=== PATIENT | female | born 1970 | race Caucasian/White ===

== ENCOUNTER 2023-12-22 20:12 | Inpatient (IN) | payer OTHER, SELFPAY ==
[2023-12-22 15:01] VITALS: BP 190/100
--- NOTE | 2023-12-22 16:39 | ED.GENMED ---
History of Present Illness
<Italia Lynn FLOOR SPACE ALLOCATOR - Last Filed: 12/24/23 16:34>
General
Chief Complaint: Skin Problem
Source: patient
Exam Limitations: none
Time Seen by Provider: 12/22/23 16:19
Nursing documentation reviewed up to this point in time: agreed with
Travel History
Have you had any contact with someone who has COVID-19?: No
Do you have any symptoms of coronavirus? Fever > 100 degrees, chills, cough, shortness of breath, sore throat, loss of taste or smell, muscle aches, or headache?: No
History of Present Illness
History of Present Illness:
53 yo female with hx of 'thrombotic genetic disorder' LLE DVT, on Xarelto for 'years' but has no taken it for 'several months.'
States 10/03/23 right foot felt numb but improved if she got up and moved around.
Has developed swelling and pain two weeks ago and has been wearing a compression stocking since, states she didn't realize how discolored it was until 5 days ago.
Has developed significant left lower leg swelling of calf over past 2 weeks.
Denies fever/chills. Denies CP or SOB. Denies n/v.
Past History
<Italia Lynn FLOOR SPACE ALLOCATOR - Last Filed: 12/24/23 16:34>
Past History
ED Past Medical History: Other ('Thrombotic genetic deficiency') and Other (DVT L LE)
ED Past Surgical History: Gynecological
Social History
Tobacco: Smoker
Personal: Single
Living: with family
Employment: Employed (Works from home)
Review of Systems
<Italia Lynn, FLOOR SPACE ALLOCATOR - Last Filed: 12/24/23 16:34>
Review of Systems
Allergies reviewed?: Yes
All Other Systems: ROS reviewed and negative except as documented in HPI and ROS
Constitutional: Denies fever
Cardiac: Denies chest pain
ABD/GI: Denies abdominal pain, nausea or vomiting
: Denies dysuria
Musculoskeletal: Reports edema
Skin: Reports other (Pain, discoloration, swelling right foot, black middle right toe, swelling left calf)
Phy Exam
<Italia Lynn, FLOOR SPACE ALLOCATOR - Last Filed: 12/24/23 16:34>
Physical Exam
Physical Exam:
GENERAL: No acute distress. A&Ox3.
CONSTITUTIONAL: Afebrile.
EYES: PERRL, conjunctivae normal
Neck: Supple
ENMT: moist mucus membranes, Pharynx nl
RESPIRATORY: Regular respirations, nonlabored, lungs clear.
CARDIOVASCULAR: Regular rate and rhythm, no murmurs, no rubs.
GI: Soft, nontender, normal BS
MUSCULOSKELETAL: Right lower extremity with ischemic distal foot; necrotic right middle toe, redness, purplish hue and cold foot. No audible Doppler PT or dorsal pulses, faint popliteal pulse audible
Left lower extremity with significant Swelling, no redness or warmth, faint dorsal and PT pulses audible with Doppler.
SKIN: Warm, dry, pink
PSYCH: Normal mood and affect. Well kept, interactive and appropriate
NEUROLOGIC: Awake, alert and oriented. No focal neurological deficits
Course
<Italia Lynn, FLOOR SPACE ALLOCATOR - Last Filed: 12/24/23 16:34>
Orders/Labs/Results
Orders:
Orders
12/22/23 Breakfast
Regular
At Your Request: Full Participation
Does patient need a safe tray?: No
12/22/23 16:33
CT Abd Aorta Angio W/ Run Off Urgent
Comment:
Reason For Exam: ischemic R foot
12/22/23 16:44
HYDROmorphone [Dilaudid] 0.5 mg .ROUTE .STK-MED ONE
12/22/23 16:51
Complete Blood Count/With Diff Urgent
Comprehensive Metabolic Panel Urgent
Protime/PTT Urgent
12/22/23 16:56
Heparin 6,200 units IV NOW STA
12/22/23 16:[address] Non Medication Order As Directed
Physician Order: PTT 6 hours after initial start of Heparin infusion
Above order entered?: Yes
12/22/23 17:00
Heparin 37308 Units/250 ml 25,000 units in 250 ml IV PER PROTOCOL
Weight to be used for heparin protocol in kilograms (kg):: 77.7
Protocol:: Vascular Surgery
PTT Goal Range to be used:: PTT 73 to 111 seconds
Order type:: Initial
INITIAL Infusion Dose (UNITS/KG/hr) & then follow protocol:: 18 units/kg/hr
Infusion Dose in UNITS/hr & then follow protocol (UNITS/hr):: 1,400
INFUSION RATE in mL/hr & then follow protocol (mL/hr):: 14
PTT less than or equal to 64 seconds:: Notify Ordering Provider. obtain orders for rate increase &
possible bolus
PTT 64.1 to 72.9 seconds:: Increase rate by 100 units/hr (+ 1 mL/hr)
PTT 73 to 111 seconds:: Target Range. No change in rate.
PTT 111.1 to 130.9 seconds:: Decrease rate by 100 units/hr (- 1 mL/hr)
PTT 131 to 199.9 seconds:: HOLD for 1 hour. Then decrease rate by 200 units/hr (- 2 mL/hr)
PTT greater than or equal to 200 seconds:: STOP INFUSION. Notify Ordering provider to obtain further orders.
Lab follow-up:: Each change, PTT q6h until 2 consecutive are therapeutic. Then PTT
daily.
12/22/23 17:01
HYDROmorphone [Dilaudid] 0.5 mg IV NOW STA
12/22/23 18:24
Electrocardiogram (*1) Urgent
Reason for Study: Tachycardia
12/22/23 19:36
Admit/Transfer Patient As Directed
Co-Sign Provider:
Level of Care: Inpatient admission
Assign to:: IVU
Physician / Group: Tony Guzman
Diagnosis: Right Ischemic Foot
Reason for Hospitalization: heparin drip
Expected length of stay greater than two midnights?: Yes
ELOS- Estimated Length of Stay in days: 3
I certify the patient meets the requirements for IP care: Yes
12/22/23 19:37
Code Status As Directed
Resuscitation Status: Full Code
12/22/23 20:34
Acetaminophen [Tylenol] 650 mg PO Q4HPRN PRN
12/22/23 20:34
Vascular Surgery Consult Routine
Consulting Provider: Homer Cee III
Was physician already notified: Yes
Heparin Protocol- PTT Orders As Directed
PTT per Heparin protocol: -Obtain CBC and baseline PTT - if not already collected.
-Obtain PTT 6 hours from start of infusion. Then, every 6 hours until 2 consecutive
PTT's are therapeutic. Then, PTT Daily.
-With each rate change, obtain PTT every 6 hours until 2 consecutive PTT's are
therapeutic. Then, PTT Daily.
Activity As Directed
Activity Level: Out of Bed- Chair
I&O [Intake/ Output] As Directed
Frequency: q12h
Notify MD As Directed
Notify physician if: PTT is greater than or equal to 200.
Vital Signs As Directed
Frequency: Per unit guidelines
Weight As Directed
Frequency: Daily
12/22/23 23:36
PTT Urgent
12/23/23 Breakfast
NPO
Allow oral meds: Yes
Allow clear liquids: 4hrs prior to procedure
Comment: may have unrestricted clear liquid up to 4 hrs prior to scheduled procedure
12/23/23 08:33
Basic Metabolic Panel IN AM
Complete Blood Count/No Diff IN AM
Magnesium IN AM
12/24/23 03:09
Complete Blood Count/No Diff Q2D
Comment: notify provider: Platelet count < 130,000 or decrease by 50% from baseline
Abnormal Lab Results
12/22/23
16:51
Hgb 16.3 H g/dL
(12.0-16.0)
MCH 33.2 H pg
(27.0-31.0)
Absolute Neuts (auto) 7.4 H 10^3/uL
(1.4-6.5)
Absolute Monos (auto) 0.8 H 10^3/uL
(0.1-0.6)
Lymphocytes % 16.5 L %
(20.5-51.1)
Carbon Dioxide 19 L mmol/L
(22-30)
Glucose 103 H mg/dl
(70-99)
12/22/23 16:51
12/22/23 16:51
Vital Signs
Initial and Last Documented VS:
Initial Vital Signs
Temp Pulse Resp BP Pulse Ox
98.2 F 110 18 190/100 98
12/22/23 15:01 12/22/23 15:01 12/22/23 15:01 12/22/23 15:01 12/22/23 15:01
Last Documented Vital Signs
Temp Pulse Resp BP Pulse Ox
98 F 63 16 106/53 96
12/24/23 15:37 12/24/23 15:37 12/24/23 15:37 12/24/23 15:39 12/24/23 15:37
Jay Jaylt;Tito Linares DO - Last Filed: 12/22/23 20:17>
Orders/Labs/Results
Orders:
Orders
12/22/23 Breakfast
Regular
At Your Request: Full Participation
Does patient need a safe tray?: No
12/22/23 16:33
CT Abd Aorta Angio W/ Run Off Urgent
Comment:
Reason For Exam: ischemic R foot
12/22/23 16:44
HYDROmorphone [Dilaudid] 0.5 mg .ROUTE .STK-MED ONE
12/22/23 16:51
Complete Blood Count/With Diff Urgent
Comprehensive Metabolic Panel Urgent
Protime/PTT Urgent
12/22/23 16:56
Heparin 6,200 units IV NOW STA
12/22/23 16:[address] Non Medication Order As Directed
Physician Order: PTT 6 hours after initial start of Heparin infusion
Above order entered?: Yes
12/22/23 17:00
Heparin 07268 Units/250 ml 25,000 units in 250 ml IV PER PROTOCOL
Weight to be used for heparin protocol in kilograms (kg):: 77.7
Protocol:: Vascular Surgery
PTT Goal Range to be used:: PTT 73 to 111 seconds
Order type:: Initial
INITIAL Infusion Dose (UNITS/KG/hr) & then follow protocol:: 18 units/kg/hr
Infusion Dose in UNITS/hr & then follow protocol (UNITS/hr):: 1,400
INFUSION RATE in mL/hr & then follow protocol (mL/hr):: 14
PTT less than or equal to 64 seconds:: Notify Ordering Provider. obtain orders for rate increase &
possible bolus
PTT 64.1 to 72.9 seconds:: Increase rate by 100 units/hr (+ 1 mL/hr)
PTT 73 to 111 seconds:: Target Range. No change in rate.
PTT 111.1 to 130.9 seconds:: Decrease rate by 100 units/hr (- 1 mL/hr)
PTT 131 to 199.9 seconds:: HOLD for 1 hour. Then decrease rate by 200 units/hr (- 2 mL/hr)
PTT greater than or equal to 200 seconds:: STOP INFUSION. Notify Ordering provider to obtain further orders.
Lab follow-up:: Each change, PTT q6h until 2 consecutive are therapeutic. Then PTT
daily.
12/22/23 17:01
HYDROmorphone [Dilaudid] 0.5 mg IV NOW STA
12/22/23 18:24
Electrocardiogram (*1) Urgent
Reason for Study: Tachycardia
12/22/23 19:36
Admit/Transfer Patient As Directed
Co-Sign Provider:
Level of Care: Inpatient admission
Assign to:: IVU
Physician / Group: Tony Guzman
Diagnosis: Right Ischemic Foot
Reason for Hospitalization: heparin drip
Expected length of stay greater than two midnights?: Yes
ELOS- Estimated Length of Stay in days: 3
I certify the patient meets the requirements for IP care: Yes
12/22/23 19:37
Code Status As Directed
Resuscitation Status: Full Code
12/22/23 20:34
Acetaminophen [Tylenol] 650 mg PO Q4HPRN PRN
12/22/23 20:34
Vascular Surgery Consult Routine
Consulting Provider: Homer Cee III
Was physician already notified: Yes
Heparin Protocol- PTT Orders As Directed
PTT per Heparin protocol: -Obtain CBC and baseline PTT - if not already collected.
-Obtain PTT 6 hours from start of infusion. Then, every 6 hours until 2 consecutive
PTT's are therapeutic. Then, PTT Daily.
-With each rate change, obtain PTT every 6 hours until 2 consecutive PTT's are
therapeutic. Then, PTT Daily.
Activity As Directed
Activity Level: Out of Bed- Chair
I&O [Intake/ Output] As Directed
Frequency: q12h
Notify MD As Directed
Notify physician if: PTT is greater than or equal to 200.
Vital Signs As Directed
Frequency: Per unit guidelines
Weight As Directed
Frequency: Daily
12/22/23 23:36
PTT Urgent
12/23/23 Breakfast
NPO
Allow oral meds: Yes
Allow clear liquids: 4hrs prior to procedure
Comment: may have unrestricted clear liquid up to 4 hrs prior to scheduled procedure
12/23/23 08:33
Basic Metabolic Panel IN AM
Complete Blood Count/No Diff IN AM
Magnesium IN AM
12/24/23 03:09
Complete Blood Count/No Diff Q2D
Comment: notify provider: Platelet count < 130,000 or decrease by 50% from baseline
Abnormal Lab Results
12/22/23
16:51
Hgb 16.3 H g/dL
(12.0-16.0)
MCH 33.2 H pg
(27.0-31.0)
Absolute Neuts (auto) 7.4 H 10^3/uL
(1.4-6.5)
Absolute Monos (auto) 0.8 H 10^3/uL
(0.1-0.6)
Lymphocytes % 16.5 L %
(20.5-51.1)
Carbon Dioxide 19 L mmol/L
(22-30)
Glucose 103 H mg/dl
(70-99)
12/22/23 16:51
12/22/23 16:51
Vital Signs
Initial and Last Documented VS:
Initial Vital Signs
Temp Pulse Resp BP Pulse Ox
98.2 F 110 18 190/100 98
12/22/23 15:01 12/22/23 15:01 12/22/23 15:01 12/22/23 15:01 12/22/23 15:01
Last Documented Vital Signs
Temp Pulse Resp BP Pulse Ox
98 F 63 16 106/53 96
12/24/23 15:37 12/24/23 15:37 12/24/23 15:37 12/24/23 15:39 12/24/23 15:37
Jay Jaylt;Italia Lynn, FLOOR SPACE ALLOCATOR - Last Filed: 12/24/23 16:34>
MDM/Problems Addressed
Differential Diagnosis Includes:
LLE DVT
RLE limb ischemia, gangrene toe
MDM/Problems Addressed:
53 yo female with hx of 'thrombotic genetic disorder' LLE DVT, on Xarelto for 'years' but has no taken it for 'several months.'
States 10/03/23 right foot felt numb but improved if she got up and moved around.
Has developed swelling and pain two weeks ago and has been wearing a compression stocking since, states she didn't realize how discolored it was until 5 days ago.
Has developed significant left lower leg swelling of calf over past 2 weeks.
Denies fever/chills. Denies CP or SOB. Denies n/v.
Right lower extremity with ischemic distal foot; necrotic right middle toe, redness, purplish hue and cold foot. No audible Doppler PT or dorsal pulses, faint popliteal pulse audible
Left lower extremity with significant Swelling, no redness or warmth, faint dorsal and PT pulses audible with Doppler
Dr. Linares in to evaluate. CTA with runoff ordered. Heparin drip started
Consulted Vascular surgeon Dr. Cee who will evaluate patient
12/22/[address] Linares updated, he will assume care from this point.
Patient is awaiting CTA with runoff.
<Italia Lynn FLOOR SPACE ALLOCATOR - Last Filed: 12/24/23 16:34>
*Critical Care Note
Total Time (30-74mins, 75-104mins- exclusive of procedures): Not Applicable
ED Attending Note
<Italia Lynn FLOOR SPACE ALLOCATOR - Last Filed: 12/24/23 16:34>
-
Portions of this chart may have been created with voice recognition software.� Occasional wrong word or��sound alike� substitutions may have occurred due to the inherent limitations of voice recognition software.
<Tito Linares DO - Last Filed: 12/22/23 20:17>
ED Attending Note
Patient seen and examined by attending physician: Yes
I performed the substantive portion of visit, reviewed & personally made and approve the management plan that is documented in note by myself or RAHUL.: Yes
ED Attending Note:
I agree with Terra's note
Patient with pain and discoloration of right foot. Patient began having some foot discomfort approximately 3 months ago. She was also having claudication with exertion. Over the past 2 weeks symptoms have increased in severity. She began
noticing some discoloration of the foot. Patient states she was wearing some sort of compression sock to help improve blood flow of her legs and was not able to visualize her foot for several days. Recently when she removed the compression socks
she noted discoloration of her toes.
Vital signs are unremarkable
General: Awake, Alert, Oriented X3. No acute distress.
Vitals: unremarkable
Head: Atraumatic
Eyes: Pupils equal, EOMI
Throat: Airway intact, no exudates
Neck: Trachea midline
Lungs: Clear and equal b/l
Heart: Regular rate, no murmurs
Abd: Soft, Nontender, No pulsatile mass
Neuro: Nonfocal
Skin: Warm, dry, no rash
Right lower extremity: Limb is cold from the mid tibia down. There is mottling of the foot and alek gangrene of the third toe. No palpable pulses. DP and PT pulses are not detectable with Doppler device.
Heparin drip
Vascular eval
CT angiogram with runoff
Admit to the hospitalist
Discharge Plan
Departure
Patient Disposition: Admit
Date of Disposition: 12/22/23
Time of Disposition: 18:26
Presentation/result/management discussed w/ accepting MD/DO: Dr. Cee
Condition: Serious
Discharge Problem:
Critical limb ischemia of right lower extremity with ulceration of foot, Swelling of left lower extremity
Interventions
Interventions:
*Risk Screen - Suicide Last Done: 12/22/23 16:55
*General Assessment Last Done: 12/22/23 16:55
*Neglect/Abuse Screening Last Done: 12/22/23 16:55
ED- Fall Risk Assessment Last Done: 12/22/23 16:59
*ED COVID-19 Vaccine History Last Done: 12/22/23 16:55
*Nursing Disposition Last Done: 12/22/23 20:40
ED-Skin Assessment Last Done: 12/22/23 16:59
Discharge Date and Time
Discharge Date/Time: 12/22/23 20:41
[2023-12-22 16:54] VITALS: BMI 29.4
[2023-12-22 16:58] LABS: % Basophils 0.3 % (0-2); % Eosinophils 0.1 % (0-6); % Immature Granulocytes 0.2 % (0-0.5); % Lymphocytes 16.5 % (20.5-51.1); % Monocytes 7.7 % (1.7-9.3); % Neutrophils 75.2 % (42.2-75.2); Absolute Lymphocytes 1.6 10^3/uL (1.2-3.4); Absolute Monocytes 0.8 10^3/uL (0.1-0.6); Absolute Neutrophils 7.4 10^3/uL (1.4-6.5); Hematocrit 46.9 % (37.0-47.0); Hemoglobin 16.3 g/dL (12.0-16.0); Mean Corp Hgb Conc. 34.8 g/dL (33.0-37.0); Mean Corpuscular Hgb 33.2 pg (27.0-31.0); Mean Corpuscular Volume 95.5 fL (81.0-99.0); Mean Platelet Volume 9.7 fL (7.4-10.4); Nucleated Red Blood Cells % 0 %; Platelet Count 263 10^3/uL (130-400); Red Blood Cell Count 4.91 10^6/uL (4.20-5.40); Red Cell Dist. Width 12.9 % (11.5-14.5); White Blood Cell Count 9.8 10^3/uL (4.8-10.8)
[2023-12-22] MEDS: DILAUDID 0.5 MG IV (17:01)
[2023-12-22 17:10] LABS: APTT 25.9 Sec (23.4-35.0); INR 0.96; PT 12.5 Sec (11.4-14.6)
[2023-12-22 17:14] LABS: ALT (SGPT) 20 U/L (0-35); AST (SGOT) 27 U/L (14-36); Albumin 4.2 g/dl (3.5-5.0); Alkaline Phosphatase 118 U/L (38-126); Blood Urea Nitrogen 11 mg/dl (7-17); Calcium 9.5 mg/dl (8.4-10.2); Carbon Dioxide 19 mmol/L (22-30); Chloride 105 mmol/L (98-107); Estimated Creatinine Clearance 109 ml/min; Glucose 103 mg/dl (70-99); Potassium 4.4 mmol/L (3.5-5.1); Sodium 137 mmol/L (135-145); Total Protein 7.7 g/dl (6.3-8.2); eGFR > 60.00
[2023-12-22] MEDS: HEPARIN 25000 UNITS/250 ML IV (17:29)
[2023-12-22] MEDS: HEPARIN 6200 UNITS IV (17:29)
--- NOTE | 2023-12-22 18:28 | CON.VAS ---
Consultation
Consultation Request
Date/Time Consultation Requested: 12/22/23
Date/Time Consultation Performed: 12/22/23
Requesting Provider: ED
Performing Provider: Coleman
Reason for Consultation: Ischemic right foot
Medical History
-
Chief Complaint: Ischemic right foot
History of Present Illness:
53-year-old female with past medical history notable for multiple left lower extremity DVTs, hypercoagulability with prothrombin gene mutation, noncompliance with anticoagulation and active smoking (1 pack/day times ~ 40 years) who presents to the
ED with painful discoloration of her right foot.
She notes numbness starting in her right foot and toes around Thanksgiving. Progressively worse since that time. 3 to 4 weeks of worsening right foot pain and progressive discoloration. Initially tried to treat the symptoms with a compression
sock and reports that she did not look at her foot for a while. She now has diffuse ischemic skin changes of her right foot and toes with dry gangrene.
She has not taken her anticoagulation in over a month.
She also notes 3 to 4-day onset of significant left calf swelling
She denies palpitations. No known history of arrhythmia.
Past Medical History
Past Medical History: Other (Multiple LLE DVT; Prothrombin gene mutation)
Social History
Tobacco: Smoker (1 ppd x 40 years; active)
Allergies / Home Medications
Allergy/AdvReac Type Severity Reaction Status Date / Time
No Known Allergies Allergy Verified 12/22/23 15:05
Medication Instructions Recorded Confirmed Type
naproxen sodium 220 mg tablet 220 mg PO BID PRN MILD PAIN 12/22/23 12/22/23 History
(Aleve)
Review of Systems
-
All other systems: Negative unless noted
Physical Exam
Vital Signs
Temp Pulse Resp BP Pulse Ox
98.2 F 110 18 190/100 98
12/22/23 15:01 12/22/23 15:01 12/22/23 15:01 12/22/23 15:01 12/22/23 15:01
Lab Results
12/22/23 16:51
12/22/23 16:51
Physical Exam
General: Well Developed, Well Nourished and Other (Seems inappropriately calm considering the appearance of her foot)
HEENT: Normocephalic and Anicteric
Respiratory: Non Labored Respirations
Cardiac: Regular Rhythm
Musculoskeletal: Edema (asymmetric Left calf edema; right calf is soft and warm to touch.)
Skin: Warm and Other (Ischemic changes to right foot and toes. Dry gangrene present. Foot is cool vs the left. See images. )
Neuro: AO x 3
Psych: Calm
Pulses: Bilateral Femoral: +2, Right Popliteal: Doppler, Right Dorsalis Pedis: Doppler (No dopp signal present) and Right Posterior Tibial: Doppler (No dopp signal present)
Assessment / Plan
-
Significant ischemia of the right foot and toes with symptom onset at the end of September 2023 and progressing since that time. She is an active smoker and has a hypercoagulable state from prothrombin gene mutation. She has been noncompliant with
anticoagulation.
Obtain CT angiogram of the abdomen, pelvis and bilateral lower extremity runoff
Obtain left lower extremity venous duplex to rule out acute DVT given recent onset left calf swelling
Heparin drip with titration to therapeutic PTT goal
N.p.o. after midnight for possible right lower extremity arteriogram 12/23/2023
I explained to the patient that her foot may not be salvageable and she may ultimately require major amputation.
Homer Cee III, MD
[facility] Vascular Surgery
[phone] (turw)
Data Reviewed
-
Labs: Labs Reviewed by me
[2023-12-22 18:46] VITALS: BP 143/79
--- NOTE | 2023-12-22 19:22 | HPS.HSE ---
Addendum entered and electronically signed by Tony Guzman MD 12/23/23 08:42:
53-year-old female with a past medical history of hypercoagulability with prothrombin gene mutation, multiple left lower extremity DVTs, noncompliance with anticoagulation, and active cigarette nicotine dependency presents with pain, and numbness of
her right toes. Her right third toe is necrotic. She admits to stopping her Xarelto a few months ago because she is 'not good with medications'.
Will treat with IV heparin drip, n.p.o. after midnight, patient for right lower extremity arteriogram as per vascular surgery.
I have personally seen and examined the patient on 12/22/23, and agree with the plan of care as documented by Maria Luisa Laguerre PA-C.
Advance care planning discussed, patient is a full code.
All other issues as outlined by the advanced care practitioner.
Original Note:
Family Physician
-
Family Physician: NOT KNOW UNKNOWN - PT DOES
Chief Complaint
-
Right foot discoloration
History of Present Illness
Pt is a 53 yo F with past medical history of several superficial clots and two DVTs over the last 30 years who is presenting today complaining of loss of sensation to the distal right foot. She states the sensation of numbness began 5 days ago, but
she described this as 'nerve pain' and thought it was sciatica. She states that she had been able to move around and the feeling would return initially, but she noticed discoloration of the third and fourth toe and decided to come in when the third
toe became black. She had been taking Xarelto but states that she 'is not good at taking medications' and stopped taking them a few months ago. She also admits to currently smoking a pack of cigarettes daily and advises that she is aware of her need
to quit.
Medical History
Past Medical History
Past Medical History: Reports Other
Additional Past Medical History:
Multiple DVTs
Anti-Thrombin Deficiency
Past Surgical History: Reports Gynocological
Social History
Tobacco: Smoker (1 ppd)
Alcohol: Occasional
Family History
Family History: Adopted
Allergies / Home Medications
Allergies reflects when Allergies were last updated in [facility].
Home Medications with original date entered in [facility]
Allergy/Medication List:
Allergies
Allergy/AdvReac Type Severity Reaction Status Date / Time
No Known Allergies Allergy Verified 12/22/23 15:05
Home Medications
naproxen sodium 220 mg tablet (Aleve) 220 mg PO BID PRN MILD PAIN 12/22/23
Review of Systems
-
A 12 point ROS was completed and negative except as noted: Yes
Constitutional: Denies Fever or Chills
Respiratory: Denies Cough or Trouble Breathing
Cardiac: Denies Chest Pain or Palpitations
Physical Exam
Vital Signs
Vital Signs
Temp Pulse Resp BP Pulse Ox
98.2 F 95 18 143/79 94
12/22/23 15:01 12/22/23 18:46 12/22/23 18:46 12/22/23 18:46 12/22/23 18:46
Physical Exam
General: Comfortable and Conversant
HEENT: Anicteric and Moist mucous membranes
Respiratory: Clear and Non Labored Respirations
Cardiac: S1/S2 and Regular Rhythm
GI: Soft and Non Tender
Rectal: Deferred by Provider
Musculoskeletal: No Clubbing, No Cyanosis, Edema, Left Lower Extremity and Edema, Right Lower Extremity
Skin: Other (Right third toe necrotic, Skin discoloration of all other toes; Right Foot cold to touch)
Neuro: Awake, Alert and Oriented
Psych: Calm
Laboratory Results
-
12/22/23 16:51
12/22/23 16:51
Laboratory Results
PT 12.5 Sec (11.4-14.6) 12/22/23 16:51
INR 0.96 12/22/23 16:51
APTT Cancelled 12/22/23 16:58
Total Bilirubin 1.0 mg/dl (0.2-1.3) 12/22/23 16:51
AST 27 U/L (14-36) 12/22/23 16:51
ALT 20 U/L (0-35) 12/22/23 16:51
Alkaline Phosphatase 118 U/L (38-126) 12/22/23 16:51
Data Reviewed
-
Lab Data: Labs Reviewed by me
Impression/Plan
-
Right Foot Ischemia
-Consult Vascular Surgery
-Continue heparin drip
-NPO after midnight for RLE Arteriogram tomorrow
Anti-Thrombin III Deficiency
-Patient previously on Xarelto but stopped taking several months ago
Tobacco Use Disorder
-Encourage smoking cessation
Code Status: Full Code
[2023-12-22 20:45] VITALS: BMI 29.7
[2023-12-22 20:49] VITALS: BP 131/74
[2023-12-22] MEDS: TYLENOL 650 MG PO (21:20)
[2023-12-22 23:38] VITALS: BP 132/74
[2023-12-23] VITALS (17 sets, daily range): BP systolic 114–141; BP diastolic 57–84; BMI 29.4
[2023-12-23 00:37] LABS: APTT 160.9 Sec (23.4-35.0)
[2023-12-23] MEDS: TYLENOL 650 MG PO ×4 (01:46→16:45)
--- NOTE | 2023-12-23 04:44 | PTCARENOTE ---
Addendum entered by Vivian Alvarado RN 12/23/23 04:55:
IV heparin gtt infusing at 12ml/hr, next ptt due at 07:40. Will pass along to day shift RN.
Original Note:
Received patient from ED via stretcher into room 2241 at approximately 20:35. Patient ambulated self to bed, and is partial weightbearing on right foot d/t the pain. Right lower leg w/ trace edema, and unable to Doppler pedal pulses. Per Dr. Cee
report, assessment unchanged. Left lower leg red, warm to touch, and +2 pitting edema. See nursing assessment for further skin assessment. WOC consulted. Tele monitor applied pt SR-Sinus bradycardia. VSS, and sating 96% RA. Patient aware of NPO
status. Oriented patient to room, call chowdary within reach.
[2023-12-23 08:58] LABS: APTT 92.9 Sec (23.4-35.0)
[2023-12-23 09:02] LABS: Hematocrit 41.3 % (37.0-47.0); Hemoglobin 14.3 g/dL (12.0-16.0); Mean Corp Hgb Conc. 34.6 g/dL (33.0-37.0); Mean Corpuscular Hgb 32.9 pg (27.0-31.0); Mean Corpuscular Volume 94.9 fL (81.0-99.0); Mean Platelet Volume 10.3 fL (7.4-10.4); Platelet Count 226 10^3/uL (130-400); Red Blood Cell Count 4.35 10^6/uL (4.20-5.40); Red Cell Dist. Width 12.9 % (11.5-14.5); White Blood Cell Count 8.5 10^3/uL (4.8-10.8)
[2023-12-23 09:42] LABS: Blood Urea Nitrogen 14 mg/dl (7-17); Calcium 9.1 mg/dl (8.4-10.2); Carbon Dioxide 22 mmol/L (22-30); Chloride 108 mmol/L (98-107); Estimated Creatinine Clearance 94 ml/min; Glucose 98 mg/dl (70-99); Magnesium 2.2 mg/dl (1.6-2.3); Potassium 4.1 mmol/L (3.5-5.1); Sodium 138 mmol/L (135-145); eGFR > 60.00
--- NOTE | 2023-12-23 10:32 | W.PN.HOSP.TC ---
Today's Communication/Plan
-
For right lower extremity arteriogram today
Assessment / Plan
Assessment / Plan
HPI: 53-year-old female with a past medical history of hypercoagulability with prothrombin gene mutation, multiple left lower extremity DVTs, noncompliance with anticoagulation, and active cigarette nicotine dependency presents with pain, and
numbness of her right toes.� Her right third toe is necrotic.� She admits to stopping her Xarelto a few months ago because she is 'not good with medications'.
Right Foot Ischemia
-Appreciate vascular surgery input, for RLE Arteriogram today
-Continue heparin drip, pain meds
Anti-Thrombin III Deficiency
Medication noncompliance
-Patient previously on Xarelto but stopped taking several months ago
Tobacco Use Disorder
-Encourage smoking cessation, nicotine patch as needed
DVT prophylaxis�heparin drip
Full code
Physical Exam
General: No acute distress
HEENT: Normocephalic, Atraumatic, EOMI, MMM
Respiratory: Clear to Auscultation bilaterally
Cardiac: Normal S1/S2, Regular Rate and Rhythm
GI: Soft, Nontender, Nondistended, Normal Bowel Sounds
Extremities: No Clubbing, Cyanosis
Bilateral lower extremity edema noted
Erythema of right toes with necrotic right third toe noted
Anticipated Discharge: > 48 hours
Subjective/Interval History
-
Date of Service: December 23, 2023
Patient reports her right toe pain is tolerable.
Objective Data
-
Labs:
Laboratory Results
12/22/23 12/23/23
23:36 08:33
WBC 8.5
Hgb 14.3
Hct 41.3
Plt Count 226
APTT 160.9 H* 92.9 H
Sodium 138
Potassium 4.1
Chloride 108 H
Carbon Dioxide 22
BUN 14
Creatinine 0.7
Glucose 98
Calcium 9.1
Vital Signs:
Vital Signs
Temp Pulse Resp BP Pulse Ox
98.1 F 59 16 139/73 98
12/23/23 06:45 12/23/23 07:00 12/23/23 06:45 12/23/23 06:47 12/23/23 08:00
I&O
12/22/23 12/23/23 12/24/23
06:59 06:59 06:59
Intake Total 490 / 490
Balance 490 / 490
--- NOTE | 2023-12-23 14:06 | W.PN.UPDATE ---
Update Note
Progress Note Update
Updated patient on the results of her CTA. Extensive RLE occlusions involving the PFA/SFA with limited tibial reconstitution. I dont see any reconstitution of the profunda in the thigh. Symptoms have been ongoing since the end of September 2023 with
recent progression of right foot pain over 3-4 weeks. CTA and venous duplex also demonstrate left iliac vein occlusion with DVT involving CFV/pop vein.
I am recommending a RLE arteriogram. Unclear if there are any revascularization options at this point based on the CTA. Explained that she may require an amputation if revascularization cannot be performed.
Technical aspects of arteriogram and possible endovascular intervention discussed with her in detail. Benefits and rationale for this approach discussed with her. Operative risks discussed with her in detail including but not limited to bleeding,
infection, contrast nephropathy, distal embolization and limb loss. She expressed a clear understanding and agrees to proceed.
--- NOTE | 2023-12-23 14:19 | W.SUR.PREOP ---
Pre-Operative Surgical Note
-
I have examined this patient prior to the performance of the scheduled procedure.
The patient's condition is unchanged from the time of the current History and
Physical and the patient is able to undergo the scheduled procedure.
--- NOTE | 2023-12-23 14:22 | WOUNDNOTE ---
MEREDITH RN NOTE: Patient admitted with critical limb ischemia or R leg/foot. Viewed pictures taken by vascular. Patient currently off floor getting an arteriogram, nurse Ritu said she just left. No reported drainage and no dressing in use states nurse.
Will follow along peripherally and assist as needed.
--- NOTE | 2023-12-23 14:45 | CM ---
spoke to pt in room, she is prev indep, lives withher son in a 2 story home with a first floor set up. she denies any dme's. dc plans uncertain at this time. cm following.
--- NOTE | 2023-12-23 15:12 | W.SUR.POST ---
Surgical Immediate Post Op
Note
Pre Op Diagnosis: PAD, right lower extremity nonhealing wound
Post Op Diagnosis: PAD, right lower extremity nonhealing wound
Procedure Performed: Aortogram, diagnostic right lower extremity arteriogram
Primary Surgeon: Homer Cee III, MD
Secondary Surgeons: N/A
Anesthesia: MAC
Estimated Blood Loss: 3 mL
Fluids: See anesthesia flowsheet
Drains/Shunts: N/A
Specimens/Cultures: N/A
Doppler/Duplex/Angio (Y/N): Y
Complications: None
Operative Findings: Peripheral artery disease not amenable to endovascular revascularization
--- NOTE | 2023-12-23 16:05 | OR.RPT ---
Operative Report
Operative Report
Date of Operation: 12/23/2023
Pre Op Diagnosis: Critical limb threatening ischemia right lower extremity
Post Op Diagnosis: Critical limb threatening ischemia right lower extremity
Procedure:
1.) Selective catheterization of second-order lower extremity artery
2.) Diagnostic aortobiiliac arteriogram
3.) Diagnostic right lower extremity arteriogram
4.) Ultrasound-guided percutaneous access to the left common femoral artery
Surgeon: Homer Cee III, MD
Anesthesia: Sedation with local
Fluoroscopy:
10.9 min
86 mGy
23.31 Gy.cm2
Complications: None
Estimated Blood Loss: Less than 10 cc
History and Indications for Procedure: 53-year-old female with active smoking and hypercoagulable state secondary to prothrombin gene mutation. She presents with chronic and progressive right lower extremity ischemia with symptom onset at the end
of September.
Procedure in Detail: Susan Nguyen was correctly identified and placed supine on the operating table. After adequate induction of anesthesia the bilateral groins were prepped and draped in the usual sterile fashion. A timeout was performed with
the nursing and anesthesia staff confirming the patient's identity as well as the nature and laterality of the procedure.
The left common femoral artery was identified under ultrasound guidance. The artery was patent. The superior and inferior aspects of the femoral head were identified with radiographic guidance and marked at the skin level. The proposed puncture site
was infiltrated with local anesthesia. We saved a copy of the ultrasound image to the medical record. Under ultrasound guidance we accessed the left common femoral artery with a micropuncture needle and upsized to a 5 Fr sheath over a Bentson wire.
The wire and a [employer] hook flush catheter were advanced into the distal abdominal aorta and a diagnostic aorto-biiliac arteriogram was performed:
AORTO-ILIAC ARTERIOGRAM:
Aorta: Patent with no stenosis identified.
Right common iliac artery: Patent with no stenosis identified
Right external iliac artery: Patent with no stenosis identified
Left common iliac artery: Patent with no stenosis identified
Left external iliac artery: Patent with no stenosis identified
Under roadmap guidance using a Glidewire and the [employer] hook catheter we selected the right common iliac artery and then the external iliac artery. A catheter was tracked up and over the aortic bifurcation and placed in the distal external iliac
artery. A diagnostic right lower extremity arteriogram was then performed which demonstrated the following:
RIGHT LOWER EXTREMITY:
Common femoral artery: Patent with no stenosis identified
Profunda femoral artery: Occluded at its origin. Reconstitution of some distal profunda branches in the thigh is identified via superficial femoral artery branch collaterals.
Superficial femoral artery: Patent to the mid thigh. Abruptly occludes. Large dilated collateral branch at the site of occlusion continues distally in the thigh. Dilated SFA branches in the thigh.
Popliteal artery: Occluded
Anterior tibial artery: Occluded with no distal reconstitution. No reconstitution of the dorsalis pedis artery is identified.
Tibioperoneal trunk: Occluded
Peroneal artery: Reconstitutes in the mid/distal calf. Branches at the ankle reconstitute the posterior tibial artery behind the medial malleolus.
Posterior tibial artery: Occluded. Peroneal collaterals reconstitute the PT behind the ankle. Plantar branch flow is seen however there is no contrast flow beyond the midfoot.
Satisfied with this diagnostic result we then concluded the procedure. The catheter was removed from the 5 [place] sheath. The sheath was secured in place with the plan to pull it in the recovery room.
The patient tolerated the procedure well and was taken to the recovery area in stable condition.
Signed:
Homer Cee III, MD
[facility] Vascular Surgery
[phone] (oick)
--- NOTE | 2023-12-23 17:03 | PTCARENOTE ---
pt received this am with moderate pain in right foot and toes. Pt taking tylenol 650mg with partial relief. Pt denies need for morphine. Ambulating to the bathroom, gait steady. Pt received post procedure from PACU at 1637. Pt awake, alert and
oriented. Medicated with tylenol 650 mg po as requested for right foot pain. Left groin site dressing dry and intact with no hematoma. Bedrest and flat maintained as ordered.
[2023-12-23] MEDS: NSS 1000 IV (17:14)
--- NOTE | 2023-12-23 18:41 | PTCARENOTE ---
Pt oob to the chair and to the BR with the walker. Gait steady. C/o of mild dyspnea with exertion. Pt states she occasionally has brief periods of indigestion. Pt for DAVID/CV in the am.
[2023-12-23] MEDS: PERCOCET 5/325 1 TABLET PO (19:10)
[2023-12-23] MEDS: HEPARIN 25000 UNITS/250 ML IV (21:02)
--- NOTE | 2023-12-23 21:38 | PTCARENOTE ---
Assumed care of patient at change of shift. Left groin dressing C/D/I w/ positive left pedal pulse. Bedrest completed at 21:25. Patient ambulated self, and denies any dizziness. IV Heparin gtt resumed per order, and currently infusing at 12ml/hr.
Next ptt due at 03:05. Patient c/o intermittent pain in her right foot, Percocet 1 tablet administered--see MAR for details. Patient aware of POC, call chowdary in reach.
[2023-12-23] MEDS: PERCOCET 5/325 2 TABLET PO (23:11)
[2023-12-24 03:17] LABS: Hematocrit 40.1 % (37.0-47.0); Hemoglobin 13.9 g/dL (12.0-16.0); Mean Corp Hgb Conc. 34.7 g/dL (33.0-37.0); Mean Corpuscular Hgb 32.3 pg (27.0-31.0); Mean Platelet Volume 9.7 fL (7.4-10.4); Platelet Count 224 10^3/uL (130-400); Red Blood Cell Count 4.31 10^6/uL (4.20-5.40); Red Cell Dist. Width 12.8 % (11.5-14.5); White Blood Cell Count 9.5 10^3/uL (4.8-10.8)
[2023-12-24 03:19] VITALS: BP 127/73
[2023-12-24 03:41] LABS: APTT 78.8 Sec (23.4-35.0)
[2023-12-24 04:23] LABS: Blood Urea Nitrogen 12 mg/dl (7-17); Calcium 8.4 mg/dl (8.4-10.2); Carbon Dioxide 21 mmol/L (22-30); Chloride 112 mmol/L (98-107); Estimated Creatinine Clearance 94 ml/min; Glucose 141 mg/dl (70-99); Magnesium 2.1 mg/dl (1.6-2.3); Sodium 136 mmol/L (135-145); eGFR > 60.00
[2023-12-24 04:33] LABS: Potassium 4.3 mmol/L (3.5-5.1)
[2023-12-24 06:00] VITALS: BMI 29.3
--- NOTE | 2023-12-24 06:27 | W.PN.UPDATE ---
Update Note
Progress Note Update
I had a long conversation yesterday evening with Susan. I explained the results of her arteriogram. She has an occluded right profunda femoral artery, distal SFA occlusion, occluded popliteal artery and very limited tibial reconstitution of only
the peroneal artery. Furthermore I explained that the flow into her foot is very poor with likely small vessel occlusions in her foot. The duration of ischemia is significant as evidenced by the appearance of her foot and I explained to her that I
am not confident it is salvageable.
A fem-peroneal bypass with vein is a potential option for revascularization but I explained the challenges of this procedure and the risks which include but are not limited to LA, bleeding, infection, leg swelling, DVT, wound healing complications,
failure of the bypass. Early thrombosis/occlusion of the bypass given her hypercoaguable state and poor distal runoff was discussed. The higher risk of bleeding post-operatively, given the need for early re-initiation of anticoagulation, was also
highlighted. I also explained that even in the best case scenario of a functioning bypass she would likely need multiple toe amputations at a minimum, if not a transmetatarsal amputation once her foot had completely demarcated and this would require
several trips to the OR. Even with this approach there is no guarantee that these amputation wounds would heal either. I explained that even after the bypass if her foot does not heal she could still require a major amputation of her right leg.
Other options include BKA vs AKA. I explained that the advantage of a BKA is to preserve her knee joint for later ambulation with prosthesis however I was clear with her that given the severity of her arterial disease there is a high risk that a BKA
will not heal and that she would require a more proximal amputation. The advantage of AKA was explained to her in that she would have a higher likelihood of healing the wound after one surgery but still would carry some risk given that her profunda
is occluded.
I think at this point the best option is either BKA vs AKA. I stressed the importance of compliance with anticoagulation and immediate smoking cessation as well as aggressive medical therapy for her arterial disease risk factors moving forward. She
expressed an understanding of our conversation. She would like some time to think about her options. She also expressed an interest in getting a second opinion which is understandable. Will follow along.
Homer Cee MD
Vascular Surgery
[phone]
[2023-12-24 07:35] VITALS: BP 131/81
[2023-12-24] MEDS: TYLENOL 650 MG PO ×2 (07:55→16:39)
--- NOTE | 2023-12-24 09:00 | W.PN.HOSP.TC ---
Today's Communication/Plan
-
See bold
Assessment / Plan
Assessment / Plan
HPI: 53-year-old female with a past medical history of hypercoagulability with prothrombin gene mutation, multiple left lower extremity DVTs, noncompliance with anticoagulation, and active cigarette nicotine dependency presents with pain, and
numbness of her right toes.� Her right third toe is necrotic.� She admits to stopping her Xarelto a few months ago because she is 'not good with medications'.
Critical limb ischemia right lower extremity
-Appreciate vascular surgery input, s/p RLE Arteriogram 10/22 showing 'occluded right profunda femoral artery, distal SFA occlusion, occluded popliteal artery and very limited tibial reconstitution of only the peroneal artery'
-Continue heparin drip, pain meds
-Vascular surgery recommending amputation, patient is thinking about it
Anti-Thrombin III Deficiency
Medication noncompliance
-Patient previously on Xarelto but stopped taking several months ago
Tobacco Use Disorder
-Encourage smoking cessation, nicotine patch as needed
DVT prophylaxis�heparin drip
Full code
Physical Exam
General: No acute distress
HEENT: Normocephalic, Atraumatic, EOMI, MMM
Respiratory: Clear to Auscultation bilaterally
Cardiac: Normal S1/S2, Regular Rate and Rhythm
GI: Soft, Nontender, Nondistended, Normal Bowel Sounds
Extremities: No Clubbing, Cyanosis
Bilateral lower extremity edema noted
Erythema of right toes with necrotic right third toe noted
Anticipated Discharge: > 48 hours
Subjective/Interval History
-
Date of Service: December 24, 2023
Patient's right toe pain is tolerable. She is hesitant to have an amputation.
Objective Data
-
Labs:
Laboratory Results
12/24/23 12/24/23 12/24/23
03:09 06:00 09:10
WBC 9.5
Hgb 13.9
Hct 40.1
Plt Count 224
PT Pending
INR Pending
APTT 78.8 H Pending Pending
Sodium 136
Potassium 4.3
Chloride 112 H
Carbon Dioxide 21 L
BUN 12
Creatinine 0.7
Glucose 141 H
Calcium 8.4
Vital Signs:
Vital Signs
Temp Pulse Resp BP Pulse Ox
98.1 F 58 16 127/73 98
12/24/23 07:52 12/24/23 03:19 12/24/23 07:52 12/24/23 03:19 12/24/23 03:19
I&O
12/23/23 12/24/23 12/25/23
06:59 06:59 06:59
Intake Total 490 / 490 1435 / 1435
Balance 490 / 490 1435 / 1435
[2023-12-24 09:24] LABS: INR 1.03; PT 13.5 Sec (11.4-14.6)
[2023-12-24 09:26] LABS: APTT 86.3 Sec (23.4-35.0); APTT 86.4 Sec (23.4-35.0)
--- NOTE | 2023-12-24 10:42 | CM ---
CM following for DC planning needs.
Reviewed initial assessment. Pt. resides w son in a private, 2 story home w/ [address]. Functionally, patient is indep. at baseline w/ ADLs, mobility.
Anticipated DC plan is for home once stable.
Will monitor for DC planning needs.
[2023-12-24 11:26] VITALS: BP 141/68
--- NOTE | 2023-12-24 15:15 | W.PN.VS ---
Today's Communication / Plan
-
See below.
Assessment/Plan
-
Assessment: 53-year-old female with peripheral artery disease/critical limb threatening ischemia POD #1 Diagnostic aortobiiliac arteriogram and right lower extremity arteriogram
Plan:
Can remove left Tegaderm today
Recommendation right lower extremity AKA vs. BKA
Dr. Cee to have family discussion tomorrow (12/25/2023)
Subjective Data
-
Date of Service: December 24, 2023
Patient seen and examined at bedside, offers no complaints. Reports left groin without pain or swelling. Denies nausea, vomiting, fever, and chills. Patient tearful regarding recommendation for amputation, comfort measures provided and encouraged
family discussion to address all questions and concerns.
Objective Data
-
Vital Signs
Temp Pulse Resp BP Pulse Ox
98.6 F 65 16 141/68 96
12/24/23 11:25 12/24/23 11:26 12/24/23 11:25 12/24/23 11:26 12/24/23 11:25
Intake and Output
12/23/23 12/24/23 12/25/23
06:59 06:59 06:59
Intake Total 490 / 490 1435 / 1435
Balance 490 / 490 1435 / 1435
Intake:
Oral fluids 360 / 360 735 / 735
IV fluids (Total) 130 / 130 700 / 700
Heparin 130 / 130 120 / 120
NS 580 / 580
Other:
Number of approximated MODERATE 2 3
amounts of urine
Lab Results
12/24/23 03:09
12/24/23 03:09
Calcium 8.4 mg/dl (8.4-10.2) 12/24/23 03:09
Magnesium 2.1 mg/dl (1.6-2.3) 12/24/23 03:09
Total Bilirubin 1.0 mg/dl (0.2-1.3) 12/22/23 16:51
AST 27 U/L (14-36) 12/22/23 16:51
ALT 20 U/L (0-35) 12/22/23 16:51
Alkaline Phosphatase 118 U/L (38-126) 12/22/23 16:51
Total Protein 7.7 g/dl (6.3-8.2) 12/22/23 16:51
Albumin 4.2 g/dl (3.5-5.0) 12/22/23 16:51
Physical Exam
-
AAOx3
No tachycardia
No dyspnea on room air
ABD flat, nontender, nondistended
Left groin CDI, no evidence of hematoma, ulcer on compartment soft
[2023-12-24 15:39] VITALS: BP 106/53
[2023-12-24] MEDS: MIRALAX PO (16:37)
[2023-12-24 19:02] VITALS: BP 114/73
[2023-12-24] MEDS: HEPARIN 25000 UNITS/250 ML IV (19:13)
--- NOTE | 2023-12-24 19:23 | PTCARENOTE ---
Pt taking tylenol with releif today for the right foot and toe pain. Pt oob independently in the room. Heparin infusing as ordered. Pt to have family meeting with Dr. Cee tomorrow.
[2023-12-24] MEDS: PERCOCET 5/325 1 TABLET PO (19:41)
[2023-12-24 23:35] VITALS: BP 135/70
[2023-12-24] MEDS: PERCOCET 5/325 2 TABLET PO (23:41)
[2023-12-25 04:22] VITALS: BP 121/66
[2023-12-25 04:28] VITALS: BMI 29.3
[2023-12-25] MEDS: TYLENOL 650 MG PO ×3 (04:33→13:36)
[2023-12-25 05:05] LABS: Hematocrit 38.5 % (37.0-47.0); Hemoglobin 13.3 g/dL (12.0-16.0); Mean Corp Hgb Conc. 34.5 g/dL (33.0-37.0); Mean Corpuscular Hgb 32.3 pg (27.0-31.0); Mean Corpuscular Volume 93.4 fL (81.0-99.0); Mean Platelet Volume 10.2 fL (7.4-10.4); Platelet Count 221 10^3/uL (130-400); Red Blood Cell Count 4.12 10^6/uL (4.20-5.40); White Blood Cell Count 8.9 10^3/uL (4.8-10.8)
[2023-12-25 05:08] LABS: APTT 91.6 Sec (23.4-35.0)
--- NOTE | 2023-12-25 05:11 | PTCARENOTE ---
Tele remains SR-sinus duyen. BP stable. Left groin site YESENIA, no hematoma noted. Patient c/o right foot pain, and this RN administered medications according to patients pain scale. See MAR for further details. Patient w/ intermittent relief when foot
is either hanging over the side of the bed or if she applies hand pressure on her foot. IV heparin gtt infusing at 12ml/hr. Patient aware of POC. Call chowdary within reach.
[2023-12-25 05:23] LABS: Blood Urea Nitrogen 12 mg/dl (7-17); Calcium 8.7 mg/dl (8.4-10.2); Carbon Dioxide 26 mmol/L (22-30); Chloride 110 mmol/L (98-107); Estimated Creatinine Clearance 82 ml/min; Glucose 95 mg/dl (70-99); Potassium 4.1 mmol/L (3.5-5.1); Sodium 138 mmol/L (135-145); eGFR > 60.00
[2023-12-25 07:06] VITALS: BP 116/63
--- NOTE | 2023-12-25 08:53 | W.PN.HOSP.TC ---
Today's Communication/Plan
-
For right lower extremity amputation tomorrow
Assessment / Plan
Assessment / Plan
HPI: 53-year-old female with a past medical history of hypercoagulability with prothrombin gene mutation, multiple left lower extremity DVTs, noncompliance with anticoagulation, and active cigarette nicotine dependency presents with pain, and
numbness of her right toes.� Her right third toe is necrotic.� She admits to stopping her Xarelto a few months ago because she is 'not good with medications'.
Critical limb ischemia right lower extremity
-Appreciate vascular surgery input, s/p RLE Arteriogram 10/22 showing 'occluded right profunda femoral artery, distal SFA occlusion, occluded popliteal artery and very limited tibial reconstitution of only the peroneal artery'
-Continue heparin drip, pain meds
-Vascular surgery recommending amputation, patient is now agreeable
-Plan for tomorrow
Anti-Thrombin III Deficiency
Medication noncompliance
-Patient previously on Xarelto but stopped taking several months ago
Tobacco Use Disorder
-Encourage smoking cessation, nicotine patch as needed
DVT prophylaxis�heparin drip
Full code
Physical Exam
General: No acute distress
HEENT: Normocephalic, Atraumatic, EOMI, MMM
Respiratory: Clear to Auscultation bilaterally
Cardiac: Normal S1/S2, Regular Rate and Rhythm
GI: Soft, Nontender, Nondistended, Normal Bowel Sounds
Extremities: No Clubbing, Cyanosis
Bilateral lower extremity edema noted
Erythema of right toes with necrotic right third toe noted
Anticipated Discharge: > 48 hours
Subjective/Interval History
-
Date of Service: December 25, 2023
No fever, no chest pain. Patient's right foot pain is tolerable.
Objective Data
-
Labs:
Laboratory Results
12/25/23
04:28
WBC 8.9
Hgb 13.3
Hct 38.5
Plt Count 221
APTT 91.6 H
Sodium 138
Potassium 4.1
Chloride 110 H
Carbon Dioxide 26
BUN 12
Creatinine 0.8
Glucose 95
Calcium 8.7
Vital Signs:
Vital Signs
Temp Pulse Resp BP Pulse Ox
98.1 F 62 20 121/66 95
12/25/23 07:02 12/25/23 04:22 12/25/23 07:02 12/25/23 04:22 12/25/23 07:02
I&O
12/24/23 12/25/23 12/26/23
06:59 06:59 06:59
Intake Total 1435 / 1435 624 / 624
Balance 1435 / 1435 624 / 624
[2023-12-25] MEDS: MIRALAX PO (09:12)
[2023-12-25 12:22] VITALS: BP 135/82
[2023-12-25] MEDS: HEPARIN 25000 UNITS/250 ML IV (14:28)
--- NOTE | 2023-12-25 15:20 | W.PN.UPDATE ---
Update Note
Progress Note Update
Pt seen at bedside this afternoon. Pt states she is attempting to avoid narcotic pain medications but her foot is very painful today. I encouraged her to take pain medicine at needed leading up to surgery. Pt states she feels more ready for
amputation at this time but would like a family meeting later today to officially make her decision with her families involvement. Pt is agreeable to amputation tomorrow. I will add her to our schedule and make her NPO after midnight tonight.
Discussed with Dr Cee
[2023-12-25 16:10] VITALS: BP 133/69
[2023-12-25] MEDS: PERCOCET 5/325 1 TABLET PO (17:58)
--- NOTE | 2023-12-25 18:26 | PTCARENOTE ---
Pt coping with her right leg pain with tylenol and percocet. Pt with a very positive attitude to planned surgery for 12/25. Telemetry shows sinus rhythm.
[2023-12-25 20:04] VITALS: BP 117/80
[2023-12-25 22:10] VITALS: BP 122/75
[2023-12-25] MEDS: PERCOCET 5/325 2 TABLET PO (22:12)
[2023-12-26] VITALS (13 sets, daily range): BP systolic 5–149; BP diastolic 69–99; BMI 29.1
[2023-12-26] MEDS: PERCOCET 5/325 1 TABLET PO ×2 (04:18→08:30)
[2023-12-26 04:24] LABS: Hematocrit 39.2 % (37.0-47.0); Hemoglobin 13.7 g/dL (12.0-16.0); Mean Corp Hgb Conc. 34.9 g/dL (33.0-37.0); Mean Corpuscular Volume 94.5 fL (81.0-99.0); Mean Platelet Volume 10.3 fL (7.4-10.4); Platelet Count 208 10^3/uL (130-400); Red Blood Cell Count 4.15 10^6/uL (4.20-5.40); Red Cell Dist. Width 12.9 % (11.5-14.5); White Blood Cell Count 6.8 10^3/uL (4.8-10.8)
[2023-12-26 04:48] LABS: INR 1.02; PT 13.4 Sec (11.4-14.6)
[2023-12-26 04:50] LABS: APTT 97.3 Sec (23.4-35.0)
[2023-12-26 04:55] LABS: Blood Urea Nitrogen 12 mg/dl (7-17); Calcium 8.8 mg/dl (8.4-10.2); Carbon Dioxide 23 mmol/L (22-30); Chloride 108 mmol/L (98-107); Estimated Creatinine Clearance 94 ml/min; Glucose 98 mg/dl (70-99); Potassium 4.6 mmol/L (3.5-5.1); Sodium 139 mmol/L (135-145); eGFR > 60.00
--- NOTE | 2023-12-26 05:22 | PTCARENOTE ---
Percocet effective in managing right foot pain overnight. Pt. woken early, complete bed bath given. Right leg hair clipped; extremity wiped with CHG wipes; gown and sheets changed; pt. NPO. Plan of care discussed with pt., understanding
verbalized.
--- NOTE | 2023-12-26 06:18 | PTCARENOTE ---
Heparin gtt shut off at 0600 (clarified with Magali Montes De Oca via TT last night that drip is still to be shut off at 0600; case is on the OR schedule for the afternoon).
--- NOTE | 2023-12-26 07:59 | W.PN.HOSP.TC ---
Today's Communication/Plan
-
For right BKA today
Assessment / Plan
Assessment / Plan
HPI: 53-year-old female with a past medical history of hypercoagulability with prothrombin gene mutation, multiple left lower extremity DVTs, noncompliance with anticoagulation, and active cigarette nicotine dependency presents with pain, and
numbness of her right toes.� Her right third toe is necrotic.� She admits to stopping her Xarelto a few months ago because she is 'not good with medications'.
Critical limb ischemia right lower extremity
-Appreciate vascular surgery input, s/p RLE Arteriogram 10/22 showing 'occluded right profunda femoral artery, distal SFA occlusion, occluded popliteal artery and very limited tibial reconstitution of only the peroneal artery'
-Hold heparin drip for surg, continue pain meds
-For right BKA by vascular surgery today
Anti-Thrombin III Deficiency
Medication noncompliance
-Patient previously on Xarelto but stopped taking several months ago
Tobacco Use Disorder
-Encourage smoking cessation, nicotine patch as needed
DVT prophylaxis�SCDs
Full code
Physical Exam
General: No acute distress
HEENT: Normocephalic, Atraumatic, EOMI, MMM
Respiratory: Clear to Auscultation bilaterally
Cardiac: Normal S1/S2, Regular Rate and Rhythm
GI: Soft, Nontender, Nondistended, Normal Bowel Sounds
Extremities: No Clubbing, Cyanosis
Bilateral lower extremity edema noted
Erythema of right toes with necrotic right third toe noted
Anticipated Discharge: > 48 hours
Subjective/Interval History
-
Date of Service: December 26, 2023
No fever, patient is awaiting her amputation.
Objective Data
-
Labs:
Laboratory Results
12/26/23
04:10
WBC 6.8
Hgb 13.7
Hct 39.2
Plt Count 208
PT 13.4
INR 1.02
APTT 97.3 H
Sodium 139
Potassium 4.6
Chloride 108 H
Carbon Dioxide 23
BUN 12
Creatinine 0.7
Glucose 98
Calcium 8.8
Vital Signs:
Vital Signs
Temp Pulse Resp BP Pulse Ox
98.4 F 50 16 130/70 95
12/26/23 04:00 12/26/23 02:00 12/26/23 04:00 12/26/23 04:00 12/26/23 04:00
I&O
12/25/23 12/26/23 12/27/23
06:59 06:59 06:59
Intake Total 624 / 624 800 / 800
Balance 624 / 624 800 / 800
[2023-12-26] MEDS: BACTROBAN 2% OINTMENT 1 APPLIC NASAL (08:33)
[2023-12-26] MEDS: MIRALAX PO (08:33)
--- NOTE | 2023-12-26 11:08 | CM ---
CM following for DC planning needs.
Reviewed that patient will undergo Vascular Sx today.
Initial assessment reviewed. Pt. resides w/ son in a private, 2 story home w/ 1st floor set up.
DC plan uncertain and will depend on status post Vascular Sx.
Will follow closely.
[2023-12-26] MEDS: PERIDEX 0.12% ORAL RINSE 15 ML PO (14:30)
--- NOTE | 2023-12-26 15:03 | W.PN.UPDATE ---
Update Note
Progress Note Update
I had a long telephone conversation with Susan along with her brother and [id number]. I explained the current situation to them. Options were discussed with them which included a high risk right lower extremity bypass to attempt to
revascularize the foot however I told them I was apprehensive about this approach due to the poor tibial outflow, degree and chronicity of ischemia in her foot and risks of bypass thrombosis as well as bleeding due to her underlying hypercoagulable
state. Other options presented to her included right lower extremity amputation, both above and below the knee. I discussed the advantages and disadvantages of both approaches. The technical aspects of each of these procedures were discussed with
her and her family in detail. Operative risks were discussed including but not limited to heart attack, stroke, bleeding, infection, swelling and poor wound healing. I also explained that if her amputation did not heal she may need additional
surgery, debridement and possibly a more proximal amputation.
She is very interested in preserving her knee joint. She does have good rehab potential. We decided that we will attempt a below the knee amputation and she is fully aware that given her arterial occlusive disease this may not heal.
Homer Cee III, MD
[facility]
[phone] (wpih)
--- NOTE | 2023-12-26 15:06 | PTCARENOTE ---
Pt visiting with family today. Percocet given for pain control . Pre op CHG wipes completed. Report given to vascular team. Pt taken to OR in her bed at 15:00.
[2023-12-26] MEDS: ANCEF 10 IV (15:11)
--- NOTE | 2023-12-26 16:10 | OR.RPT ---
Operative Report
Operative Report
Date of Operation: 12/26/2023
Pre Op Diagnosis: Chronic critical limb threatening ischemia with no meaningful options for revascularization
Post Op Diagnosis: Chronic critical limb threatening ischemia with no meaningful options for revascularization
Procedure: Right lower extremity amputation, below the knee for
Surgeon: Homer Cee III, MD
Second Shift Supervisor: GRAHAM Davis (assisted with all portions of the procedure including incision, dissection, amputation and closure)
Anesthesia: General
Complications: None
Estimated Blood Loss: Less than 20 cc
History and Indications for Procedure: 53-year-old female with chronic critical limb threatening ischemia of her right lower extremity with no meaningful options for revascularization. She decided to proceed with below the knee amputation.
Procedure in Detail: Susan Nguyen was correctly identified and placed supine on the operating table. After adequate induction of anesthesia the right leg was prepped and draped in the usual sterile fashion. A timeout procedure was performed
with the nursing and anesthesia staff confirming the patient�s identity as well as the nature and laterality of the procedure. A transverse incision was made approximately 1 hands-breadth below the tibial tuberosity and carried medially and
laterally to the chcf points on the calf. The incision was then turned along the long axis of the calf and carried down towards the ankle to create the posterior flap. Electrocautery was used on the subcutaneous tissue and muscle of the anterior
and lateral tissue. The anterior tibial artery and vein were identified and then ligated and divided between ties. The tibia and fibula were each circumferentially exposed. A periosteal elevator was used on each to elevate the periosteum more
proximally. The tibia was then divided with a saw. The anterior surface was beveled and smoothed with the saw and a rasp. The fibula was then divided more proximally than the tibia and all edges were smoothed with the assistance of a rasp. The
amputation was then completed using sharp dissection and electrocautery along the posterior flap. The leg was then passed off to the back table to be sent to pathology. Hemostasis was achieved along the posterior flap using a combination of
electrocautery and interrupted silk suture ligatures. Once hemostasis was achieved the wound was irrigated with warm saline solution. A Jason drain was brought out through a separate stab incision at the skin and secured in place with a Nylon
suture. This was left deep within the wound adjacent to the bone margins. The wound was then closed in multiple layers. Sterile dressings were applied.
The patient tolerated the procedure well and was taken to the PACU in stable condition.
Attestation: I was present and responsible for the entire procedure
Signed:
Homer Cee III, MD
[facility]
[phone] (cell)
[2023-12-26] MEDS: DILAUDID 0.5 MG IV ×4 (16:25→16:49)
[2023-12-26] MEDS: DILAUDID PCA 30 IV (16:41)
--- NOTE | 2023-12-26 17:56 | TRANSFER ---
Patient transferred to room 2000, patient transferred to bed with 3 assist. SOCIAL MEDIA STRATEGIST settings and wound checked at bedside with VENKATESH Rubi. Irene Ventura RN BSN.
[2023-12-26 17:57] LABS: Hematocrit 42.7 % (37.0-47.0); Hemoglobin 14.5 g/dL (12.0-16.0); Mean Corpuscular Hgb 32.2 pg (27.0-31.0); Mean Corpuscular Volume 94.7 fL (81.0-99.0); Mean Platelet Volume 9.9 fL (7.4-10.4); Platelet Count 229 10^3/uL (130-400); Red Blood Cell Count 4.51 10^6/uL (4.20-5.40); Red Cell Dist. Width 12.9 % (11.5-14.5); White Blood Cell Count 8.9 10^3/uL (4.8-10.8)
[2023-12-27 03:00] VITALS: BP 124/64
[2023-12-27 07:00] VITALS: BP 137/63
[2023-12-27 07:09] LABS: Hematocrit 40.3 % (37.0-47.0); Hemoglobin 13.5 g/dL (12.0-16.0); INR 0.98; Mean Corp Hgb Conc. 33.5 g/dL (33.0-37.0); Mean Corpuscular Hgb 32.6 pg (27.0-31.0); Mean Corpuscular Volume 97.3 fL (81.0-99.0); Mean Platelet Volume 10.6 fL (7.4-10.4); PT 12.8 Sec (11.4-14.6); Platelet Count 230 10^3/uL (130-400); Red Blood Cell Count 4.14 10^6/uL (4.20-5.40); Red Cell Dist. Width 12.9 % (11.5-14.5); White Blood Cell Count 9.5 10^3/uL (4.8-10.8)
[2023-12-27 07:22] LABS: Blood Urea Nitrogen 8 mg/dl (7-17); Calcium 8.4 mg/dl (8.4-10.2); Carbon Dioxide 24 mmol/L (22-30); Chloride 109 mmol/L (98-107); Estimated Creatinine Clearance 93 ml/min; Glucose 127 mg/dl (70-99); Sodium 138 mmol/L (135-145); eGFR > 60.00
--- NOTE | 2023-12-27 08:08 | W.PN.VS ---
Today's Communication / Plan
-
Plan:
Dressing down tomorrow
Keep drain
OK for anticoagulation
PT/OT
avoid propping stump on pillow - keep knee straight
Assessment/Plan
-
Assessment: 53-year-old female with peripheral artery disease/critical limb threatening ischemia POD #1 R BKA
Plan:
Dressing down tomorrow
Keep drain
OK for anticoagulation
PT/OT
avoid propping stump on pillow - keep knee straight
Subjective Data
-
Date of Service: December 27, 2023
POD 1 R BKA
Having stump pain
Drain 5cc sang
Objective Data
-
Vital Signs
Temp Pulse Resp BP Pulse Ox
98.4 F 65 18 124/64 97
12/27/23 03:00 12/27/23 03:00 12/27/23 07:01 12/27/23 03:00 12/27/23 07:01
Intake and Output
12/26/23 12/27/23 12/28/23
06:59 06:59 06:59
Intake Total 800 / 800 1580 / 1580
Output Total 1510 / 1510
Balance 800 / 800 70 / 70
Intake:
Oral fluids 800 / 800 990 / 990
IV fluids (Total) 590 / 590
D5/0.45%NaCl 1,000 ml @ 40 mls/ 10 / 10
hr IV .Q24H PRN Rx#:[id number]
NS 100 / 100
Output:
Drain Output (Total) 5 / 5
Right Leg Ruben-Reynolds 5 / 5
Urine, Cee 1505 / 1505
Other:
Number of approximated MODERATE 4 1
amounts of urine
Lab Results
12/27/23 05:06
12/27/23 05:06
Calcium 8.4 mg/dl (8.4-10.2) 12/27/23 05:06
Magnesium 2.1 mg/dl (1.6-2.3) 12/24/23 03:09
Total Bilirubin 1.0 mg/dl (0.2-1.3) 12/22/23 16:51
AST 27 U/L (14-36) 12/22/23 16:51
ALT 20 U/L (0-35) 12/22/23 16:51
Alkaline Phosphatase 118 U/L (38-126) 12/22/23 16:51
Total Protein 7.7 g/dl (6.3-8.2) 12/22/23 16:51
Albumin 4.2 g/dl (3.5-5.0) 12/22/23 16:51
Physical Exam
-
Dressing dry
Drain serosang
good ROM R knee
--- NOTE | 2023-12-27 08:17 | W.PN.HOSP.TC ---
Today's Communication/Plan
-
see bold
Assessment / Plan
Assessment / Plan
HPI: 53-year-old female with a past medical history of hypercoagulability with prothrombin gene mutation, multiple left lower extremity DVTs, noncompliance with anticoagulation, and active cigarette nicotine dependency presents with pain, and
numbness of her right toes.� Her right third toe is necrotic.� She admits to stopping her Xarelto a few months ago because she is 'not good with medications'.
Critical limb ischemia right lower extremity
-Appreciate vascular surgery input, s/p RLE Arteriogram 10/22 showing 'occluded right profunda femoral artery, distal SFA occlusion, occluded popliteal artery and very limited tibial reconstitution of only the peroneal artery'
-S/p right BKA by vascular surgery 12/26
-Pain control, PT/OT, heparin drip, bowel regimen
Anti-Thrombin III Deficiency
Medication noncompliance
-Patient previously on Xarelto but stopped taking several months ago
Tobacco Use Disorder
-Encourage smoking cessation, nicotine patch as needed
DVT prophylaxis�SCDs
Full code
Physical Exam
General: No acute distress
HEENT: Normocephalic, Atraumatic, EOMI, MMM
Respiratory: Clear to Auscultation bilaterally
Cardiac: Normal S1/S2, Regular Rate and Rhythm
GI: Soft, Nontender, Nondistended, Normal Bowel Sounds
Extremities: No Clubbing, Cyanosis
Bilateral lower extremity edema noted
Right BKA site dressed
Anticipated Discharge: 24 - 48 hours
Subjective/Interval History
-
Date of Service: December 27, 2023
Pain controlled. No BM. No fever. No CP/SOB/palp.
Objective Data
-
Labs:
Laboratory Results
12/27/23
05:06
WBC 9.5
Hgb 13.5
Hct 40.3
Plt Count 230
PT 12.8
INR 0.98
APTT 26.0
Sodium 138
Potassium 4.0
Chloride 109 H
Carbon Dioxide 24
BUN 8
Creatinine 0.7
Glucose 127 H
Calcium 8.4
Vital Signs:
Vital Signs
Temp Pulse Resp BP Pulse Ox
98.4 F 65 18 124/64 97
12/27/23 03:00 12/27/23 03:00 12/27/23 07:01 12/27/23 03:00 12/27/23 07:01
I&O
12/26/23 12/27/23 12/28/23
06:59 06:59 06:59
Intake Total 800 / 800 1580 / 1580
Output Total 1510 / 1510
Balance 800 / 800 70 / 70
[2023-12-27] MEDS: TYLENOL 650 MG PO ×3 (08:37→18:08)
[2023-12-27] MEDS: MIRALAX 17 GRAMS PO (08:38)
[2023-12-27 11:00] VITALS: BP 126/58
[2023-12-27] MEDS: SENOKOT-S 2 TABLET PO (14:28)
[2023-12-27 15:00] VITALS: BP 116/69
[2023-12-27 15:47] VITALS: BP 116/69; PULSE 70; O2SAT 96
[2023-12-27] MEDS: D5/0.45%NACL 1000 IV (19:41)
[2023-12-27] MEDS: SENOKOT-S PO (19:41)
[2023-12-27] MEDS: MIRALAX PO (19:41)
[2023-12-27 23:00] VITALS: BP 130/67
[2023-12-28 03:05] VITALS: BP 139/76
[2023-12-28 06:00] LABS: Hematocrit 39.5 % (37.0-47.0); Hemoglobin 13.3 g/dL (12.0-16.0); Mean Corp Hgb Conc. 33.7 g/dL (33.0-37.0); Mean Corpuscular Hgb 32.8 pg (27.0-31.0); Mean Corpuscular Volume 97.5 fL (81.0-99.0); Mean Platelet Volume 10.3 fL (7.4-10.4); Platelet Count 183 10^3/uL (130-400); Red Blood Cell Count 4.05 10^6/uL (4.20-5.40); White Blood Cell Count 9.9 10^3/uL (4.8-10.8)
[2023-12-28 06:24] LABS: Blood Urea Nitrogen 8 mg/dl (7-17); Calcium 8.5 mg/dl (8.4-10.2); Carbon Dioxide 23 mmol/L (22-30); Chloride 110 mmol/L (98-107); Estimated Creatinine Clearance 109 ml/min; Glucose 106 mg/dl (70-99); Magnesium 2.1 mg/dl (1.6-2.3); Potassium 4.2 mmol/L (3.5-5.1); Sodium 137 mmol/L (135-145); eGFR > 60.00
[2023-12-28 07:00] VITALS: BP 130/70
[2023-12-28] MEDS: MIRALAX 17 GRAMS PO (07:54)
[2023-12-28] MEDS: TYLENOL 650 MG PO ×3 (07:54→17:48)
--- NOTE | 2023-12-28 08:05 | W.PN.VS ---
Today's Communication / Plan
-
drain out tomorrow
PT/OT
avoid propping stump on pillow - keep knee straight
Assessment/Plan
-
Assessment: 53-year-old female with peripheral artery disease/critical limb threatening ischemia POD #2 R BKA
Plan:
drain out tomorrow
PT/OT
avoid propping stump on pillow - keep knee straight
Subjective Data
-
Date of Service: December 28, 2023
POD 2 R BKA
pain poorly controlled
keeping knee straight
minimal from drain
Objective Data
-
Vital Signs
Temp Pulse Resp BP Pulse Ox
98.3 F 71 18 130/70 96
12/28/23 07:00 12/28/23 07:00 12/28/23 07:00 12/28/23 07:00 12/28/23 07:00
Intake and Output
12/27/23 12/28/23 12/29/23
06:59 06:59 06:59
Intake Total 1580 / 1580 3080 / 3080
Output Total 1510 / 1510 3865 / 3865
Balance 70 / 70 -785 / -785
Intake:
Oral fluids 990 / 990 2520 / 2520
IV fluids (Total) 590 / 590 560 / 560
D5/0.45%NaCl 1,000 ml @ 40 mls/ 10 / 10
hr IV .Q24H PRN Rx#:[id number]
NS 100 / 100
Output:
Drain Output (Total)
Right Leg Ruben-Reynolds
Urine, Cee 1505 / 1505 3730 / 3730
Urine, Voided 120 / 120
Other:
Number of approximated MODERATE 1
amounts of urine
Lab Results
12/28/23 04:52
12/28/23 04:52
Calcium 8.5 mg/dl (8.4-10.2) 12/28/23 04:52
Magnesium 2.1 mg/dl (1.6-2.3) 12/28/23 04:52
Total Bilirubin 1.0 mg/dl (0.2-1.3) 12/22/23 16:51
AST 27 U/L (14-36) 12/22/23 16:51
ALT 20 U/L (0-35) 12/22/23 16:51
Alkaline Phosphatase 118 U/L (38-126) 12/22/23 16:51
Total Protein 7.7 g/dl (6.3-8.2) 12/22/23 16:51
Albumin 4.2 g/dl (3.5-5.0) 12/22/23 16:51
Physical Exam
-
dressing taken down
incision clean, dry, intact
--- NOTE | 2023-12-28 08:44 | W.PN.HOSP.TC ---
Today's Communication/Plan
-
see bold
Assessment / Plan
Assessment / Plan
HPI: 53-year-old female with a past medical history of hypercoagulability with prothrombin gene mutation, multiple left lower extremity DVTs, noncompliance with anticoagulation, and active cigarette nicotine dependency presents with pain, and
numbness of her right toes.� Her right third toe is necrotic.� She admits to stopping her Xarelto a few months ago because she is 'not good with medications'.
Critical limb ischemia right lower extremity
-Appreciate vascular surgery input, s/p RLE Arteriogram 10/22 showing 'occluded right profunda femoral artery, distal SFA occlusion, occluded popliteal artery and very limited tibial reconstitution of only the peroneal artery'
-S/p right BKA by vascular surgery 12/26
-Pain control, PT/OT, heparin drip
Constipation
-No bowel movement since admission, 6 days ago
-Continue MiraLAX twice a day, senna S twice a day
-Magnesium citrate 300 mL x 1
Anti-Thrombin III Deficiency
Medication noncompliance
-Patient previously on Xarelto but stopped taking several months ago
Tobacco Use Disorder
-Encourage smoking cessation, nicotine patch as needed
DVT prophylaxis�SCDs
Full code
Physical Exam
General: No acute distress
HEENT: Normocephalic, Atraumatic, EOMI, MMM
Respiratory: Clear to Auscultation bilaterally
Cardiac: Normal S1/S2, Regular Rate and Rhythm
GI: Soft, Nontender, Nondistended, Normal Bowel Sounds
Extremities: No Clubbing, Cyanosis
Bilateral lower extremity edema noted
Right BKA site dressed
Anticipated Discharge: 24 - 48 hours
Subjective/Interval History
-
Date of Service: December 28, 2023
Patient reports her pain is tolerable. Denies fever, chest pain, shortness of breath. Still has not had a bowel movement since admission.
Objective Data
-
Labs:
Laboratory Results
12/28/23
04:52
WBC 9.9
Hgb 13.3
Hct 39.5
Plt Count 183 D
Sodium 137
Potassium 4.2
Chloride 110 H
Carbon Dioxide 23
BUN 8
Creatinine 0.6
Glucose 106 H
Calcium 8.5
Vital Signs:
Vital Signs
Temp Pulse Resp BP Pulse Ox
98.3 F 71 16 130/70 96
12/28/23 07:00 12/28/23 07:00 12/28/23 08:00 12/28/23 07:00 12/28/23 08:00
I&O
12/27/23 12/28/23 12/29/23
06:59 06:59 06:59
Intake Total 1580 / 1580 3080 / 3080
Output Total 1510 / 1510 3865 / 3865
Balance 70 / 70 -785 / -785
[2023-12-28] MEDS: SENOKOT-S 2 TABLET PO ×2 (10:18→19:48)
[2023-12-28 11:44] VITALS: BP 147/77; PULSE 74
[2023-12-28 11:48] VITALS: BP 147/77
[2023-12-28] MEDS: CITROMA 300 ML PO (13:17)
[2023-12-28 15:00] VITALS: BP 120/77
[2023-12-28] MEDS: DILAUDID PCA 30 IV (16:37)
[2023-12-28] MEDS: D5/0.45%NACL 1000 IV (17:48)
[2023-12-28] MEDS: MIRALAX PO (19:51)
[2023-12-28] MEDS: MELATONIN 5 MG PO (20:47)
[2023-12-28 23:36] VITALS: BMI 28.3
[2023-12-28 23:54] LABS: Hematocrit 38.4 % (37.0-47.0); Hemoglobin 13.4 g/dL (12.0-16.0); Mean Corp Hgb Conc. 34.9 g/dL (33.0-37.0); Mean Corpuscular Hgb 32.6 pg (27.0-31.0); Mean Corpuscular Volume 93.4 fL (81.0-99.0); Platelet Count 181 10^3/uL (130-400); Red Blood Cell Count 4.11 10^6/uL (4.20-5.40); Red Cell Dist. Width 12.8 % (11.5-14.5); White Blood Cell Count 8.8 10^3/uL (4.8-10.8)
[2023-12-28] MEDS: HEPARIN 25000 UNITS/250 ML IV (23:55)
[2023-12-28 23:57] VITALS: BP 123/69
[2023-12-29 00:07] LABS: APTT 29.1 Sec (23.4-35.0)
[2023-12-29] MEDS: HEPARIN 6100 UNITS IV ×2 (00:10→16:17)
--- NOTE | 2023-12-29 00:29 | PTCARENOTE ---
During chart checks pt. found not to be on anticoagulants s/p R BKA on 12/26/23. Pt. previously on heparin gtt prior. Vascular reception specialist contacted and confirmed pt. needed to be on heparin gtt per DVT tx protocol. Heparin reordered per house ROLLER OPERATOR and
restarted at 1400 units/hr, rate confirmed with house ROLLER OPERATOR. Pt. rebolused with 6100 units heparin IV per initial PTT, 29.1, and rebolus orders on JAN. Next PTT ordered for 0600. Will continue to monitor.
[2023-12-29 05:59] VITALS: BMI 28.2
[2023-12-29 06:23] LABS: Hematocrit 39.8 % (37.0-47.0); Hemoglobin 13.9 g/dL (12.0-16.0); Mean Corp Hgb Conc. 34.9 g/dL (33.0-37.0); Mean Corpuscular Hgb 33.8 pg (27.0-31.0); Mean Corpuscular Volume 96.8 fL (81.0-99.0); Mean Platelet Volume 10.6 fL (7.4-10.4); Platelet Count 188 10^3/uL (130-400); Red Blood Cell Count 4.11 10^6/uL (4.20-5.40); Red Cell Dist. Width 12.8 % (11.5-14.5); White Blood Cell Count 9.1 10^3/uL (4.8-10.8)
[2023-12-29 06:49] LABS: APTT > 200 Sec (23.4-35.0)
[2023-12-29 07:58] VITALS: BP 126/72
[2023-12-29 08:01] LABS: Blood Urea Nitrogen 8 mg/dl (7-17); Calcium 8.7 mg/dl (8.4-10.2); Carbon Dioxide 24 mmol/L (22-30); Chloride 109 mmol/L (98-107); Estimated Creatinine Clearance 107 ml/min; Glucose 123 mg/dl (70-99); Potassium 4.1 mmol/L (3.5-5.1); Sodium 137 mmol/L (135-145); eGFR > 60.00
[2023-12-29] MEDS: TYLENOL 650 MG PO ×2 (08:36→15:30)
[2023-12-29] MEDS: MIRALAX PO ×2 (08:37→20:42)
[2023-12-29] MEDS: SENOKOT-S PO ×2 (08:37→20:42)
[2023-12-29 10:30] VITALS: BP 119/55; PULSE 66; O2SAT 97
--- NOTE | 2023-12-29 10:39 | W.PN.HOSP.TC ---
Addendum entered and electronically signed by Negro Young MD 12/29/23 17:10:
Patient seen and examined
Discussed with resident
Impression/plan:
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
Status post right lower extremity angiogram 10/22 with occluded right profundofemoral artery distal SFA occlusion occluded popliteal artery and very limited tibial reconstitution.
Status post right BKA 12/26.
Continue IV heparin with later transition to oral anticoagulation with Xarelto
Wean off OPERATING ROOM SCHEDULER to oral regimen.
Physical therapy assessment with discharge planning
Original Note:
Today's Communication/Plan
-
PT/OT
Continue oral Pain control
dC Drain tomorrow
Assessment / Plan
Assessment / Plan
Assessment/Plan
Critical limb ischemia right lower extremity
-Appreciate vascular surgery input, s/p RLE Arteriogram 10/22 showing 'occluded right profunda femoral artery, distal SFA occlusion, occluded popliteal artery and very limited tibial reconstitution of only the peroneal artery'
-S/p right BKA by vascular surgery 12/26
-Pain control, PT/OT, heparin drip
Constipation
-No bowel movement since admission, 6 days ago
-Continue MiraLAX twice a day, senna S twice a day
-Magnesium citrate 300 mL x 1
Anti-Thrombin III Deficiency
Medication noncompliance
-Patient previously on Xarelto but stopped taking several months ago
Tobacco Use Disorder
-Encourage smoking cessation, nicotine patch as needed
DVT prophylaxis�SCDs
Full code
Anticipated Discharge: 24 - 48 hours
Subjective/Interval History
-
Date of Service: December 29, 2023
Objective Data
-
Labs:
Laboratory Results
12/28/23 12/29/23 12/29/23
23:48 05:46 13:15
WBC 8.8 9.1
Hgb 13.4 13.9
Hct 38.4 39.8
Plt Count 181 188
APTT 29.1 > 200 H* Pending
Sodium 137
Potassium 4.1
Chloride 109 H
Carbon Dioxide 24
BUN 8
Creatinine 0.6
Glucose 123 H
Calcium 8.7
Vital Signs:
Vital Signs
Temp Pulse Resp BP Pulse Ox
98 F 62 18 126/72 99
12/29/23 07:58 12/29/23 07:58 12/29/23 07:58 12/29/23 07:58 12/29/23 07:58
I&O
12/28/23 12/29/23 12/30/23
06:59 06:59 06:59
Intake Total 3080 / 3080 3198 / 3198
Output Total 3865 / 3865 355 / 355
Balance -785 / -785 2843 / 2843
Physical Exam
-
General: Well Developed, Well Nourished and No Apparent Distress
HEENT: Normocephalic and Atraumatic
Respiratory: Clear to Auscultation; Negative Wheezes or Rales
Cardiac: Regular Rhythm and S1/S2
GI: Soft, Nontender and Nondistended
Musculoskeletal: No Clubbing and No Cyanosis
--- NOTE | 2023-12-29 13:08 | CON.MD ---
Documented by User: Ary Macias PA-C 12/29/23 17:12
Consultation - Medical
-
Referring Provider:
Chief Complaint: Ambulatory dysfunction s/p right below-knee amputation
History of Present Illness: 53-year-old female with a past medical history of hypercoagulability with prothrombin gene mutation (Anti-Thrombin III Deficiency, multiple left lower extremity DVTs, noncompliance with anticoagulation, and active
cigarette nicotine dependency presents with pain, and numbness of her right toes.� Her right third toe is necrotic.� She admits to stopping her Xarelto a few months ago because she is 'not good with medications'. Critical limb ischemia right lower
extremity s/p RLE Arteriogram 10/22 showing�'occluded right profunda femoral artery, distal SFA occlusion, occluded popliteal artery and very limited tibial reconstitution of only the peroneal artery.
Past Medical History: Anti-Thrombin III Deficiency,multiple left lower extremity DVTs
Procedure History: S/p right BKA by vascular surgery 12/26
Family History:
Social History:
Functional Level Premorbidly: Independent with all activities
Functional Level Currently: Patient hopped with rolling walker 25 feet with min assist, stand to sit transfer min assist, stand/pivot/sit�min assist, supine to sit mobility�mod I, eating, grooming�set up, toileting�mod assist, lower extremity
self-care supervision
Tobacco: smoker- on admission
Alcohol: Denies
Drug use: Denies
Lives with: son
24-hour assistance available:
Number of floors: 2
# steps to enter: 1
# steps to second floor:
Potential First floor set up: Bedroom on the first floor
Driving: yes
Occupation: Works from home
�
Allergies:
Allergy/AdvReac Type Severity Reaction Status Date / Time
No Known Allergies Allergy Verified 12/22/23 15:05
Review of Systems:
Constitutional: (x) Normal _
Eye: (x) Normal _
Ear/Nose/Throat: (x) Normal _
Respiratory: (x) smoker
Cardiovascular: (x) Normal _
Gastrointestinal: (x) constipation
Genitourinary: (x) Normal _
Musculoskeletal: (x) right BKA
Integumentary: (x) Normal _
Neurologic: (x) Normal _
Psychiatric: (x) Normal _
Endocrine: (x) Normal _
Hematologic/Lymphatic:Anti-Thrombin III Deficiency , DVTs
Allergic/Immunologic: (x) Normal _
Medications:
Active Current Visit Medication List
Category Date Time Status
0.9% Sodium Chloride [Nss (Preservative Free)] Med 12/26/23 16:11 Active
0.9 ml IV Q2MPRN PRN
Acetaminophen [Tylenol] Med 12/22/23 20:34 Active
650 mg PO Q4HPRN PRN
Bisacodyl [Dulcolax] Med 12/23/23 15:09 Active
10 mg RECTAL DAILYPRN PRN
Docusate W/Senna [Senokot-S] Med 12/27/23 13:20 Active
2 tablet PO BID
Flush (0.9% Sodium Chloride) [Flush (Nss)] Med 12/22/23 21:00 Active
See Dose Instructions IV PER PROTOCOL
HYDROmorphone EDUCATION COURSES SALES REPRESENTATIVE 1 MG/ML [Dilaudid EDUCATION COURSES SALES REPRESENTATIVE] Med 12/26/23 16:15 Active
30 mg in 30 ml IV PER PROTOCOL
Heparin Med 12/28/23 23:34 Active
3,100 units IV PRN PRN
Heparin Med 12/28/23 23:33 Active
6,100 units IV PRN PRN
Heparin 88447 Units/250 ml Med 12/28/23 23:30 Active
25,000 units in 250 ml IV PER PROTOCOL
Melatonin Med 12/28/23 22:00 Active
5 mg PO HS
Naloxone [Narcan] Med 12/26/23 16:11 Active
0.04 mg IV Q2MPRN PRN
Ondansetron Injectable [Zofran] Med 12/23/23 14:52 Active
4 mg IV Q6HPRN PRN
Polyethylene Glycol Powder [Miralax] Med 12/27/23 20:00 Active
17 grams PO BID
Vitals:
Temp Pulse Resp BP Pulse Ox
98 F 62 18 126/72 98
12/29/23 07:58 12/29/23 07:58 12/29/23 12:00 12/29/23 07:58 12/29/23 12:00
Height 5 ft 4 in
Actual Weight 74.571 kg
Body Mass Index (BMI) 28.2
Physical Exam:
General Appearance/Observation: Well-developed, well-nourished individual in no apparent distress.
Pain/Comfort Assessment: right stump- controlled with pain med
Mood/Affect: Appropriate, pleasant
Integumentary/Operative Site:
�� Pressure Ulcer Evaluation: bilateral heel pads noted.
��
�� Other Type of Wound: right stump dressed. LEXI drain noted
��
Eyes: Conjunctiva/Lids: normal ��� Pupils: pupils equal round and reactive to light and Accommodation
Ears/Nose/Throat: oral mucosa moist,� throat clear.������������ Lips/Teeth/Gums: normal
Neck: No muscle spasm or tenderness
Cardiovascular: Heart: regular, no murmur
Pulses: dorsalis pedis 2+ left,
Respiratory: Respiratory Effort/Chest Expansion: normal ������ Auscultation: Clear to auscultation bilaterally
Gastrointestinal: abdomen not tender, no distension, Hyperactive abdominal bowel sounds
Genitourinary: Cee
Extremities: Edema: none Cyanosis: None Trophic changes: None
Neurology Exam:
Orientation: Alert, Oriented to self, Time, Place
Memory: Intact for immediate medical concerns
Higher cortical function
Repetition: Intact
Comprehension: Intact
Two step command: Intact
Naming: Intact
Cranial Nerves:
�� CNII: Pupillary light reflex: Intact��� Visual Field: Intact
�� CN III, IV, : Extraocular muscles: Intact
�� CN V: Facial Sensation at Forehead: Intact, Maxilla: Intact, Mandible: Intact
�� CN VII: Facial movement: Symmetric
�� CN VIII: Hearing: Normal
�� CN IX/X: Speech & swallow: Normal, Position of Uvula: Midline
�� CN XI: Shoulder shrug: Symmetric
�� CN XII: Tongue protrusion: Midline
Sensory:
�� Light touch: Intact in bilateral upper and lower extremities
��
Reflexes:
�� Biceps: 2+ bilaterally
�� Brachioradialis: 2+ bilaterally
�� Triceps: 2+ bilaterally
�� Patellar: 2+ left, deferred right side
�� Achilles: 2+ left,
� Irish: Negative bilaterally
Cerebellar: Dysmetria/Ataxia: None
Musculoskeletal:
Motor: (Manual muscle scale 0-5)
Muscle SA EF WE EE FF FA HF KE DF EHL PF
Right� 5 5 5 5 5 5 2 2 - - -
Left 5 5 5 5 5 5 5 5 5 5 5
Tone: Normal in all extremities
Range of Motion: Passively within normal limits in all extremities
Lab Results
Labs
WBC 9.1 10^3/uL (4.8-10.8) 12/29/23 05:46
RBC 4.11 10^6/uL (4.20-5.40) L 12/29/23 05:46
Hgb 13.9 g/dL (12.0-16.0) 12/29/23 05:46
Hct 39.8 % (37.0-47.0) 12/29/23 05:46
MCV 96.8 fL (81.0-99.0) 12/29/23 05:46
MCH 33.8 pg (27.0-31.0) H 12/29/23 05:46
MCHC 34.9 g/dL (33.0-37.0) 12/29/23 05:46
RDW 12.8 % (11.5-14.5) 12/29/23 05:46
Plt Count 188 10^3/uL (130-400) 12/29/23 05:46
MPV 10.6 fL (7.4-10.4) H 12/29/23 05:46
Abs Immat Gran (auto) 0.0 10^3/uL (0-0.05) 12/22/23 16:51
Absolute Neuts (auto) 7.4 10^3/uL (1.4-6.5) H 12/22/23 16:51
Absolute Lymphs (auto) 1.6 10^3/uL (1.2-3.4) 12/22/23 16:51
Absolute Monos (auto) 0.8 10^3/uL (0.1-0.6) H 12/22/23 16:51
Absolute Eos (auto) 0.0 10^3/uL (0-0.7) 12/22/23 16:51
Absolute Basos (auto) 0.0 10^3/uL (0-0.2) 12/22/23 16:51
Immature Gran % 0.2 % (0-0.5) 12/22/23 16:51
Neutrophils % 75.2 % (42.2-75.2) 12/22/23 16:51
Lymphocytes % 16.5 % (20.5-51.1) L 12/22/23 16:51
Monocytes % 7.7 % (1.7-9.3) 12/22/23 16:51
Eosinophils % 0.1 % (0-6) 12/22/23 16:51
Basophils % 0.3 % (0-2) 12/22/23 16:51
Nucleated RBC % 0 % 12/22/23 16:51
PT 12.8 Sec (11.4-14.6) 12/27/23 05:06
INR 0.98 12/27/23 05:06
APTT Cancelled 12/29/23 13:15
Sodium 137 mmol/L (135-145) 12/29/23 05:46
Potassium 4.1 mmol/L (3.5-5.1) 12/29/23 05:46
Chloride 109 mmol/L (98-107) H 12/29/23 05:46
Carbon Dioxide 24 mmol/L (22-30) 12/29/23 05:46
BUN 8 mg/dl (7-17) 12/29/23 05:46
Creatinine 0.6 mg/dL (0.6-1.0) 12/29/23 05:46
Estimated Creat Clear 107 ml/min 12/29/23 05:46
eGFR > 60.00 12/29/23 05:46
Glucose 123 mg/dl (70-99) H 12/29/23 05:46
Calcium 8.7 mg/dl (8.4-10.2) 12/29/23 05:46
Magnesium 2.1 mg/dl (1.6-2.3) 12/28/23 04:52
Total Bilirubin 1.0 mg/dl (0.2-1.3) 12/22/23 16:51
AST 27 U/L (14-36) 12/22/23 16:51
ALT 20 U/L (0-35) 12/22/23 16:51
Alkaline Phosphatase 118 U/L (38-126) 12/22/23 16:51
Total Protein 7.7 g/dl (6.3-8.2) 12/22/23 16:51
Albumin 4.2 g/dl (3.5-5.0) 12/22/23 16:51
Blood Type AB POS 12/26/23 11:19
Blood Type Confirm AB POS 12/23/23 13:52
Antibody Screen Negative (Negative) 12/26/23 11:19
�
Diagnostic Results: as per HPI
Assessment 53-year-old female with PMH of ( hypercoagulability with prothrombin gene mutation (Anti-Thrombin III Deficiency, multiple left lower extremity DVTs, noncompliance with anticoagulation, and active cigarette nicotine dependency) presents
with pain, and numbness of her right toes.� s/p RLE Arteriogram 10/22 showing�'occluded right profunda femoral artery, distal SFA occlusion, occluded popliteal artery and very limited tibial reconstitution of only the peroneal artery. S/P right TKA
on 12/26/2023
Plan
PT/OT to increase independence with ADLs, improve balance, coordination, endurance, strength, mobility, community reintegration, decreased burden of care on others and family education.
Anti-Thrombin III Deficiency- was on xarelto - currently on Heparin. Plan to convert to po anticoagulation?
Right Transtibial Amputation: Monitor incision, edema control with ELBA wrap, pain control, desensitization, Phantom limb pain education, maintain full ROM at hip and knee.
Psych: Psychology consult.� Monitor mood, adjust medications as needed.
Skin: monitor for pressure sores/rashes/lesions.
Pain: acetaminophen . Dilaudid IV prn. Consider switching to po pain med as tolerated
Bowel: Colace and Senna, PRN bisacodyl. On miralax
Bladder: Time void, PVRs, PRN straight cath.
Tobacco Abuse: Smoking cessation counseling. Need to find out why smoking whether it is nicotine withdrawal, habit, or oral fixation- stopped smoking on day of admission
GI Prophylaxis: Pantoprazole
DVT Prophylaxis: Mechanical and heparin SC
Pulmonary: Incentive spirometry
Safety: Continue to reinforce assistance with all transfers.
Code Status:� Full code
Dispo (date/plan/equipment needs): Home with family care.� Social history reviewed.
Functional and Medical Goals: Modified Independent with ADL�s, ambulation, transfers
Discharge Destination: Acute inpatient rehabilitation
Summary of recommendations:
- Discharge Destination: Acute inpatient rehabilitation for PT/OT to increase independence with ADLs, improve balance, coordination, endurance, strength, mobility, community reintegration, decreased burden of care on others and family education.
Ambulatory dysfunction status post right BKA: PT/OT
Anti-Thrombin III Deficiency- was on xarelto - currently on Heparin. Plan to convert to po anticoagulation?
Right Transtibial Amputation: Monitor incision, edema control with ELBA wrap, pain control, desensitization, Phantom limb pain education, maintain full ROM at hip and knee.
Pain: acetaminophen or oxycodone prn. Gabapentin if phantom pain. Dilaudid IV prn. Consider switching to po pain med as tolerated. Pain must be under controlled on PO meds
Bowel: Colace and Senna, PRN bisacodyl. On Miralax. last Bowel movement- today
Bladder: Time void, PVRs, PRN straight cath.
DVT Prophylaxis: Mechanical and heparin SC
Pulmonary: Incentive spirometry
Thank you for allowing me to care for your patient. Please contact me with any questions or concerns.
This note was dictated using a voice recognition system. Please excuse any typographical errors from care aid. If you believe there are any discrepancies, please notify our office.

Documented by User: Zeb Weinstein MD 12/29/23 17:50
Consultation - Medical
-
Referring Provider:
Chief Complaint: Ambulatory dysfunction s/p right below-knee amputation
History of Present Illness: 53-year-old female with a past medical history of hypercoagulability with prothrombin gene mutation (Anti-Thrombin III Deficiency, multiple left lower extremity DVTs, noncompliance with anticoagulation, and active
cigarette nicotine dependency presents with pain, and numbness of her right toes.� Her right third toe is necrotic.� She admits to stopping her Xarelto a few months ago because she is 'not good with medications'. Critical limb ischemia right lower
extremity s/p RLE Arteriogram 10/22 showing�'occluded right profunda femoral artery, distal SFA occlusion, occluded popliteal artery and very limited tibial reconstitution of only the peroneal artery.
Past Medical History: Anti-Thrombin III Deficiency,multiple left lower extremity DVTs. States history of arthritis left knee and right hip
Procedure History: S/p right BKA by vascular surgery 12/26
Family History:
Social History:
Functional Level Premorbidly: Independent with all activities
Functional Level Currently: Patient hopped with rolling walker 25 feet with min assist, stand to sit transfer min assist, stand/pivot/sit�min assist, supine to sit mobility�mod I, eating, grooming�set up, toileting�mod assist, lower extremity
self-care supervision
Tobacco: smoker- on admission
Alcohol: Denies
Drug use: Denies
Lives with: adult son
24-hour assistance available:
Number of floors: 2
# steps to enter: 1+1 from back patio
# steps to second floor:
Potential First floor set up: Bedroom on the first floor
Driving: yes
Occupation: Works from home
�
Allergies:
Allergy/AdvReac Type Severity Reaction Status Date / Time
No Known Allergies Allergy Verified 12/22/23 15:05
Review of Systems:
Constitutional: (x) Normal _
Eye: (x) Normal _
Ear/Nose/Throat: (x) Normal _
Respiratory: (x) smoker
Cardiovascular: (x) Normal _
Gastrointestinal: (x) constipation
Genitourinary: (x) Normal _
Musculoskeletal: (x) right BKA
Integumentary: (x) Normal _
Neurologic: (x) Normal _
Psychiatric: (x) Normal _
Endocrine: (x) Normal _
Hematologic/Lymphatic:Anti-Thrombin III Deficiency , DVTs
Allergic/Immunologic: (x) Normal _
Medications:
Active Current Visit Medication List
Category Date Time Status
0.9% Sodium Chloride [Nss (Preservative Free)] Med 12/26/23 16:11 Active
0.9 ml IV Q2MPRN PRN
Acetaminophen [Tylenol] Med 12/22/23 20:34 Active
650 mg PO Q4HPRN PRN
Bisacodyl [Dulcolax] Med 12/23/23 15:09 Active
10 mg RECTAL DAILYPRN PRN
Docusate W/Senna [Senokot-S] Med 12/27/23 13:20 Active
2 tablet PO BID
Flush (0.9% Sodium Chloride) [Flush (Nss)] Med 12/22/23 21:00 Active
See Dose Instructions IV PER PROTOCOL
HYDROmorphone EDUCATION COURSES SALES REPRESENTATIVE 1 MG/ML [Dilaudid EDUCATION COURSES SALES REPRESENTATIVE] Med 12/26/23 16:15 Active
30 mg in 30 ml IV PER PROTOCOL
Heparin Med 12/28/23 23:34 Active
3,100 units IV PRN PRN
Heparin Med 12/28/23 23:33 Active
6,100 units IV PRN PRN
Heparin [id number] Units/250 ml Med 12/28/23 23:30 Active
25,000 units in 250 ml IV PER PROTOCOL
Melatonin Med 12/28/23 22:00 Active
5 mg PO HS
Naloxone [Narcan] Med 12/26/23 16:11 Active
0.04 mg IV Q2MPRN PRN
Ondansetron Injectable [Zofran] Med 12/23/23 14:52 Active
4 mg IV Q6HPRN PRN
Polyethylene Glycol Powder [Miralax] Med 12/27/23 20:00 Active
17 grams PO BID
Vitals:
Temp Pulse Resp BP Pulse Ox
98 F 62 18 126/72 98
12/29/23 07:58 12/29/23 07:58 12/29/23 12:00 12/29/23 07:58 12/29/23 12:00
Height 5 ft 4 in
Actual Weight 74.571 kg
Body Mass Index (BMI) 28.2
Physical Exam:
General Appearance/Observation: Well-developed, well-nourished individual in no apparent distress.
Pain/Comfort Assessment: right stump- controlled with pain med
Mood/Affect: Appropriate, pleasant
Integumentary/Operative Site:
�� Pressure Ulcer Evaluation: bilateral heel pads noted.
��
�� Other Type of Wound: right stump dressed. LEXI drain noted
��
Eyes: Conjunctiva/Lids: normal ��� Pupils: pupils equal round and reactive to light and Accommodation
Ears/Nose/Throat: oral mucosa moist,� throat clear.������������ Lips/Teeth/Gums: normal
Neck: No muscle spasm or tenderness
Cardiovascular: Heart: regular, no murmur
Pulses: dorsalis pedis 2+ left,
Respiratory: Respiratory Effort/Chest Expansion: normal ������ Auscultation: Clear to auscultation bilaterally
Gastrointestinal: abdomen not tender, no distension, Hyperactive abdominal bowel sounds
Genitourinary: Cee
Extremities: Edema: none Cyanosis: None Trophic changes: None
Neurology Exam:
Orientation: Alert, Oriented to self, Time, Place
Memory: Intact for immediate medical concerns
Higher cortical function
Repetition: Intact
Comprehension: Intact
Two step command: Intact
Naming: Intact
Cranial Nerves:
�� CNII: Pupillary light reflex: Intact��� Visual Field: Intact
�� CN III, IV, : Extraocular muscles: Intact
�� CN V: Facial Sensation at Forehead: Intact, Maxilla: Intact, Mandible: Intact
�� CN VII: Facial movement: Symmetric
�� CN VIII: Hearing: Normal
�� CN IX/X: Speech & swallow: Normal, Position of Uvula: Midline
�� CN XI: Shoulder shrug: Symmetric
�� CN XII: Tongue protrusion: Midline
Sensory:
�� Light touch: Intact in bilateral upper and lower extremities
��
Reflexes:
�� Biceps: 2+ bilaterally
�� Brachioradialis: 2+ bilaterally
�� Triceps: 2+ bilaterally
�� Patellar: 2+ left, deferred right side
�� Achilles: 2+ left,
� Irish: Negative bilaterally
Cerebellar: Dysmetria/Ataxia: None
Musculoskeletal:
Motor: (Manual muscle scale 0-5)
Muscle SA EF WE EE FF FA HF KE DF EHL PF
Right� 5 5 5 5 5 5 2 2 - - -
Left 5 5 5 5 5 5 5 5 5 5 5
Tone: Normal in all extremities
Range of Motion: Passively within normal limits in all extremities
Lab Results
Labs
WBC 9.1 10^3/uL (4.8-10.8) 12/29/23 05:46
RBC 4.11 10^6/uL (4.20-5.40) L 12/29/23 05:46
Hgb 13.9 g/dL (12.0-16.0) 12/29/23 05:46
Hct 39.8 % (37.0-47.0) 12/29/23 05:46
MCV 96.8 fL (81.0-99.0) 12/29/23 05:46
MCH 33.8 pg (27.0-31.0) H 12/29/23 05:46
MCHC 34.9 g/dL (33.0-37.0) 12/29/23 05:46
RDW 12.8 % (11.5-14.5) 12/29/23 05:46
Plt Count 188 10^3/uL (130-400) 12/29/23 05:46
MPV 10.6 fL (7.4-10.4) H 12/29/23 05:46
Abs Immat Gran (auto) 0.0 10^3/uL (0-0.05) 12/22/23 16:51
Absolute Neuts (auto) 7.4 10^3/uL (1.4-6.5) H 12/22/23 16:51
Absolute Lymphs (auto) 1.6 10^3/uL (1.2-3.4) 12/22/23 16:51
Absolute Monos (auto) 0.8 10^3/uL (0.1-0.6) H 12/22/23 16:51
Absolute Eos (auto) 0.0 10^3/uL (0-0.7) 12/22/23 16:51
Absolute Basos (auto) 0.0 10^3/uL (0-0.2) 12/22/23 16:51
Immature Gran % 0.2 % (0-0.5) 12/22/23 16:51
Neutrophils % 75.2 % (42.2-75.2) 12/22/23 16:51
Lymphocytes % 16.5 % (20.5-51.1) L 12/22/23 16:51
Monocytes % 7.7 % (1.7-9.3) 12/22/23 16:51
Eosinophils % 0.1 % (0-6) 12/22/23 16:51
Basophils % 0.3 % (0-2) 12/22/23 16:51
Nucleated RBC % 0 % 12/22/23 16:51
PT 12.8 Sec (11.4-14.6) 12/27/23 05:06
INR 0.98 12/27/23 05:06
APTT Cancelled 12/29/23 13:15
Sodium 137 mmol/L (135-145) 12/29/23 05:46
Potassium 4.1 mmol/L (3.5-5.1) 12/29/23 05:46
Chloride 109 mmol/L (98-107) H 12/29/23 05:46
Carbon Dioxide 24 mmol/L (22-30) 12/29/23 05:46
BUN 8 mg/dl (7-17) 12/29/23 05:46
Creatinine 0.6 mg/dL (0.6-1.0) 12/29/23 05:46
Estimated Creat Clear 107 ml/min 12/29/23 05:46
eGFR > 60.00 12/29/23 05:46
Glucose 123 mg/dl (70-99) H 12/29/23 05:46
Calcium 8.7 mg/dl (8.4-10.2) 12/29/23 05:46
Magnesium 2.1 mg/dl (1.6-2.3) 12/28/23 04:52
Total Bilirubin 1.0 mg/dl (0.2-1.3) 12/22/23 16:51
AST 27 U/L (14-36) 12/22/23 16:51
ALT 20 U/L (0-35) 12/22/23 16:51
Alkaline Phosphatase 118 U/L (38-126) 12/22/23 16:51
Total Protein 7.7 g/dl (6.3-8.2) 12/22/23 16:51
Albumin 4.2 g/dl (3.5-5.0) 12/22/23 16:51
Blood Type AB POS 12/26/23 11:19
Blood Type Confirm AB POS 12/23/23 13:52
Antibody Screen Negative (Negative) 12/26/23 11:19
�
Diagnostic Results: as per HPI
Assessment 53-year-old female with PMH of ( hypercoagulability with prothrombin gene mutation (Anti-Thrombin III Deficiency, multiple left lower extremity DVTs, noncompliance with anticoagulation, and active cigarette nicotine dependency) presents
with pain, and numbness of her right toes.� s/p RLE Arteriogram 10/22 showing�'occluded right profunda femoral artery, distal SFA occlusion, occluded popliteal artery and very limited tibial reconstitution of only the peroneal artery. S/P right TKA
on 12/26/2023
Plan
PT/OT to increase independence with ADLs, improve balance, coordination, endurance, strength, mobility, community reintegration, decreased burden of care on others and family education.
Anti-Thrombin III Deficiency- was on xarelto - currently on Heparin. Plan to convert to po anticoagulation?
Right Transtibial Amputation: Monitor incision, edema control with ELBA wrap, pain control, desensitization, Phantom limb pain education, maintain full ROM at hip and knee.
Psych: Psychology consult.� Monitor mood, adjust medications as needed.
Skin: monitor for pressure sores/rashes/lesions.
Pain: acetaminophen . Dilaudid IV prn. Consider switching to po pain med as tolerated
Bowel: Colace and Senna, PRN bisacodyl. On miralax
Bladder: Time void, PVRs, PRN straight cath.
Tobacco Abuse: Smoking cessation counseling. Need to find out why smoking whether it is nicotine withdrawal, habit, or oral fixation- stopped smoking on day of admission
GI Prophylaxis: Pantoprazole
DVT Prophylaxis: Mechanical and heparin SC
Pulmonary: Incentive spirometry
Safety: Continue to reinforce assistance with all transfers.
Code Status:� Full code
Dispo (date/plan/equipment needs): Home with family care.� Social history reviewed.
Functional and Medical Goals: Modified Independent with ADL�s, ambulation, transfers
Discharge Destination: Acute inpatient rehabilitation
Summary of recommendations:
- Discharge Destination: Acute inpatient rehabilitation for PT/OT to increase independence with ADLs, improve balance, coordination, endurance, strength, mobility, community reintegration, decreased burden of care on others and family education.
Ambulatory dysfunction status post right BKA: PT/OT
Anti-Thrombin III Deficiency- was on xarelto - currently on Heparin. Plan to convert to po anticoagulation?
Right Transtibial Amputation: Monitor incision, edema control with ELBA wrap, pain control, desensitization, Phantom limb pain education, maintain full ROM at hip and knee.
Pain: acetaminophen or oxycodone prn. Gabapentin if phantom pain. Dilaudid IV prn. Consider switching to po pain med as tolerated. Pain must be under controlled on PO meds
Bowel: Colace and Senna, PRN bisacodyl. On Miralax. last Bowel movement- today
Bladder: Time void, PVRs, PRN straight cath.
DVT Prophylaxis: Mechanical and heparin SC
Pulmonary: Incentive spirometry
Thank you for allowing me to care for your patient. Please contact me with any questions or concerns.
Patient seen and examined by me today. Case discussed with Ary Macias PA-C. I agree with above note, exam and plan as outlined above. Patient had been on xarelto for AT-III deficiency. Will need to restart once on PO meds, and will need to
watch for additional bleeding from surgical site, hematoma, etc. Pain control to switch to PO meds, although she says has been tolerating tylenol when at rest - but with therapies and dressing changes will likely need the stronger pain control.
Good acute rehabilitation candidate for pre-prosthetic training and mobility ,and wound management.
This note was dictated using a voice recognition system. Please excuse any typographical errors from care aid. If you believe there are any discrepancies, please notify our office.
--- NOTE | 2023-12-29 13:34 | CM ---
CM following re: discharge planning.
Reviewed pt's chart, met with pt. Pt's brother and sister in law at bedside.
PT and PT evaluations noted - acute rehab recommended. Both pt and her family are aware, expressed their agreement and pt stated her preference is only acute rehab at [facility] in . CM explained admitting criteria for acute level of rehab and both pt
and her family expressed their understanding.
Pt will need PM&R consult.
A referral to [facility] acute rehab made.
D/C plan: [facility] acute rehab.
CM will follow to assist pt with discharge to [facility] acute rehab.
--- NOTE | 2023-12-29 13:44 | W.PN.VS ---
Today's Communication / Plan
-
Discussed with Dr. Cee
Assessment/Plan
-
Assessment: 53-year-old female with peripheral artery disease/critical limb threatening ischemia POD #3 R BKA
Plan:
DC drain tomorrow
PT/OT
Convert pain medications to oral
Rehab consult
Cont heparin gtt
Subjective Data
-
Date of Service: December 29, 2023
Patient seen at bedside this afternoon, resting comfortably with no complaints. Heparin drip infusing.
Objective Data
-
Vital Signs
Temp Pulse Resp BP Pulse Ox
98 F 62 18 126/72 98
12/29/23 07:58 12/29/23 07:58 12/29/23 12:00 12/29/23 07:58 12/29/23 12:00
Intake and Output
12/28/23 12/29/23 12/30/23
06:59 06:59 06:59
Intake Total 3080 / 3080 3198 / 3198
Output Total 3865 / 3865 355 / 355
Balance -785 / -785 2843 / 2843
Intake:
Oral fluids 2520 / 2520 1940 / 1940
IV fluids (Total) 560 / 560 1160 / 1160
IV piggybacks 98 /
Output:
Drain Output (Total) 5
Right Leg Ruben-Reynolds
UrineColeman 3730 / 3730
Urine, Voided 120 / 120 350 / 350
Other:
Number of approximated MODERATE 2
amounts of urine
Number of approximated LARGE 2
amounts of urine
Number of unmeasured liquid
stools
Rectum 1
Lab Results
12/29/23 05:46
12/29/23 05:46
Calcium 8.7 mg/dl (8.4-10.2) 12/29/23 05:46
Magnesium 2.1 mg/dl (1.6-2.3) 12/28/23 04:52
Total Bilirubin 1.0 mg/dl (0.2-1.3) 12/22/23 16:51
AST 27 U/L (14-36) 12/22/23 16:51
ALT 20 U/L (0-35) 12/22/23 16:51
Alkaline Phosphatase 118 U/L (38-126) 12/22/23 16:51
Total Protein 7.7 g/dl (6.3-8.2) 12/22/23 16:51
Albumin 4.2 g/dl (3.5-5.0) 12/22/23 16:51
Physical Exam
-
AAOx3
No tachypnea
No tachycardia
Abdomen soft
Stump site clean dry and intact, suture line well-approximated
Stump soft, no drainage
[2023-12-29 15:32] LABS: APTT 57.4 Sec (23.4-35.0)
[2023-12-29 15:42] VITALS: BP 115/62
--- NOTE | 2023-12-29 16:28 | PTCARENOTE ---
Patient's PTT result drawn at 1509 resulted at 1550 was 57.4. Per protocol patient is to be bolused 6100 units and increase heparin gtt rate by 300 units/hour. Patients PTT had increased significantly this AM to > 200 after bolus received last
night. Reached out to Dr. Young regarding following the protocol and including the bolus because of the significant PTT result this Am. Dr. Young instructed RN to follow the protocol. Per protocol, patient received a 6100 unit bolus and rate
increased by 300 units/ hr to 1400 units / hour at 1615. PTT to be drawn around 2215.
[2023-12-29] MEDS: HEPARIN 25000 UNITS/250 ML IV (20:22)
[2023-12-29] MEDS: MELATONIN 5 MG PO (20:23)
[2023-12-29] MEDS: ROXICODONE 5 MG PO (20:25)
[2023-12-29 23:05] VITALS: BP 113/63
[2023-12-30] MEDS: ROXICODONE 5 MG PO ×3 (00:04→19:48)
[2023-12-30] MEDS: TYLENOL 650 MG PO ×4 (02:41→22:23)
[2023-12-30 05:08] LABS: APTT 101.6 Sec (23.4-35.0)
[2023-12-30 05:11] LABS: % Basophils 0.3 % (0-2); % Eosinophils 2.8 % (0-6); % Immature Granulocytes 0.6 % (0-0.5); % Lymphocytes 31.3 % (20.5-51.1); % Monocytes 11.9 % (1.7-9.3); % Neutrophils 53.1 % (42.2-75.2); Absolute Eosinophils 0.3 10^3/uL (0-0.7); Absolute Immature Granulocytes 0.1 10^3/uL (0-0.05); Absolute Lymphocytes 2.8 10^3/uL (1.2-3.4); Absolute Monocytes 1.1 10^3/uL (0.1-0.6); Absolute Neutrophils 4.8 10^3/uL (1.4-6.5); Hematocrit 37.6 % (37.0-47.0); Hemoglobin 12.9 g/dL (12.0-16.0); Mean Corp Hgb Conc. 34.3 g/dL (33.0-37.0); Mean Corpuscular Hgb 32.3 pg (27.0-31.0); Mean Corpuscular Volume 94.2 fL (81.0-99.0); Mean Platelet Volume 10.7 fL (7.4-10.4); Nucleated Red Blood Cells % 0 %; Platelet Count 190 10^3/uL (130-400); Red Blood Cell Count 3.99 10^6/uL (4.20-5.40)
[2023-12-30 05:21] LABS: Blood Urea Nitrogen 12 mg/dl (7-17); Calcium 8.8 mg/dl (8.4-10.2); Carbon Dioxide 25 mmol/L (22-30); Chloride 106 mmol/L (98-107); Estimated Creatinine Clearance 107 ml/min; Glucose 117 mg/dl (70-99); Potassium 4.2 mmol/L (3.5-5.1); Sodium 136 mmol/L (135-145); eGFR > 60.00
[2023-12-30 06:00] VITALS: BMI 28.1
[2023-12-30] MEDS: SENOKOT-S PO ×2 (07:25→19:59)
[2023-12-30] MEDS: MIRALAX PO ×2 (07:25→19:59)
--- NOTE | 2023-12-30 07:33 | W.PN.VS ---
Addendum entered and electronically signed by Homer Cee III, MD 12/30/23 10:27:
Patient was seen and examined with GRAHAM Davis. I agree with the history/physical exam/assessment/plan.
R BKA stump clean/dry
Jason drain removed
OK to transition to oral anticoag
Oral pain meds
Bowel regimen
Continue PT
Rehab placement
Stump protector at all times when out of bed
F/U with me in the office in 3-4 weeks
PJF3
Original Note:
Today's Communication / Plan
-
Seen and assessed with Dr. Cee
Assessment/Plan
-
Assessment: 53-year-old female with peripheral artery disease/critical limb threatening ischemia POD #4 R BKA
Plan:
PT/OT
Pain management on PO's
Can covert heparin gtt or oral
OK for rehab from vascular standpoint
Subjective Data
-
Date of Service: December 30, 2023
Patient seen at bedside this a.m. with Dr. Cee. No events overnight. Patient tolerating p.o. pain medications.
Objective Data
-
Vital Signs
Temp Pulse Resp BP Pulse Ox
98.3 F 74 16 113/63 97
12/29/23 23:05 12/29/23 23:05 12/29/23 23:05 12/29/23 23:05 12/29/23 23:05
Intake and Output
12/29/23 12/30/23 12/31/23
06:59 06:59 06:59
Intake Total 3198 / 3198 2159 / 0
Output Total 355 / 355
Balance 2843 / 2843 2140 / 2140
Intake:
Oral fluids 1939 / 0 2159 / 2159
IV fluids (Total) 1160 / 1160
IV piggybacks 98 / 98
Output:
Drain Output (Total)
Right Leg Ruben-Reynolds
Urine, Voided 350 / 350
Other:
Number of approximated MODERATE 2 2
amounts of urine
Number of approximated LARGE 2 2
amounts of urine
Number of unmeasured liquid
stools
Rectum 1
Lab Results
12/30/23 04:26
12/30/23 04:26
Calcium 8.8 mg/dl (8.4-10.2) 12/30/23 04:26
Magnesium 2.1 mg/dl (1.6-2.3) 12/28/23 04:52
Total Bilirubin 1.0 mg/dl (0.2-1.3) 12/22/23 16:51
AST 27 U/L (14-36) 12/22/23 16:51
ALT 20 U/L (0-35) 12/22/23 16:51
Alkaline Phosphatase 118 U/L (38-126) 12/22/23 16:51
Total Protein 7.7 g/dl (6.3-8.2) 12/22/23 16:51
Albumin 4.2 g/dl (3.5-5.0) 12/22/23 16:51
Physical Exam
-
AAOx3
No tachypnea
No tachycardia
Abdomen soft
Stump site clean dry and intact, suture line well-approximated
Stump soft, no drainage
LEXI removed at bedside
[2023-12-30 07:38] VITALS: BP 123/68
[2023-12-30 10:52] LABS: APTT 109.4 Sec (23.4-35.0)
--- NOTE | 2023-12-30 12:00 | CM ---
Spoke with previous CM on case who stated that patient plan is for [facility] when stable. Spoke with attending who stated that he will be ordering a PMNR consult for hopeful transfer to [facility]. Placed a call to Marlena in admissions at [facility] who stated
that as soon as she sees the results of the PMNR eval she will render determination about acceptance. Acceptance is also pending auth from insurance company. Marlena confirmed that she will have a bed for tomorrow.
Plan: Case management will continue to follow and assist with discharge planning. Hopeful transfer to [facility] pending acceptance and auth from insurance.
--- NOTE | 2023-12-30 14:00 | W.PN.HOSP.TC ---
Addendum entered and electronically signed by Negro Young MD 12/30/23 16:11:
Patient seen and examined
Discussed with resident
Impression/plan
Critical limb ischemia status post right BKA.
Off IV heparin and transition to Xarelto.
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
Physiatry consultation.
Rehab planing
Original Note:
Today's Communication/Plan
-
Rehab placement
transition to oral anticoagulant Xarelto
Assessment / Plan
Assessment / Plan
Assessment/Plan
Critical limb ischemia right lower extremity
-Appreciate vascular surgery input, s/p RLE Arteriogram 10/22 showing 'occluded right profunda femoral artery, distal SFA occlusion, occluded popliteal artery and very limited tibial reconstitution of only the peroneal artery'
-S/p right BKA by vascular surgery 12/26
-Pain control, PT/OT, heparin drip
Constipation
-No bowel movement since admission, 6 days ago
-Continue MiraLAX twice a day, senna S twice a day
-Magnesium citrate 300 mL x 1
Anti-Thrombin III Deficiency
Medication noncompliance
-Patient previously on Xarelto but stopped taking several months ago
Tobacco Use Disorder
-Encourage smoking cessation, nicotine patch as needed
DVT prophylaxis�SCDs
Full code
Anticipated Discharge: 24 - 48 hours
Subjective/Interval History
-
Date of Service: December 30, 2023
Objective Data
-
Labs:
Laboratory Results
12/30/23 12/30/23
04:26 10:21
WBC 9.0
Hgb 12.9
Hct 37.6
Plt Count 190
APTT 101.6 H 109.4 H
Sodium 136
Potassium 4.2
Chloride 106
Carbon Dioxide 25
BUN 12
Creatinine 0.6
Glucose 117 H
Calcium 8.8
Vital Signs:
Vital Signs
Temp Pulse Resp BP Pulse Ox
97.5 F 72 16 123/68 97
12/30/23 07:38 12/30/23 07:38 12/30/23 07:38 12/30/23 07:38 12/30/23 07:38
I&O
12/29/23 12/30/23 12/31/23
06:59 06:59 06:59
Intake Total 3198 / 3198 2160 / 2160
Output Total 355 / 355
Balance 2843 / 2843 2140 / 2140
Physical Exam
-
General: Well Developed and Well Nourished
HEENT: Normocephalic and Atraumatic
Respiratory: Clear to Auscultation; Negative Wheezes or Rales
Cardiac: Regular Rhythm and S1/S2
GI: Soft, Nontender and Nondistended
Musculoskeletal: No Clubbing and No Cyanosis
[2023-12-30 15:01] VITALS: BP 111/54
[2023-12-30] MEDS: XARELTO 20 MG PO (17:59)
[2023-12-30 18:55] VITALS: BP 127/70
[2023-12-30] MEDS: MELATONIN 5 MG PO (19:54)
[2023-12-30 23:05] VITALS: BP 126/70
[2023-12-31] MEDS: ROXICODONE 5 MG PO ×2 (02:00→20:51)
--- NOTE | 2023-12-31 05:04 | DOWNTIME ---
There was a [employer] Client Industrial Manufacturing Technician Downtime on 12/31/2023 from 0111 to 12/31/2023 at 0405. Downtime documentation of patient's care, including medication administrations, has been reconciled in the electronic record per guidelines. Refer to the
patient's paper chart under the miscellaneous tab to see printed paper medication records and downtime forms.
[2023-12-31 06:00] VITALS: BMI 27.9
[2023-12-31] MEDS: SENOKOT-S PO ×2 (07:31→20:38)
[2023-12-31] MEDS: MIRALAX PO ×2 (07:31→20:38)
[2023-12-31 07:41] VITALS: BP 122/78
[2023-12-31] MEDS: TYLENOL 650 MG PO ×2 (08:39→14:35)
--- NOTE | 2023-12-31 12:18 | W.PN.HOSP.TC ---
Addendum entered and electronically signed by Negro Young MD 12/31/23 16:41:
Patient seen and examined
Discussed with resident.
Status post right BKA for critical limb ischemia.
Hypercoagulable disorder resumed on Xarelto.
Adequate analgesic regimen currently.
Patient is medically cleared for rehab placement.
Original Note:
Today's Communication/Plan
-
Critical limb ischemia status post right BKA.
Acute Rehab planing
Assessment / Plan
Assessment / Plan
Assessment/Plan
Critical limb ischemia right lower extremity
-Appreciate vascular surgery input, s/p RLE Arteriogram 10/22 showing 'occluded right profunda femoral artery, distal SFA occlusion, occluded popliteal artery and very limited tibial reconstitution of only the peroneal artery'
-S/p right BKA by vascular surgery 12/26
-Pain control, PT/OT, heparin drip
Constipation
-No bowel movement since admission, 6 days ago
-Continue MiraLAX twice a day, senna S twice a day
-Magnesium citrate 300 mL x 1
Anti-Thrombin III Deficiency
Medication noncompliance
-Patient previously on Xarelto but stopped taking several months ago
Tobacco Use Disorder
-Encourage smoking cessation, nicotine patch as needed
DVT prophylaxis�SCDs
Full code
Anticipated Discharge: Within 24 hours
Subjective/Interval History
-
Date of Service: December 31, 2023
Objective Data
-
Vital Signs:
Vital Signs
Temp Pulse Resp BP Pulse Ox
97.8 F 65 18 122/78 96
12/31/23 07:41 12/31/23 07:41 12/31/23 07:41 12/31/23 07:41 12/31/23 07:41
I&O
12/30/23 12/31/23 01/01/24
06:59 06:59 06:59
Intake Total 2160 / 2160 1380 / 1380
Output Total
Balance 2139 / 2139 1380 / 1380
Physical Exam
-
General: Well Developed and Well Nourished
HEENT: Normocephalic and Atraumatic
Respiratory: Clear to Auscultation; Negative Wheezes or Rales
Cardiac: Regular Rhythm and S1/S2
GI: Soft, Nontender and Nondistended
Musculoskeletal: No Clubbing and No Cyanosis
--- NOTE | 2023-12-31 15:06 | CM ---
Plan pt for acute inpatient rehab
--Pt medically ready
Called [facility] [phone] to obtain auth
Spoke with Joaquin Aguirre
Auth pending - [id number]
Plan - acute inpatient rehab - [facility] when auth obtained
[2023-12-31 15:29] VITALS: BP 123/71
[2023-12-31] MEDS: XARELTO 20 MG PO (17:04)
[2023-12-31] MEDS: MELATONIN 5 MG PO (21:02)
[2023-12-31 23:00] VITALS: BP 118/65
[2024-01-01] MEDS: TYLENOL 650 MG PO ×3 (01:17→14:45)
[2024-01-01 05:12] LABS: Hematocrit 38.3 % (37.0-47.0); Hemoglobin 12.8 g/dL (12.0-16.0); Mean Corp Hgb Conc. 33.4 g/dL (33.0-37.0); Mean Corpuscular Hgb 32.3 pg (27.0-31.0); Mean Corpuscular Volume 96.7 fL (81.0-99.0); Mean Platelet Volume 10.5 fL (7.4-10.4); Platelet Count 229 10^3/uL (130-400); Red Blood Cell Count 3.96 10^6/uL (4.20-5.40); Red Cell Dist. Width 12.6 % (11.5-14.5); White Blood Cell Count 8.6 10^3/uL (4.8-10.8)
[2024-01-01 06:00] VITALS: BMI 28.1
[2024-01-01] MEDS: ROXICODONE 5 MG PO ×2 (06:17→21:28)
[2024-01-01 07:00] VITALS: BP 108/71
[2024-01-01] MEDS: MIRALAX PO ×2 (09:15→20:37)
[2024-01-01] MEDS: SENOKOT-S PO ×2 (09:15→20:37)
--- NOTE | 2024-01-01 12:16 | CM ---
Addendum entered by Citlalli Linares 01/01/24 14:25:
Clinicals faxed to to intake at [facility]
Awaiting auth
[facility] when auth obtained
Original Note:
RUTH ANN spoke with Percy at [facility] [phone] regarding pend auth
Percy reporting case has been assigned to Nurse Arminda Huggins
Case remains pending
Made aware pt has a bed at [facility] but auth is needed corinne
Reports he will expedite case
CM cont to follow
--- NOTE | 2024-01-01 13:50 | W.PN.HOSP.TC ---
Today's Communication/Plan
-
Pending placement to acute rehab.
Assessment / Plan
Assessment / Plan
Assessment/Plan
Critical limb ischemia right lower extremity
-Appreciate vascular surgery input, s/p RLE Arteriogram 10/22 showing 'occluded right profunda femoral artery, distal SFA occlusion, occluded popliteal artery and very limited tibial reconstitution of only the peroneal artery'
-S/p right BKA by vascular surgery 12/26
-Pain control, PT/OT, heparin drip
Constipation
-No bowel movement since admission, 6 days ago
-Continue MiraLAX twice a day, senna S twice a day
-Magnesium citrate 300 mL x 1
Anti-Thrombin III Deficiency
Medication noncompliance
-Patient previously on Xarelto but stopped taking several months ago
Tobacco Use Disorder
-Encourage smoking cessation, nicotine patch as needed
DVT prophylaxis�SCDs
Full code
Anticipated Discharge: Today
Subjective/Interval History
-
Date of Service: January 01, 2024
Objective Data
-
Labs:
Laboratory Results
01/01/24
04:33
WBC 8.6
Hgb 12.8
Hct 38.3
Plt Count 229 D
Vital Signs:
Vital Signs
Temp Pulse Resp BP Pulse Ox
97.9 F 64 16 108/71 99
01/01/24 07:00 01/01/24 07:00 01/01/24 07:00 01/01/24 07:00 01/01/24 09:13
I&O
12/31/23 01/01/24 01/02/24
06:59 06:59 06:59
Intake Total 1380 / 1380 2340 / 2340
Balance 1380 / 1380 2340 / 2340
Physical Exam
-
General: Well Developed and No Apparent Distress
HEENT: Normocephalic, Atraumatic and Moist Mucous Membranes
Respiratory: Clear to Auscultation
Cardiac: Regular Rhythm and S1/S2; Negative Murmur, Rub or Gallop
GI: Soft, Nontender, Nondistended and Normal Bowel Sounds; Negative Organomegaly
Rectal: Deferred by Provider
Musculoskeletal: No Clubbing, No Cyanosis and No Edema
Skin: Negative Rash
Neuro: Nonfocal/Grossly Intact
[2024-01-01 15:00] VITALS: BP 114/67
[2024-01-01] MEDS: XARELTO 20 MG PO (17:24)
[2024-01-01] MEDS: MELATONIN 5 MG PO (21:28)
[2024-01-01 23:00] VITALS: BP 120/73
[2024-01-02] MEDS: TYLENOL 650 MG PO ×4 (02:24→23:09)
[2024-01-02] MEDS: ROXICODONE 5 MG PO ×2 (02:24→22:25)
[2024-01-02 06:00] VITALS: BMI 28.1
[2024-01-02 07:40] VITALS: BP 113/67
[2024-01-02] MEDS: MIRALAX PO ×2 (09:22→20:30)
[2024-01-02] MEDS: SENOKOT-S PO ×2 (09:22→20:30)
--- NOTE | 2024-01-02 11:07 | CM ---
Addendum entered by Citlalli Linares 01/02/24 15:28:
Called [facility] [phone] to check on status of pending auth [id number]
Spoke with rep Dolores Aragon
Per Dolores - auth is still pending
CM following
Plan - transfer to [facility] when auth obtained
Report - [phone]
Fax - [phone]
Original Note:
Called [facility] [phone] to elena cj status of pending auth - [id number]
Spoke with tax representative Elissa
Per Elissa - clinicals have been received and are under review
auth remains pending
CM following
Plan - transfer to [facility] when auth obtained
--- NOTE | 2024-01-02 14:17 | W.PN.HOSP.TC ---
Addendum entered and electronically signed by Negro Young MD 01/02/24 15:01:
Patient seen and examined
Discussed with resident
Medically stable for placement to acute rehab pending insurance authorization.
Continue physical therapy
Current analgesic regimen is adequate.
With hypercoagulable state remains on systemic anticoagulation with Xarelto.
Original Note:
Today's Communication/Plan
-
Pending placement to acute rehab.
Assessment / Plan
Assessment / Plan
Assessment/Plan
Critical limb ischemia right lower extremity
-Appreciate vascular surgery input, s/p RLE Arteriogram 10/22 showing 'occluded right profunda femoral artery, distal SFA occlusion, occluded popliteal artery and very limited tibial reconstitution of only the peroneal artery'
-S/p right BKA by vascular surgery 12/26
-Pain control, PT/OT, heparin drip
Constipation
-No bowel movement since admission, 6 days ago
-Continue MiraLAX twice a day, senna S twice a day
-Magnesium citrate 300 mL x 1
Anti-Thrombin III Deficiency
Medication noncompliance
-Patient previously on Xarelto but stopped taking several months ago
Tobacco Use Disorder
-Encourage smoking cessation, nicotine patch as needed
DVT prophylaxis�SCDs
Full code
Anticipated Discharge: Within 24 hours
Subjective/Interval History
-
Date of Service: January 02, 2024
Objective Data
-
Vital Signs:
Vital Signs
Temp Pulse Resp BP Pulse Ox
98.3 F 63 14 113/67 97
01/02/24 07:40 01/02/24 07:40 01/02/24 07:40 01/02/24 07:40 01/02/24 07:40
I&O
01/01/24 01/02/24 01/03/24
06:59 06:59 06:59
Intake Total 2340 / 2340 2160 / 2160
Balance 2339
Physical Exam
-
General: Well Developed, Well Nourished and No Apparent Distress
HEENT: Normocephalic and Atraumatic
Respiratory: Clear to Auscultation
Cardiac: Regular Rhythm and S1/S2; Negative Murmur or Rub
GI: Soft, Nontender and Nondistended
Neuro: Nonfocal/Grossly Intact
[2024-01-02 15:52] VITALS: BP 123/71
[2024-01-02] MEDS: XARELTO 20 MG PO (17:29)
[2024-01-02] MEDS: MELATONIN 5 MG PO (22:25)
[2024-01-02 23:11] VITALS: BP 121/76
[2024-01-03] MEDS: TYLENOL 650 MG PO ×4 (03:51→23:24)
[2024-01-03 06:00] VITALS: BMI 28.0
[2024-01-03 06:47] LABS: Hematocrit 37.6 % (37.0-47.0); Hemoglobin 12.7 g/dL (12.0-16.0); Mean Corp Hgb Conc. 33.8 g/dL (33.0-37.0); Mean Corpuscular Hgb 32.5 pg (27.0-31.0); Mean Corpuscular Volume 96.2 fL (81.0-99.0); Platelet Count 258 10^3/uL (130-400); Red Blood Cell Count 3.91 10^6/uL (4.20-5.40); Red Cell Dist. Width 12.8 % (11.5-14.5); White Blood Cell Count 7.4 10^3/uL (4.8-10.8)
[2024-01-03 07:17] VITALS: BP 110/65
[2024-01-03] MEDS: SENOKOT-S PO ×2 (07:29→19:37)
[2024-01-03] MEDS: MIRALAX PO ×2 (07:29→19:37)
[2024-01-03 10:10] VITALS: BP 121/72; PULSE 72
--- NOTE | 2024-01-03 11:15 | W.PN.HOSP.TC ---
Today's Communication/Plan
-
Discharge planning
Assessment / Plan
Assessment / Plan
Gen-AAOx3, NAD
HEENT-NC, AT, anicteric, clear oral mm
Neck-supple
CV-reg, no M, +S1/S2
Lungs-clear B/L
Abd-soft, NT, ND
Ext-no edema
Musculoskeletal-no cyanosis, clubbing
Skin-warm and dry
Neuro-grossly non-focal
Psych-calm, cooperative
Critical limb ischemia right lower extremity
-Appreciate vascular surgery input, s/p RLE Arteriogram 10/22 showing 'occluded right profunda femoral artery, distal SFA occlusion, occluded popliteal artery and very limited tibial reconstitution of only the peroneal artery'
-S/p right BKA by vascular surgery 12/26
-Pain control, PT/OT
-Continue Xarelto
Constipation -Continue MiraLAX twice a day, senna S twice a day. Moving bowels daily.
-Magnesium citrate 300 mL x 1
Anti-Thrombin III Deficiency -continue Xarelto.
Medication noncompliance
-Patient previously on Xarelto but stopped taking several months ago
Tobacco dependence
-Encourage smoking cessation, nicotine patch as needed
DVT prophylaxis�SCDs
Full code
Dispo -medically stable for discharge to [facility] pending insurance authorization.
Anticipated Discharge: Within 24 hours
Subjective/Interval History
-
Date of Service: January 03, 2024
Patient seen and examined. No complaints. Eager to go to [facility].
Objective Data
-
Labs:
Laboratory Results
01/03/24
05:02
WBC 7.4
Hgb 12.7
Hct 37.6
Plt Count 258
Vital Signs:
Vital Signs
Temp Pulse Resp BP Pulse Ox
97.9 F 65 18 110/65 96
01/03/24 07:17 01/03/24 07:17 01/03/24 07:17 01/03/24 07:17 01/03/24 07:17
I&O
01/02/24 01/03/24 01/04/24
06:59 06:59 06:59
Intake Total 2160 / 2160 480 / 480
Balance 2160 / 2160 480 / 480
Review of Systems
-
History Source: Patient
All other systems: Reviewed and negative
[2024-01-03 15:38] VITALS: BP 120/68
[2024-01-03] MEDS: XARELTO 20 MG PO (17:25)
[2024-01-03] MEDS: ROXICODONE 5 MG PO (22:36)
[2024-01-03] MEDS: MELATONIN 5 MG PO (22:36)
[2024-01-03 23:00] VITALS: BP 97/56
--- NOTE | 2024-01-04 01:10 | PTCARENOTE ---
redressed right BKA, wound with kasey healthy no drainage or open areas. dry dressing with gurvinder and michael wrap applied.
[2024-01-04] MEDS: ROXICODONE 5 MG PO ×3 (03:36→21:13)
[2024-01-04 06:00] VITALS: BMI 28.4
[2024-01-04] MEDS: TYLENOL 650 MG PO ×2 (06:32→23:59)
[2024-01-04 07:00] VITALS: BP 108/70
[2024-01-04] MEDS: SENOKOT-S PO ×2 (09:04→20:40)
[2024-01-04] MEDS: MIRALAX PO ×2 (09:04→20:40)
[2024-01-04 11:10] VITALS: BP 121/72; PULSE 72; O2SAT 95
--- NOTE | 2024-01-04 12:21 | W.PN.HOSP.TC ---
Today's Communication/Plan
-
Discharge planning
Assessment / Plan
Assessment / Plan
Gen-AAOx3, NAD
HEENT-NC, AT, anicteric, clear oral mm
Neck-supple
CV-reg, no M, +S1/S2
Lungs-clear B/L
Abd-soft, NT, ND
Ext-no edema
Musculoskeletal-no cyanosis, clubbing, right below-knee amputation
Skin-warm and dry
Neuro-grossly non-focal
Psych-calm, cooperative
Critical limb ischemia right lower extremity
-Appreciate vascular surgery input, s/p RLE Arteriogram 10/22 showing 'occluded right profunda femoral artery, distal SFA occlusion, occluded popliteal artery and very limited tibial reconstitution of only the peroneal artery'
-S/p right BKA by vascular surgery 12/26
-Pain control, PT/OT
-Continue Xarelto
Constipation -Continue MiraLAX twice a day, senna S twice a day. Moving bowels daily.
-Magnesium citrate 300 mL x 1
Anti-Thrombin III Deficiency -continue Xarelto.
Medication noncompliance
-Patient previously on Xarelto but stopped taking several months ago
Tobacco dependence
-Encourage smoking cessation, nicotine patch as needed
DVT prophylaxis�SCDs
Full code
Dispo -medically stable for discharge to [facility] pending insurance authorization.
Anticipated Discharge: Within 24 hours
Subjective/Interval History
-
Date of Service: January 04, 2024
Patient seen and examined. No complaints. Sitting in the chair.
Objective Data
-
Vital Signs:
Vital Signs
Temp Pulse Resp BP Pulse Ox
98.3 F 62 18 108/70 96
01/04/24 07:00 01/04/24 07:00 01/04/24 07:00 01/04/24 07:00 01/04/24 07:00
I&O
01/03/24 01/04/24 01/05/24
06:59 06:59 06:59
Intake Total 480 / 480 2520 / 2520
Balance 480 / 480 2520 / 2520
Review of Systems
-
History Source: Patient
All other systems: Reviewed and negative
[2024-01-04 15:00] VITALS: BP 112/71
[2024-01-04] MEDS: XARELTO 20 MG PO (17:22)
[2024-01-04] MEDS: MELATONIN 5 MG PO (20:38)
[2024-01-04 23:08] VITALS: BP 119/72
[2024-01-05 04:44] VITALS: BMI 28.5
[2024-01-05] MEDS: TYLENOL 650 MG PO ×2 (04:44→18:11)
[2024-01-05 06:03] LABS: Hematocrit 38.7 % (37.0-47.0); Hemoglobin 12.7 g/dL (12.0-16.0); Mean Corp Hgb Conc. 32.8 g/dL (33.0-37.0); Mean Corpuscular Hgb 31.7 pg (27.0-31.0); Mean Corpuscular Volume 96.5 fL (81.0-99.0); Mean Platelet Volume 10.3 fL (7.4-10.4); Platelet Count 288 10^3/uL (130-400); Red Blood Cell Count 4.01 10^6/uL (4.20-5.40); Red Cell Dist. Width 12.6 % (11.5-14.5); White Blood Cell Count 8.1 10^3/uL (4.8-10.8)
[2024-01-05 07:00] VITALS: BP 109/67
[2024-01-05] MEDS: SENOKOT-S PO ×2 (07:07→20:15)
[2024-01-05] MEDS: MIRALAX PO ×2 (07:07→20:15)
--- NOTE | 2024-01-05 14:42 | W.PN.HOSP.TC ---
Addendum entered and electronically signed by Negro Young MD 01/05/24 14:58:
Patient seen and examined
Discussed with resident
Discussed with director of social media marketing.
Impression/plan
Critical limb ischemia status post right BKA.
Continue physical therapy
Pending discharge at this point likely home with outpatient PT/OT.
Continue anticoagulation.
Original Note:
Today's Communication/Plan
-
Medically stable for placement to acute rehab pending insurance authorization
Assessment / Plan
Assessment / Plan
Critical limb ischemia right lower extremity
-Appreciate vascular surgery input, s/p RLE Arteriogram 10/22 showing 'occluded right profunda femoral artery, distal SFA occlusion, occluded popliteal artery and very limited tibial reconstitution of only the peroneal artery'
-S/p right BKA by vascular surgery 12/26
-Pain control, PT/OT, heparin drip
Constipation
-No bowel movement since admission, 6 days ago
-Continue MiraLAX twice a day, senna S twice a day
-Magnesium citrate 300 mL x 1
Anti-Thrombin III Deficiency
Medication noncompliance
-Patient previously on Xarelto but stopped taking several months ago
Tobacco Use Disorder
-Encourage smoking cessation, nicotine patch as needed
Anticipated Discharge: Within 24 hours
Subjective/Interval History
-
Date of Service: January 05, 2024
Objective Data
-
Labs:
Laboratory Results
01/05/24
05:03
WBC 8.1
Hgb 12.7
Hct 38.7
Plt Count 288
Vital Signs:
Vital Signs
Temp Pulse Resp BP Pulse Ox
98.0 F 66 16 109/67 97
01/05/24 07:00 01/05/24 07:00 01/05/24 07:00 01/05/24 07:00 01/05/24 07:00
I&O
01/04/24 01/05/24 01/06/24
06:59 06:59 06:59
Intake Total 2520 / 2520 3200 / 3200
Balance 2520 / 2520 3200 / 3200
Physical Exam
-
General: Well Developed, Well Nourished and No Apparent Distress
HEENT: Normocephalic and Atraumatic
Respiratory: Clear to Auscultation
Cardiac: Regular Rhythm and S1/S2; Negative Murmur or Rub
GI: Soft, Nontender and Nondistended
Neuro: Nonfocal/Grossly Intact
[2024-01-05 15:00] VITALS: BP 118/71
--- NOTE | 2024-01-05 16:31 | CM ---
Addendum entered by Zaire Leigh 01/05/24 17:05:
Plan is for home discharge with VN, PT/OT. [facility] referral sent. Requested orders for W/ch with elevated leg rest, RW and bedside commode from . Requested orders be placed in chart. Patient has 1 step then landing and another step into home. A
friend is currently building a ramp. Patient lives with her adult son and has multiple relatives that live within 1/2 mile radius if she needs assistance. She has a full bath on the 1st floor but is small. There is a tub and shower on 1st floor.
PT/OT aware of above.
Original Note:
Insurance has denied authorization for Acute Rehab. Determination is based on the services not being medically necessary. Peer to Peer was offered ( ) by 01/08/24 @ 5:00PM with expedited fax @ [phone]. . [facility] admissions
called very shortly thereafter and said they can no longer accept patient because she has improved and does not meet criteria. I informed them that insurance denied auth. made aware. Discussed with patient, PT and OT. PT/OT re-evaluated for
safe discharge home and what equipment she may need. Discharge plan of care: Home with [facility] and wheelchair, RW and bedside commode.
[2024-01-05] MEDS: XARELTO 20 MG PO (18:10)
[2024-01-05] MEDS: MELATONIN 5 MG PO (21:47)
[2024-01-05] MEDS: ROXICODONE 5 MG PO (21:47)
[2024-01-05 23:00] VITALS: BP 117/63
[2024-01-06] MEDS: TYLENOL 650 MG PO ×3 (01:10→13:25)
[2024-01-06] MEDS: ROXICODONE 5 MG PO ×2 (03:27→17:54)
[2024-01-06 06:00] VITALS: BMI 28.3
[2024-01-06] MEDS: MIRALAX PO (07:21)
[2024-01-06] MEDS: SENOKOT-S PO (07:21)
[2024-01-06 07:47] VITALS: BP 110/64
--- NOTE | 2024-01-06 11:26 | W.PN.HOSP.TC ---
Today's Communication/Plan
-
discharge planning
Assessment / Plan
Assessment / Plan
Critical limb ischemia right lower extremity
-Appreciate vascular surgery input, s/p RLE Arteriogram 10/22 showing 'occluded right profunda femoral artery, distal SFA occlusion, occluded popliteal artery and very limited tibial reconstitution of only the peroneal artery'
-S/p right BKA by vascular surgery 12/26
-Pain control, PT/OT, heparin drip
Patient requires a lightweight wheelchair due to ambulatory dysfunction. Patient is unable to self-propel in a standard
wheelchair. A walker has been considered, but is clinically ineffective due to patient's condition.
Patient needs a commode due to confinement to one level of the home environment and there is no toilet on the same level.
Constipation
-No bowel movement since admission, 6 days ago
-Continue MiraLAX twice a day, senna S twice a day
-Magnesium citrate 300 mL x 1
Anti-Thrombin III Deficiency
Medication noncompliance
-Patient previously on Xarelto but stopped taking several months ago
Tobacco Use Disorder
-Encourage smoking cessation, nicotine patch as needed
Anticipated Discharge: Today
Subjective/Interval History
-
Date of Service: January 06, 2024
Objective Data
-
Vital Signs:
Vital Signs
Temp Pulse Resp BP Pulse Ox
98.1 F 62 18 110/64 99
01/06/24 07:47 01/06/24 07:47 01/06/24 07:47 01/06/24 07:47 01/06/24 07:47
I&O
01/05/24 01/06/24 01/07/24
06:59 06:59 06:59
Intake Total 3200 / 3200 1920 / 1920 720 / 720
Balance 3200 / 3200 1920 / 1920 720 / 720
Physical Exam
-
General: Well Developed and No Apparent Distress
HEENT: Normocephalic, Atraumatic and Moist Mucous Membranes
Respiratory: Clear to Auscultation
Cardiac: Regular Rhythm and S1/S2; Negative Murmur, Rub or Gallop
GI: Soft, Nontender, Nondistended and Normal Bowel Sounds; Negative Organomegaly
Rectal: Deferred by Provider
Musculoskeletal: No Clubbing, No Cyanosis and No Edema
Skin: Negative Rash
Neuro: Nonfocal/Grossly Intact
--- NOTE | 2024-01-06 11:33 | CM ---
Addendum entered by Eduardo Stone 01/06/24 15:03:
According to [facility] liaison, DME (wheelchair, commode and a walker)ordered with [facility] DME and will be delivered to pt's home today. Delivery time to be confirmed.
Pt is aware, requested to go home today and she stated her son is at home and she will wait for DME delivery to home and home.
to arrange ambulance, BLS. PMNC completed and left with .
Please fax discharge instructions to [facility] at [phone].
D/C plan: home today with [facility], DME via [facility] and family support.
No other discharge needs identified.
Original Note:
CM following re: discharge planning.
Reviewed pt's chart, met with t.
Pt expressed her negative feelings regarding discharge planning outcomes. CM explained to the pt that her insurance did not approve her for acute level of rehab and now per [place] acute rehab nurse pt does not qualify for acute rehab and PT/OT
recommend home PT/OT. Pt expressed her understanding and anyway expressed her negative feelings.
Pt is aware she will need a wheelchair and BSC at home and when pt is home then PT will order a walker for PT sessions.
A referral to [facility] noted. CM TTed [facility] liaison Loyda and she is working on ordering a wheelchair and BSC. Pt's PCP is Marylin Patricia.
Pt started she has one step to get to the house, and she will not be able to do a step without a walker and pt expressed her concerns regarding getting home safely. Pt is aware that BLS will be arranged to transport pt home safely. Ambulance will be
arranged after [facility] liaison confirmed that a wheelchair and a BSC will be delivered to pt's home. Pt stated she is OK to go home before DME delivered and her son will help as needed.
D/C plan: home with [facility], necessary DME and family support. Ambulance BLS transport will be arranged.
CM will follow to assist pt with discharge home most likely today.
--- NOTE | 2024-01-06 14:06 | VNURNOTE ---
Home Health Liaison met with patient at 1030 to discuss [facility] nurse/therapy, visits, schedule and homebound status. Patient is agreeable and understands that visits at home will be 2-3 x per week to assess and teach medical management.
[facility] brochure provided with contact information. Patient is aware that [facility] will contact her for start of care in 1-2 days after discharge from .
[facility] referral previously completed in [facility].
Patient has not been to PCP since 2018 and they will not agree to sign home health orders, text sent to request Dr Cee to follow patient for initial homecare orders and he is agreeable.
DME ordered = wheelchair, commode and walker from [facility] ([facility] unable to service area).
All information faxed at [phone], notes faxed at [phone]. Confirmation of receipt of all information with Birgit at 1330.
Orderform updated and refaxed at 1400.
Call to patient now to update her with [employer] information.
--- NOTE | 2024-01-06 15:01 | W.DS.TRANS ---
DC Summary - [employer]
-
Discharge Instructions:
Discharge Diagnosis/Procedures Right lower extremity critical limb ischemia,
constipation, Antithrombin III deficiency,
cigarette nicotine dependency
Diet Regular
Activity As tolerated,Do not bear weight R leg
Driving Restrictions Not until seen by your Dr
Bathing Restrictions OK to Shower
Instructions:
Stand-Alone Forms: DC Instr - Vascular OR
Changes to Home Medications: No
Discharge Medications:
DC Medications w/original date entered in [facility]
acetaminophen 325 mg tablet 650 mg PO Q4HPRN PRN mild pain/ fever>100.5F #60 tabs 01/06/24
oxycodone 5 mg tablet 5 mg PO Q4HPRN PRN moderate pain #20 tabs 01/06/24
polyethylene glycol 3350 17 gram oral powder packet (HealthyLax) 17 g PO BID #30 ea 01/06/24
rivaroxaban 20 mg tablet (Xarelto) 20 mg PO QPM #30 tabs 01/06/24
sennosides 8.6 mg-docusate sodium 50 mg tablet (Stool Softener-Stimulant Laxative) 2 tab PO BID #60 tabs 01/06/24
Home Medication Changes
Pending Results: No
[2024-01-06 15:35] VITALS: BP 93/44
[2024-01-06 16:00] VITALS: BP 114/68
[2024-01-06] MEDS: FLUZONE QUAD 2023-2024 SYRINGE 0.5 ML IM (16:19)
[2024-01-06] MEDS: XARELTO 20 MG PO (17:54)
--- NOTE | 2024-01-06 20:02 | PTCARENOTE ---
Patient dc'd home via ambulance stretcher with belongings. DC instructions reviewed by prior RN. No IV access. Patient sttes she undertands instructions.
== END 2024-01-06 20:22 | disposition home health service (06) | DRG 240 ==
LOC: 2 SOUTH 20:12
PROVIDERS: Nurse Practitioner; Nurse Practitioner Acute Care; Physician Assistant Medical; Registered Nurse; ADMITTING PHYSICIAN Family Medicine; ATTENDING PHYSICIAN Internal Medicine; CONSULT PHYSICIAN Physical Medicine & Rehabilitation; CONSULT PHYSICIAN Surgery Vascular Surgery; EMERGENCY PHYSICIAN Emergency Medicine
PROC: B41D1ZZ Fluoroscopy of Aorta and Bilateral Lower Extremity Arteries using Low Osmolar Contrast (ICD-10-PCS; 2023-12-23)
PROC: 0Y6H0Z1 Detachment at Right Lower Leg, High, Open Approach (ICD-10-PCS; 2023-12-26)
PROC: 3E02340 Introduction of Influenza Vaccine into Muscle, Percutaneous Approach (ICD-10-PCS; 2024-01-06)
DX: I70.261 Atherosclerosis of native arteries of extremities with gangrene, right leg (principal); D68.52 Prothrombin gene mutation; L97.519 Non-pressure chronic ulcer of other part of right foot with unspecified severity; F17.210 Nicotine dependence, cigarettes, uncomplicated; M17.12 Unilateral primary osteoarthritis, left knee; M16.11 Unilateral primary osteoarthritis, right hip; K59.00 Constipation, unspecified; Z23 Encounter for immunization; Z79.899 Other long term (current) drug therapy; Z86.718 Personal history of other venous thrombosis and embolism; Z91.148 Patient's other noncompliance with medication regimen for other reason
CPT/HCPCS: 88307; 88311; 27880; 36246; 75625; 75635; 75716; 76937; 80048; 80053; 83735; 85025; 85027; 85610; 85730; 86850; 86900; 86901; 90686; 93005; 93970; 96365; 96366; 97110; 97116; 97162; 97167; 97530; 97535; 97542; 97761; 99285; 99406; G0008; Q9967

== ENCOUNTER → 2024-10-12 11:08 | Outpatient (REF) | payer OTHER, SELFPAY | LOC: RAD 11:08 | PROVIDERS: ATTENDING PHYSICIAN Surgery Vascular Surgery | DX: I73.9 Peripheral vascular disease, unspecified (principal) | CPT/HCPCS: 93922; 93925 ==

== ENCOUNTER 2024-12-29 02:43 | Inpatient (IN) | payer OTHER, SELFPAY ==
[2024-12-28 17:53] VITALS: BP 169/97
--- NOTE | 2024-12-28 17:58 | ED.GENMED ---
ED Provider Triage
<Hansel Griffin Jr., PA-C - Last Filed: 12/28/24 18:33>
-
Patient seen by provider in Triage?: Seen in Triage
Attestation: A medical screening examination has been initiated by a qualified medical provider. Based on the assessment performed at this time, it has been determined that an emergent medical condition may exist and the patient has been informed
that further medical evaluation and possible additional diagnostic testing may be needed.
HPI: 54-year-old female presenting with concerns of abruptly worsening discoloration of her left lower extremity as well as Feeling cold. Does have a history of peripheral arterial disease has had amputations in the past on the right side. Had a
somewhat recent arterial study to the left leg that seem normal. She does follow-up with Dr. Cee. Today symptoms are worsening. Here I am unable to palpate dorsalis pedis or posterior tibialis pulses. With Doppler unable to get dorsalis pedis
or posterior tibialis pulses. Case was immediately discussed with vascular surgery they recommend starting heparin as well as getting a CT angiogram of the aorta with runoff into the left lower extremity with delayed images as well. Patient was
then moved to pod 1 where providers were notified of patient's status.
GENERAL: Alert , in no apparent distress
EYE: No visual abnormalities.
NECK: Trachea midline
ENT: No visible abnormalities.
LUNGS: No acute respiratory distress
NEUROLOGICAL: Alert and oriented
SKIN: Purple discoloration of the left lower extremity distal to the knee
MUSCULOSKELETAL: Moving extremities normally
PSYCH: Normal and appropriate interaction.
This is a medical evaluation conducted in person to initiate diagnostic evaluation and provide initial therapeutics. Please see further documentation by the treating clinician.
History of Present Illness
<Hansel Griffin Jr., PA-C - Last Filed: 12/28/24 18:33>
General
Chief Complaint: Vascular Symptoms
Time Seen by Provider: 12/28/24 18:59
<Cayden Meyer DO - Last Filed: 12/28/24 19:45>
General
Source: patient and records
Exam Limitations: none
Nursing documentation reviewed up to this point in time: agreed with
History of Present Illness
History of Present Illness:
Seen with PA examined independently 54-year-old female hypercoagulable state missed 2 doses of Xarelto status post BKA on the right presents with pain of the left lower extremity, seen in triage brought back immediately CTA ordered vascular surgery
was contacted, heparin was ordered
Past History
<BART Agarwal Jr.-C - Last Filed: 12/28/24 18:33>
Past History
ED Past Medical History: Other ('Thrombotic genetic deficiency') and Other (DVT L LE)
ED Past Surgical History: Gynecological
Social History
Tobacco: Smoker
Personal: Single
Living: with family
Employment: Employed (Works from home)
<Cayden Meyer DO - Last Filed: 12/28/24 19:45>
Social History
Alcohol: None
Drug: None
Review of Systems
<Cayden Meyer DO - Last Filed: 12/28/24 19:45>
Review of Systems
All Other Systems: Not applicable
Musculoskeletal: Reports muscle pain and muscle stiffness
Neurological: Reports numbness; Denies weakness
Endocrine: Reports no symptoms
Phy Exam
<Cayden Meyer DO - Last Filed: 12/28/24 19:45>
Physical Exam
Physical Exam:
Physical Exam
General: no apparent distress, not acutely ill
Neck: No jaw
Heart: s1/s2 regular rate and rhythm, no murmur. equal radial pulses.
Lungs: no acute respiratory distress. clear bilaterally
Abdomen: Soft nontender
Neuro: alert and oriented. no focal neurological deficits
Skin: no rash
Psychiatric: well kept. interactive and cooperative
Extremities: Left lower extremities slightly cool no palpable pulse
Course
<Hansel Griffin Jr., LUPILLO - Last Filed: 12/28/24 18:33>
Orders/Labs/Results
Orders:
Orders
12/28/24 18:22
CT Abd Aorta Angio W/ Run Off Urgent
Comment:
Reason For Exam: left lwr ext ischemic limb, delayed images needed
12/28/24 18:30
Heparin 7,000 units IV NOW STA
Heparin 06268 Units/250 ml 25,000 units in 250 ml IV PER PROTOCOL
Weight to be used for heparin protocol in kilograms (kg):: 87.1
Protocol:: DVT/PE
PTT Goal Range to be used:: PTT 73 to 111 seconds
Order type:: Initial
INITIAL Infusion Dose (UNITS/KG/hr) & then follow protocol:: 18 units/kg/hr
Infusion Dose in UNITS/hr & then follow protocol (UNITS/hr):: 1,600
INFUSION RATE in mL/hr & then follow protocol (mL/hr):: 16
For DVT/PE algorithm, re-bolus for low PTT?: Yes
PTT less than or equal to 64 seconds:: Re-bolus 80 units/kg (max 10,000units). Increase by 300 units/hr
(+ 3mL/hr)
PTT 64.1 to 72.9 seconds:: Re-bolus 40 units/kg (max 5,000 units). Increase by 200 units/hr
(+ 2mL/hr)
PTT 73 to 111 seconds:: Target Range. No change in rate.
PTT 111.1 to 130.9 seconds:: Decrease rate by 200 units/hr (- 2 mL/hr)
PTT 131 to 199.9 seconds:: HOLD for 1 hr. Then decrease by 300 units/hr (- 3mL/hr)
PTT greater than or equal to 200 seconds:: HOLD for 2 hrs & Notify Provider. Then decrease by 300 units/hr
(- 3mL/hr)
Lab follow-up:: Each change, PTT q6h until 2 consecutive are therapeutic. Then
PTT daily.
Nursing to Place Non Medication Order As Directed
Physician Order: PTT 6 hours after initial start of Heparin infusion
Above order entered?: Yes
12/28/24 18:31
CBC/With Diff [Complete Blood Count/With Diff] Urgent
CMP [Comprehensive Metabolic Panel] Urgent
PT/INR [Prothrombin Time] Urgent
PTT Urgent
12/28/24 18:41
Heparin 7,000 units IV PRN PRN
12/28/24 18:42
Heparin 3,500 units IV PRN PRN
12/28/24 19:01
Electrocardiogram (*1) Urgent
Reason for Study: Abdominal Pain
EKG- Treatment ONCE
HYDROmorphone [Dilaudid] 1 mg IV NOW STA
12/28/24 19:18
Type+Screen Urgent
12/28/24 19:31
HYDROmorphone [Dilaudid] 0.25 mg IV PACU-Q5MPRN PRN
HYDROmorphone [Dilaudid] 0.5 mg IV PACU-Q5MPRN PRN
Meperidine [Demerol] 12.5 mg IV PACU-Q5MPRN PRN
Ondansetron Injectable [Zofran] 4 mg IV PACU-ONCEPRN PRN
Prochlorperazine [Compazine] 5 mg IV PACU-ONCEPRN PRN
Notify MD As Directed
Notify physician if: for SDS patients with known or suspected sleep obstructive sleep apnea, monitor in the
PACU.
Notify MD for any apneic/desaturation episodes
O2 Therapy [RESP] Urgent
Titrate/Wean O2 to maintain O2 sat greater than (%): 92
Special Instructions: -Provide supplemental oxygen to achieve O2 sat of 92% or greater.
-After 15 min, may wean O2 and discontinue if patient is able to maintain O2 sat of 92%
or greater during recovery period.
If patient is a discharge home, without oxygen therapy, notify anestheiologist if
unable to maintain O2 SAT of 92% or greater on room air for MD clearance.
12/28/24 19:35
Dexamethasone Sod Phosphate [Decadron] 20 mg .ROUTE .STK-MED ONE
Fentanyl Citrate/Pf [Sublimaze] 100 mcg .ROUTE .STK-MED ONE
Lidocaine 2% Mpf [Xylocaine Mpf 2%] 100 mg .ROUTE .STK-MED ONE
Ondansetron Injectable [Zofran] 4 mg .ROUTE .STK-MED ONE
Propofol [Diprivan] 20 ml .ROUTE .STK-MED
Rocuronium [place] [Rocuronium] 50 mg .ROUTE .STK-MED ONE
12/28/24 19:36
Midazolam HCl [Versed] 2 mg .ROUTE .STK-MED ONE
12/28/24 19:44
Vascular Surgery Consult Urgent
Consulting Provider: Juliette White
Was physician already notified: Yes
12/28/24 19:45
Normosol (Mult Electrolytes) [Normosol-R/Plasmalyte-A] 1,000 ml IV PER PROTOCOL
12/29/24 00:55
PTT Routine
Abnormal Lab Results
12/28/24
18:31
WBC 12.7 H 10^3/uL
(4.8-10.8)
Hct 47.5 H %
(37.0-47.0)
Abs Immat Gran (auto) 0.1 H 10^3/uL
(0-0.05)
Absolute Neuts (auto) 9.2 H 10^3/uL
(1.4-6.5)
Absolute Monos (auto) 1.1 H 10^3/uL
(0.1-0.6)
Lymphocytes % 17.4 L %
(20.5-51.1)
Carbon Dioxide 18 L mmol/L
(22-30)
Glucose 126 H mg/dl
(70-99)
AST 50 H U/L
(14-36)
ALT 57 H U/L
(0-35)
Alkaline Phosphatase 159 H U/L
(38-126)
12/28/24 18:31
12/28/24 18:31
Vital Signs
Initial and Last Documented VS:
Initial Vital Signs
Temp Pulse Resp BP Pulse Ox
97.7 F 90 18 169/97 98
12/28/24 17:53 12/28/24 17:53 12/28/24 17:53 12/28/24 17:53 12/28/24 17:53
Last Documented Vital Signs
Temp Pulse Resp BP Pulse Ox
97.7 F 89 24 169/98 96
12/28/24 17:53 12/28/24 18:45 12/28/24 18:45 12/28/24 18:25 12/28/24 18:30
<Cayden Meyer, DO - Last Filed: 12/28/24 19:45>
Orders/Labs/Results
Orders:
Orders
12/28/24 18:22
CT Abd Aorta Angio W/ Run Off Urgent
Comment:
Reason For Exam: left lwr ext ischemic limb, delayed images needed
12/28/24 18:30
Heparin 7,000 units IV NOW STA
Heparin 14309 Units/250 ml 25,000 units in 250 ml IV PER PROTOCOL
Weight to be used for heparin protocol in kilograms (kg):: 87.1
Protocol:: DVT/PE
PTT Goal Range to be used:: PTT 73 to 111 seconds
Order type:: Initial
INITIAL Infusion Dose (UNITS/KG/hr) & then follow protocol:: 18 units/kg/hr
Infusion Dose in UNITS/hr & then follow protocol (UNITS/hr):: 1,600
INFUSION RATE in mL/hr & then follow protocol (mL/hr):: 16
For DVT/PE algorithm, re-bolus for low PTT?: Yes
PTT less than or equal to 64 seconds:: Re-bolus 80 units/kg (max 10,000units). Increase by 300 units/hr
(+ 3mL/hr)
PTT 64.1 to 72.9 seconds:: Re-bolus 40 units/kg (max 5,000 units). Increase by 200 units/hr
(+ 2mL/hr)
PTT 73 to 111 seconds:: Target Range. No change in rate.
PTT 111.1 to 130.9 seconds:: Decrease rate by 200 units/hr (- 2 mL/hr)
PTT 131 to 199.9 seconds:: HOLD for 1 hr. Then decrease by 300 units/hr (- 3mL/hr)
PTT greater than or equal to 200 seconds:: HOLD for 2 hrs & Notify Provider. Then decrease by 300 units/hr
(- 3mL/hr)
Lab follow-up:: Each change, PTT q6h until 2 consecutive are therapeutic. Then
PTT daily.
Nursing to Place Non Medication Order As Directed
Physician Order: PTT 6 hours after initial start of Heparin infusion
Above order entered?: Yes
12/28/24 18:31
CBC/With Diff [Complete Blood Count/With Diff] Urgent
CMP [Comprehensive Metabolic Panel] Urgent
PT/INR [Prothrombin Time] Urgent
PTT Urgent
12/28/24 18:41
Heparin 7,000 units IV PRN PRN
12/28/24 18:42
Heparin 3,500 units IV PRN PRN
12/28/24 19:01
Electrocardiogram (*1) Urgent
Reason for Study: Abdominal Pain
EKG- Treatment ONCE
HYDROmorphone [Dilaudid] 1 mg IV NOW STA
12/28/24 19:18
Type+Screen Urgent
12/28/24 19:31
HYDROmorphone [Dilaudid] 0.25 mg IV PACU-Q5MPRN PRN
HYDROmorphone [Dilaudid] 0.5 mg IV PACU-Q5MPRN PRN
Meperidine [Demerol] 12.5 mg IV PACU-Q5MPRN PRN
Ondansetron Injectable [Zofran] 4 mg IV PACU-ONCEPRN PRN
Prochlorperazine [Compazine] 5 mg IV PACU-ONCEPRN PRN
Notify MD As Directed
Notify physician if: for SDS patients with known or suspected sleep obstructive sleep apnea, monitor in the
PACU.
Notify MD for any apneic/desaturation episodes
O2 Therapy [RESP] Urgent
Titrate/Wean O2 to maintain O2 sat greater than (%): 92
Special Instructions: -Provide supplemental oxygen to achieve O2 sat of 92% or greater.
-After 15 min, may wean O2 and discontinue if patient is able to maintain O2 sat of 92%
or greater during recovery period.
If patient is a discharge home, without oxygen therapy, notify anestheiologist if
unable to maintain O2 SAT of 92% or greater on room air for MD clearance.
12/28/24 19:35
Dexamethasone Sod Phosphate [Decadron] 20 mg .ROUTE .STK-MED ONE
Fentanyl Citrate/Pf [Sublimaze] 100 mcg .ROUTE .STK-MED ONE
Lidocaine 2% Mpf [Xylocaine Mpf 2%] 100 mg .ROUTE .STK-MED ONE
Ondansetron Injectable [Zofran] 4 mg .ROUTE .STK-MED ONE
Propofol [Diprivan] 20 ml .ROUTE .STK-MED
Rocuronium [place] [Rocuronium] 50 mg .ROUTE .STK-MED ONE
12/28/24 19:36
Midazolam HCl [Versed] 2 mg .ROUTE .STK-MED ONE
12/28/24 19:44
Vascular Surgery Consult Urgent
Consulting Provider: Juliette White
Was physician already notified: Yes
12/28/24 19:45
Normosol (Mult Electrolytes) [Normosol-R/Plasmalyte-A] 1,000 ml IV PER PROTOCOL
12/29/24 00:55
PTT Routine
Abnormal Lab Results
12/28/24
18:31
WBC 12.7 H 10^3/uL
(4.8-10.8)
Hct 47.5 H %
(37.0-47.0)
Abs Immat Gran (auto) 0.1 H 10^3/uL
(0-0.05)
Absolute Neuts (auto) 9.2 H 10^3/uL
(1.4-6.5)
Absolute Monos (auto) 1.1 H 10^3/uL
(0.1-0.6)
Lymphocytes % 17.4 L %
(20.5-51.1)
Carbon Dioxide 18 L mmol/L
(22-30)
Glucose 126 H mg/dl
(70-99)
AST 50 H U/L
(14-36)
ALT 57 H U/L
(0-35)
Alkaline Phosphatase 159 H U/L
(38-126)
12/28/24 18:31
12/28/24 18:31
Vital Signs
Initial and Last Documented VS:
Initial Vital Signs
Temp Pulse Resp BP Pulse Ox
97.7 F 90 18 169/97 98
12/28/24 17:53 12/28/24 17:53 12/28/24 17:53 12/28/24 17:53 12/28/24 17:53
Last Documented Vital Signs
Temp Pulse Resp BP Pulse Ox
97.7 F 89 24 169/98 96
12/28/24 17:53 12/28/24 18:45 12/28/24 18:45 12/28/24 18:25 12/28/24 18:30
<Cayden Meyer DO - Last Filed: 12/28/24 19:45>
MDM/Problems Addressed
Differential Diagnosis Includes:
Arterial insufficiency arterial occlusion limb threatening ischemia med noncompliance
MDM/Problems Addressed:
Limb ischemia
Chronic conditions affecting care:
Hypercoagulable state
Acute Exacerbation and/or Progression of Chronic Illness:
Hypercoagulable state
<Cayden Meyer DO - Last Filed: 12/28/24 19:45>
*Radiology
Radiology exam reviewed: radiology read reviewed
*Pulse Oximetry
Patient hypoxic: no
*EKG
Interpreted by ED Provider?: Yes
Interpretation: normal
Comparison EKG: no comparison EKG present
Heart Rate: 78
Rate: normal
Rhythm: sinus
QRS Pattern: normal QRS
Ischemia: no ischemia
*Computer Repairer Interpretation
Rate: normal
Interpretation: normal
Heart Rate: 78
*Critical Care Note
Total Time (30-74mins, 75-104mins- exclusive of procedures): 46
Data Reviewed
Review of Other/Old Records Reveals: Labs and Discharge Summary
Source: patient
<Cayden Meyer DO - Last Filed: 12/28/24 19:45>
Update Note
Update Note:
CRITICAL CARE STATEMENT: A total of 46 of critical care time was provided for this patient. This includes management of unstable vital signs, evaluation of the patient at bedside, reviewing the patient's pertinent medical records discussion with
EMS providers and patient's family in addition to discussion with consultants, review of old EKGs and review of pertinent medical records. This time with separate from time utilized to perform the aforementioned documented procedures
ED Attending Note
<Hansel Griffin Jr. PAMaryC - Last Filed: 12/28/24 18:33>
-
Portions of this chart may have been created with voice recognition software.� Occasional wrong word or��sound alike� substitutions may have occurred due to the inherent limitations of voice recognition software.
<Cayden Meyer DO - Last Filed: 12/28/24 19:45>
ED Attending Note
Patient seen and examined by attending physician: Yes
I performed the substantive portion of visit, reviewed & personally made and approve the management plan that is documented in note by myself or RAHUL.: Yes
Discharge Plan
Departure
Patient Disposition: Admit
Date of Disposition: 12/28/24
Time of Disposition: 19:35
Admit to: OR
Admit to doctor: maryse
Presentation/result/management discussed w/ accepting MD/DO: Hospitalist
Condition: Critical
Discharge Problem:
Hypercoagulable state, Limb threatening ischemia
Prescriptions:
No Action
Xarelto 20 mg Tablet
20 mg PO QPM Qty: 30 2RF
Referrals:
Homer Cee III, MD [Family Provider] -
Interventions
Interventions:
*ED COVID-19 Vaccine History Last Done: 12/28/24 17:53
ED- Cardiac Assessment Last Done: 12/28/24 18:56
ED- Pulmonary Assessment Last Done: 12/28/24 18:56
ED-Peripheral Vascular Assessment Last Done: 12/28/24 18:56
ED-Skin Assessment Last Done: 12/28/24 18:56
Discharge Date and Time
Print Language: ARMENIAN
--- NOTE | 2024-12-28 18:11 | EDRN ---
No popliteal,post tibial and pedal pulse found by palpation and by Doppler. Sandro Griffin PA-C notified.
--- NOTE | 2024-12-28 18:23 | EDRN ---
+femoral pulse by Doppler only.
[2024-12-28 18:25] VITALS: BP 169/98; BMI 33.0
[2024-12-28 18:38] LABS: % Basophils 0.4 % (0-2); % Eosinophils 0.8 % (0-6); % Immature Granulocytes 0.5 % (0-0.5); % Lymphocytes 17.4 % (20.5-51.1); % Monocytes 8.6 % (1.7-9.3); % Neutrophils 72.3 % (42.2-75.2); Absolute Basophils 0.1 10^3/uL (0-0.2); Absolute Eosinophils 0.1 10^3/uL (0-0.7); Absolute Immature Granulocytes 0.1 10^3/uL (0-0.05); Absolute Lymphocytes 2.2 10^3/uL (1.2-3.4); Absolute Monocytes 1.1 10^3/uL (0.1-0.6); Absolute Neutrophils 9.2 10^3/uL (1.4-6.5); Hematocrit 47.5 % (37.0-47.0); Hemoglobin 15.7 g/dL (12.0-16.0); Mean Corp Hgb Conc. 33.1 g/dL (33.0-37.0); Mean Corpuscular Hgb 29.5 pg (27.0-31.0); Mean Corpuscular Volume 89.3 fL (81.0-99.0); Mean Platelet Volume 9.1 fL (7.4-10.4); Nucleated Red Blood Cells % 0 %; Platelet Count 180 10^3/uL (130-400); Red Blood Cell Count 5.32 10^6/uL (4.20-5.40); Red Cell Dist. Width 12.4 % (11.5-14.5); White Blood Cell Count 12.7 10^3/uL (4.8-10.8)
[2024-12-28 18:47] LABS: INR 0.96; PT 13.1 Sec (11.4-14.6)
[2024-12-28 18:48] LABS: APTT 26.8 Sec (23.4-35.0)
[2024-12-28] MEDS: HEPARIN 7000 UNITS IV (18:55)
[2024-12-28] MEDS: HEPARIN 25000 UNITS/250 ML IV (18:56)
[2024-12-28 19:00] VITALS: BP 145/77
[2024-12-28 19:03] LABS: ALT (SGPT) 57 U/L (0-35); AST (SGOT) 50 U/L (14-36); Albumin 4.1 g/dl (3.5-5.0); Alkaline Phosphatase 159 U/L (38-126); Blood Urea Nitrogen 13 mg/dl (7-17); Calcium 8.9 mg/dl (8.4-10.2); Carbon Dioxide 18 mmol/L (22-30); Estimated Creatinine Clearance 98 ml/min; Glucose 126 mg/dl (70-99); Total Bilirubin 0.5 mg/dl (0.2-1.3); Total Protein 7.7 g/dl (6.3-8.2); eGFR > 60.00
[2024-12-28 19:12] LABS: Chloride 104 mmol/L (98-107); Potassium 3.7 mmol/L (3.5-5.1); Sodium 135 mmol/L (135-145)
[2024-12-28] MEDS: DILAUDID 1 MG IV (19:20)
[2024-12-28 20:00] VITALS: BP 150/89
--- NOTE | 2024-12-28 20:19 | CON.VAS ---
Consultation
Consultation Request
Date/Time Consultation Requested: 12/28/2024
Performing Provider: Christopher
Reason for Consultation: LLE ALI
Medical History
-
Chief Complaint: LLE cold, painful, purple
History of Present Illness:
Acute onset left lower extremity pain at 4 PM today. Progressive discoloration and cyanosis. Numbness to left foot. 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 Missed a few doses of Xarelto recently. History of right lower
extremity thrombosis approximately 1 year ago resulting in below-knee amputation of the right lower extremity. Recent SHANELL in October with SHANELL 0.9 indicating this is a very acute change. CTA today personally reviewed and interpreted by me with
acute occlusion of the abdominal aorta just distal to the MARLEY. The right lower extremity is completely occluded. There is reconstitution of flow in the left external iliac into the common femoral, profunda, and SFA, however there is thrombus down
the left lower extremity as well.
Past Medical History
Past Medical History: Other (Antithrombin III deficiency, smoker)
Past Surgical History: Other (R BKA)
Social History
Tobacco: Smoker
Family History
Family History: Reviewed & Not Pertinent
Allergies / Home Medications
Allergy/AdvReac Type Severity Reaction Status Date / Time
No Known Allergies Allergy Verified 12/28/24 18:01
�Medication �Instructions �Recorded �Confirmed �Type
rivaroxaban 20 mg tablet (Xarelto) 20 mg PO QPM #30 tabs 01/06/24 12/28/24 Rx
Review of Systems
-
History Source: Patient
All other systems: Negative unless noted
Physical Exam
Vital Signs
Temp Pulse Resp BP Pulse Ox
97.7 F 89 24 169/98 96
12/28/24 17:53 12/28/24 18:45 12/28/24 18:45 12/28/24 18:25 12/28/24 18:30
Lab Results
12/28/24 18:31
12/28/24 18:31
Physical Exam
General: Well Developed and Well Nourished
HEENT: Normocephalic and Anicteric
Respiratory: Clear
GI: Soft and Non Tender
Skin: Other (Left leg cold, cyanotic)
Neuro: AO x 3
Pulses: Left Femoral: Doppler (Nonpalpable femoral, no distal signals)
Assessment / Plan
-
54F with acute aortic occlusion and embolization down both legs in setting of noncompliance with Xarelto and Antithrombin III deficiency
Emergency OR for aortobifem and thrombectomies
Heparin gtt
Data Reviewed
-
CT Scan: Image Personally Visualized and interpreted
Labs: Labs Reviewed by me
[2024-12-28 21:41] LABS: ACT-LR - POC 176 Seconds (116-155)
[2024-12-28 21:57] LABS: ACT-LR - POC 332 Seconds (116-155)
--- NOTE | 2024-12-28 22:32 | W.PN.UPDATE ---
Update Note
Progress Note Update
Patient seen in conjunction with GRAHAM. Plan agree with the findings and physical. Tito Orr assessment and plan.
Briefly this is a 54-year-old female with past medical history of Antithrombin III deficiency, history of noncompliance complicated by critical limb ischemia status post right BKA in December 2023 and discharged on Xarelto presents to the emergency
department with progressive discoloration and cyanosis with numbness to left foot. Missed a few doses of Xarelto recently. Recent SHANELL in October with SHANELL 0.9 indicating this is a very acute change.
CTA today with acute occlusion of the abdominal aorta just distal to the MARLEY. The right lower extremity is completely occluded. There is reconstitution of flow in the left external iliac into the common femoral, profunda, and SFA, however there is
thrombus down the left lower extremity as well.
Patient completely taken to the OR by vascular.
On my initial assessment vital signs were stable with a blood pressure of 150/88 pulse of 71, satting 96% on room air. ECG showed normal sinus rhythm at a rate of 92. White count was 12.7 hemoglobin 15.7 platelet 180. Electrolytes BUN/creatinine
are all in the normal range.
Assessment and plan
54-year-old with history of hypercoagulability (Antithrombin III deficiency) presenting to the emergency department with ischemia over the right lower extremity. CT scan as below showing a significant occlusion from the level of the abdominal aorta
just distal to the MARLEY involving bilateral iliacs with complete occlusion on the right lower extremity and reconstitution of flow in the left external iliac into the femoral profunda and SFA. Status post the OR by vascular surgery with aorto-bifem
and thrombectomies
- admit to
-
[2024-12-28 23:10] LABS: ACT-LR - POC 274 Seconds (116-155)
--- NOTE | 2024-12-28 23:25 | HPS.HSE ---
Family Physician
-
Family Physician: Homer Cee
Chief Complaint
-
Leg pain
History of Present Illness
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
department with progressive discoloration and cyanosis with numbness to left foot. Missed a few doses of Xarelto recently. Recent SHANELL in October with SHANELL 0.9 indicating this is a very acute change.
CTA today with acute occlusion of the abdominal aorta just distal to the MARLEY. The right lower extremity is completely occluded. There is reconstitution of flow in the left external iliac into the common femoral, profunda, and SFA, however there is
thrombus down the left lower extremity as well.
Patient immediately taken to the OR by vascular.
On my initial assessment vital signs were stable with a blood pressure of 150/88 pulse of 71, satting 96% on room air. ECG showed normal sinus rhythm at a rate of 92. White count was 12.7 hemoglobin 15.7 platelet 180. Electrolytes BUN/creatinine
are all in the normal range.
Medical History
Past Medical History
Past Medical History: Reports Other
Additional Past Medical History:
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
Anti-Thrombin Deficiency
Past Surgical History: Reports Gynocological and Other (Right BKA)
Social History
Tobacco: Smoker (1 ppd)
Alcohol: Occasional
Drug: None
Family History
Family History: Adopted
Allergies / Home Medications
Allergies reflects when Allergies were last updated in [employer].
Home Medications with original date entered in [employer]
Allergy/Medication List:
Allergies
Allergy/AdvReac Type Severity Reaction Status Date / Time
No Known Allergies Allergy Verified 12/28/24 18:01
Home Medications
rivaroxaban 20 mg tablet (Xarelto) 20 mg PO QPM #30 tabs 01/06/24
Review of Systems
-
A 12 point ROS was completed and negative except as noted: Yes
Constitutional: Denies Fever or Chills
Respiratory: Denies Cough or Trouble Breathing
Cardiac: Denies Chest Pain or Palpitations
Abdomen/GI: Reports No Symptoms
: Reports No Symptoms
Musculoskeletal: Reports Joint Pain
Skin: Reports Rash
Neurological: Reports Numbness
Endocrine: Reports No Symptoms
Hematologic/Lymphatic: Reports No Symptoms
Psych: Reports No Symptoms
Physical Exam
Vital Signs
Vital Signs
Temp Pulse Resp BP Pulse Ox
97.7 F 94 14 150/89 96
12/28/24 17:53 12/28/24 20:15 12/28/24 20:15 12/28/24 20:00 12/28/24 20:15
Physical Exam
General: Comfortable and Conversant
HEENT: Anicteric and Moist mucous membranes
Respiratory: Clear and Non Labored Respirations
Cardiac: S1/S2 and Regular Rhythm
GI: Soft and Non Tender
Rectal: Deferred by Provider
Genito-urinary: Deferred by me
Musculoskeletal: No Clubbing, No Cyanosis and Edema, Right Lower Extremity (BKA)
Skin: Other (Skin discoloration of feet, no pedal pulses, thready popliteal; cold to touch)
Neuro: Awake, Alert and Oriented
Hematologic/Lymphatic: Other (decreased sensation no the right thigh)
Psych: Calm
Laboratory Results
-
12/28/24 18:31
Laboratory Results
PT 13.1 Sec (11.4-14.6) 12/28/24 18:31
INR 0.96 12/28/24 18:31
APTT 26.8 Sec (23.4-35.0) 12/28/24 18:31
Total Bilirubin 0.5 mg/dl (0.2-1.3) 12/28/24 18:31
AST 50 U/L (14-36) H 12/28/24 18:31
ALT 57 U/L (0-35) H 12/28/24 18:31
Alkaline Phosphatase 159 U/L (38-126) H 12/28/24 18:31
Data Reviewed
-
CT Scan: Report Reviewed by me
Lab Data: Labs Reviewed by me
Old Records: Reviewed
Impression/Plan
-
IMPRESSION:
Assessment and plan
54-year-old with history of hypercoagulability (Antithrombin III deficiency) presenting to the emergency department with ischemia over the right lower extremity. CT scan as below showing a significant occlusion from the level of the abdominal aorta
just distal to the MARLEY involving bilateral iliacs with complete occlusion on the right lower extremity and reconstitution of flow in the left external iliac into the femoral profunda and SFA. Status post the OR by vascular surgery with aorto-bifem
and thrombectomies
PLAN:
Vascular occlusion -
- admit to icu for post op management
- revasc per vascular
- continue heparin gtt
- trend lactate
- pain control
- npo for now
- educational assistant consult
- vascular consulted and following
Code Status - Full code
[2024-12-28 23:28] LABS: Glucose - POC 173 mg/dl (70-99); HCO3 - POC 19 mmol/L (21-28); Hematocrit - POC 33 % PCV (37-47); Hemodilution- POC No; Hemoglobin Calculated - POC 11.2; Ionized Calcium - POC 0.94 mmol/L (1.15-1.33); Lactate - POC 2.06 mmol/L (0.36-0.75); O2 Saturation %Calculated-POC 99.9 % (94-98); PCO2 - POC 41 mmHg (35-48); PO2 - POC 286 mmHg (83-108); Potassium - POC 4.5 mmol/L (3.5-5.1); Sodium - POC 137 mmol/L (136-145); Specimen Type - POC Arterial; pH - POC 7.27 (7.35-7.45)
[2024-12-28 23:44] LABS: Hematocrit 35.5 % (37.0-47.0); Hemoglobin 12.1 g/dL (12.0-16.0); Mean Corp Hgb Conc. 34.1 g/dL (33.0-37.0); Mean Corpuscular Hgb 30.6 pg (27.0-31.0); Mean Corpuscular Volume 89.6 fL (81.0-99.0); Mean Platelet Volume 9.3 fL (7.4-10.4); Platelet Count 217 10^3/uL (130-400); Red Blood Cell Count 3.96 10^6/uL (4.20-5.40); Red Cell Dist. Width 12.4 % (11.5-14.5); White Blood Cell Count 17.8 10^3/uL (4.8-10.8)
[2024-12-29] VITALS (31 sets, daily range): BP systolic 60–165; BP diastolic 46–99; BMI 33.7
--- NOTE | 2024-12-29 02:30 | PTCARENOTE ---
Pt arrived to floor from OR post Vascular surgery. Pt AAOx3. Pt moaning in pain. PACU nurses at bedside to assist in recovery. Pain medication administered as ordered. HR 110-120 ST on the monitor. POX 97% on arasol mask with 8 LO2. Lungs dec t/o.
Right Nare NGT in place to low intermittent suction. Hypo bowel, round obese abd. midline abd aquacell surgical dressing intact. B/L groin aquacell surgical dressing intact. Temp sensing Cee in place draining clear yellow urine. Core temp on
arrival 96.1. Right BKA, significant mottling noted to RLE with absence of sensation. LLE aquacell surgical dressing intact, Left middle leg dressing intact. Q1 Neurovascular checks as documented. Very weak Popliteal doppler pulses present. LLE cool
to touch. Sacral foam intact for protection. +1 edema B/L upper thigh edema noted. Right radial Olive in place. Rght hand int infusing Levophed to keep MAP >65. Heparin gtt infusing @1000units/hr via right AC int as ordered. IVF infusing as ordered.
Pt able to make needs known. [address] per MD order to B/L LE. Will continue to monitor.
[2024-12-29] MEDS: DILAUDID 1 MG IV ×5 (02:40→17:33)
[2024-12-29 02:51] LABS: INR 1.14; PT 14.9 Sec (11.4-14.6)
[2024-12-29 03:12] LABS: % Basophils 0.2 % (0-2); % Eosinophils 0.1 % (0-6); % Immature Granulocytes 0.6 % (0-0.5); % Lymphocytes 9.9 % (20.5-51.1); % Monocytes 4.3 % (1.7-9.3); % Neutrophils 84.9 % (42.2-75.2); Absolute Immature Granulocytes 0.1 10^3/uL (0-0.05); Absolute Monocytes 0.9 10^3/uL (0.1-0.6); Absolute Neutrophils 17.5 10^3/uL (1.4-6.5); Hematocrit 41.7 % (37.0-47.0); Hemoglobin 13.9 g/dL (12.0-16.0); Mean Corp Hgb Conc. 33.3 g/dL (33.0-37.0); Mean Corpuscular Hgb 29.5 pg (27.0-31.0); Mean Corpuscular Volume 88.5 fL (81.0-99.0); Mean Platelet Volume 9.5 fL (7.4-10.4); Nucleated Red Blood Cells % 0 %; Platelet Count 267 10^3/uL (130-400); Red Blood Cell Count 4.71 10^6/uL (4.20-5.40); White Blood Cell Count 20.6 10^3/uL (4.8-10.8)
[2024-12-29 03:50] LABS: Lactic Acid 4.6 mmol/L (0.7-2.0)
[2024-12-29 04:16] LABS: Blood Urea Nitrogen 11 mg/dl (7-17); Calcium 6.5 mg/dl (8.4-10.2); Carbon Dioxide 13 mmol/L (22-30); Chloride 105 mmol/L (98-107); Estimated Creatinine Clearance 76 ml/min; Glucose 255 mg/dl (70-99); Potassium 4.3 mmol/L (3.5-5.1); Sodium 136 mmol/L (135-145); eGFR > 60.00
[2024-12-29] MEDS: LEVOPHED 250 IV ×5 (04:30→22:25)
[2024-12-29] MEDS: SODIUM BICARBONATE 1150 MEQ IV ×2 (04:40→21:11)
[2024-12-29] MEDS: CALCIUM GLUCONATE 130 MG IV ×2 (05:11→21:11)
--- NOTE | 2024-12-29 05:38 | DOWNTIME ---
There was a [employer] Client Pipeline Dispatch Operator Downtime on 12/29/2024 from 0100 to 12/29/2023 at 0235 . Downtime documentation of patient's care, including medication administrations, has been reconciled in the electronic record per guidelines. Refer to the
patient's paper chart under the miscellaneous tab to see printed paper medication records and downtime forms.
--- NOTE | 2024-12-29 06:20 | PTCARENOTE ---
Pt reports pain much improved at this time. Core temp 100.1. Dr. Pemberton at bedside to assess pt. NO other changes noted at this time. Will continue to monitor.
[2024-12-29] MEDS: HEPARIN 25000 UNITS/250 ML IV ×2 (06:22→15:58)
[2024-12-29 06:26] LABS: Hematocrit 40.9 % (37.0-47.0); Hemoglobin 13.4 g/dL (12.0-16.0); Mean Corp Hgb Conc. 32.8 g/dL (33.0-37.0); Mean Corpuscular Volume 91.5 fL (81.0-99.0); Mean Platelet Volume 9.7 fL (7.4-10.4); Platelet Count 271 10^3/uL (130-400); Red Blood Cell Count 4.47 10^6/uL (4.20-5.40); Red Cell Dist. Width 13.5 % (11.5-14.5); White Blood Cell Count 23.8 10^3/uL (4.8-10.8)
[2024-12-29 06:35] LABS: INR 1.25
[2024-12-29 06:37] LABS: APTT 113.3 Sec (23.4-35.0)
[2024-12-29 06:38] LABS: Lactic Acid 8.1 mmol/L (0.7-2.0)
--- NOTE | 2024-12-29 07:15 | CON.INTV ---
Consultation
Consultation Request
Date/Time Consultation Requested: 12/29/24
Date/Time Consultation Performed: 12/29/24
Performing Provider: Brent
Reason for Consultation: ICU
Medical History
-
History of Present Illness:
Patient is a 54-year-old female with past medical history of Antithrombin III Deficiency, critical limb ischemia status post right BKA in December 2023 and discharged on Xarelto, history of noncompliance presenting to emergency department with
progressive discoloration, cyanosis and numbness to the left foot. She had admittedly missed a few doses of Xarelto recently. Recent SHANELL in October with SHANELL 0.9 indicating this is a very acute change from prior.
CTA obtained showing acute occlusion of the abdominal aorta just distal to the MARLEY. The right lower extremity is completely occluded. There is reconstitution of flow in the left external iliac into the common femoral, profunda, and SFA, however
there is thrombus down the left lower extremity as well. Patient was immediately taken to the OR by vascular 12/28/24.
Past Medical History
Past Medical History: Other
Social History
Tobacco: Smoker
Alcohol: None
Drug: None
Family History
Family History: Reviewed & Not Pertinent
Allergies / Home Medications
Allergies
Allergy/AdvReac Type Severity Reaction Status Date / Time
No Known Allergies Allergy Verified 12/28/24 18:01
Home Medications
�Medication �Instructions �Recorded �Confirmed �Last Taken �Type
rivaroxaban 20 mg tablet (Xarelto) 20 mg PO QPM #30 tabs 01/06/24 12/28/24 12/26/24 Rx
Review of Systems
-
History Source: Patient
All other systems: Negative unless noted
Vitals / Labs / Diagnostic Testing
Vital Signs
Temp Pulse Resp BP Pulse Ox
100.0 F 125 13 98/81 97
12/29/24 06:00 12/29/24 06:15 12/29/24 06:15 12/29/24 06:15 12/29/24 06:15
Lab Data
12/29/24 06:12
Laboratory Results
12/28/24 12/29/24 12/29/24
18:31 02:20 06:12
PT 13.1 14.9 H 16.0 H
INR 0.96 1.14 1.25
APTT 26.8 115.0 H 113.3 H
Diagnostic Testing:
Physical Exam
-
HEENT: Normocephalic, Anicteric and Moist Mucous Membranes
Cardiovascular: S1/S2 and Regular Rhythm
Respiratory: Clear and Non-Labored Respirations
GI: Soft, Non Distended and Non Tender
Neurology: Awake, Alert, Oriented and No Motor Deficits
Skin: Other (cool, erythema in BL LE, R BKA (stump purple))
General: Pain and Other (NAD)
Assessment
-
Patient is a 54-year-old female with past medical history of Antithrombin III Deficiency, critical limb ischemia status post right BKA in December 2023 and discharged on Xarelto, history of noncompliance presenting to emergency department with
progressive discoloration, cyanosis and numbness to the left foot. She had admittedly missed a few doses of Xarelto recently. Recent SHANELL in October with SHANELL 0.9 indicating this is a very acute change from prior. CTA obtained showing acute
occlusion of the abdominal aorta just distal to the MARLEY. The right lower extremity is completely occluded. There is reconstitution of flow in the left external iliac into the common femoral, profunda, and SFA, however there is thrombus down the
left lower extremity as well. Patient was immediately taken to the OR by vascular 12/28/24.
Critical limb ischemia on R, s/p emergent OR intervention by Vasular 12/28/24
Noncompliance with Xarelto
Conditions present prior to admission
Chronic critical limb threatening ischemia with no meaningful options for revascularization s/p R BKA 12/26/23
Progression since 09/2023
s/p Selective catheterization of second-order RLE artery/Diagnostic aortobiiliac arteriogram/Diagnostic RLE arteriogram/US-guided percutaneous access to the left common femoral artery 12/23/23
Multiple DVTs
Anti-Thrombin Deficiency
Smoker (1 ppd x 40 years)
Obesity BMI 33.6
Noncompliance
Plan
Patient is s/p intervention by vascular surgery service, POD #0
Returning to OR for re-look
Continue observation following procedure
Follow neurovascular checks per protocol
Follow BP monitoring and parameters as set by primary team
Levophed on for MAP goals and perfusion postop
Cardiac history noted--none
Monitor on telemetry
Pain control per protocol
RASS goal 0
No prior history of pulmonary disease, smoking hx includes 1PPD
Possible underlying COPD
No prior chest films or PFTs for review
Encouraged IS
Diet advancement per protocol
Aspiration precautions
GI prophylaxis if indicated for stress ulcer prevention in the critically ill
Creat at baseline, follow UO
Critical I/Os
Void trials
Replete electrolytes as needed
Concern for LE ischemia, on vanc for now
Obtain blood cultures
Follow temperatures/CBC
Hb and platelets postoperatively stable
DVT prophylaxis recommended if not contraindicated based on procedural history -- heparin SQ and mechanical SCDs
Encouraged OOB/PT/OT/ambulation once cleared by surgical team
We will follow
Diagnostic Data
Chest X-Ray:
CT Scan: CTA AP 12/28/24- Minimal dependent atelectasis in the posterior lower lungs. There is no significant pleural effusion and no significant pericardial effusion.
Thrombus is seen originating from the posterior wall of the distal aorta, past origin of the MARLEY, thrombus appears to occlude the lumen of the distal aorta. There is extension of thrombus into the common iliac arteries bilaterally.
LEFT- residual small filling defect/thrombus within the left external iliac artery; left common femoral artery with no filling defect; proximal thigh, there is a short segment of occlusion of the left superficial femoral artery, extending over a
length of 7 cm; there is loss of contrast enhancement at the trifurcation of the left popliteal artery into the anterior tibial artery and posterior tibial/peroneal trunk.
RIGHT- There is however no significant contrast enhancement of the right common femoral artery. There is no significant contrast enhancement of the right superficial femoral artery or the right profunda femoris. No contrast enhancement of the right
popliteal artery or of the arterial branches within the proximal calf--suggesting total occlusion
Echo:
PFT's:
Reports and relevant images were personally reviewed.
Critical Care time 50 mins -- this includes review of history, physical exam, medications, hemodynamic/O2 parameters, laboratory data, imaging and discussions with care team, pharmacy, nursing and patient.
[2024-12-29 07:20] LABS: Blood Urea Nitrogen 11 mg/dl (7-17); Calcium 8.9 mg/dl (8.4-10.2); Carbon Dioxide 12 mmol/L (22-30); Chloride 105 mmol/L (98-107); Estimated Creatinine Clearance 58 ml/min; Glucose 217 mg/dl (70-99); Potassium 4.5 mmol/L (3.5-5.1); Sodium 137 mmol/L (135-145); eGFR 53.79
--- NOTE | 2024-12-29 07:59 | W.PN.HOSP.TC ---
Addendum entered and electronically signed by Kenya Pope MD 12/29/24 08:21:
# XAVI suspect prerenal
SCr 1.2 from 0.9, cont current IVF
Original Note:
Today's Communication/Plan
-
see A/P
Assessment / Plan
Assessment / Plan
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
with progressive discoloration and cyanosis with numbness to left foot. Missed a few doses of Xarelto recently. Recent SHANELL in October with SHANELL 0.9 indicating this is a very acute change.
CTA on DOA showed acute occlusion of the abdominal aorta just distal to the MARLEY. The right lower extremity is completely occluded. There is reconstitution of flow in the left external iliac into the common femoral, profunda, and SFA, however there
is thrombus down the left lower extremity as well.
Patient immediately taken to the OR by vascular.
A/P:
# Critical limb ischemia
# History of Antithrombin III deficiency on Xarelto but non-compliant
# History of right lower extremity thrombosis approximately 1 year ago resulting in below-knee amputation of the right lower extremity.
s/p Emergency OR for aortobifem and thrombectomies
Cont heparin drip per vascular
pain control with IV Dilaudid, PO oxycodone, Tylenol
NPO with NGT per vascular surgery service
# SIRS likely due to critical limb ischemia
# ?distributive shock
unclear if there is infectious component
pt has been started with Abx, escalate from ancef to cefepime and Vanc although doubt acute infection
Check blood culture
Pressor with Levo started post op, cont and wean as tolerated
Follow WBC and trend temp (leucocytosis and fever could be stress response)
# Lactic acidosis likely 2/2 leg ischemia
# Metabolic acidosis
Cont IVF with bicarb
trend lactate
# Acute hypoxic resp insufficiency
Placed on 2-3L NC, wean as tolerated
DVT ppx: heparin drip
Code Status - Full code
DW RN
CC time 40 min
Anticipated Discharge: > 48 hours
Subjective/Interval History
-
Date of Service: December 29, 2024
Objective Data
-
Labs:
Laboratory Results
12/28/24 12/29/24 12/29/24
23:19 02:20 03:16
WBC 17.8 H 20.6 H
Hgb 12.1 D 13.9
Hct 35.5 L 41.7
Plt Count 217 D 267 D
PT 14.9 H
INR 1.14
APTT 115.0 H
Sodium Cancelled 136
Potassium Cancelled 4.3
Chloride Cancelled 105
Carbon Dioxide Cancelled 13 L*
BUN Cancelled 11
Creatinine Cancelled 0.9
Glucose Cancelled 255 H
Calcium Cancelled 6.5 L* D
12/29/24 12/29/24
06:12 12:00
WBC 23.8 H
Hgb 13.4
Hct 40.9
Plt Count 271
PT 16.0 H
INR 1.25
APTT 113.3 H
Sodium 137 Pending
Potassium 4.5 Pending
Chloride 105 Pending
Carbon Dioxide 12 L* Pending
BUN 11 Pending
Creatinine 1.2 H Pending
Glucose 217 H Pending
Calcium 8.9 D Pending
Vital Signs:
Vital Signs
Temp Pulse Resp BP Pulse Ox
38.1 C H 116 14 98/81 97
12/29/24 07:23 12/29/24 07:30 12/29/24 07:30 12/29/24 06:15 12/29/24 07:30
I&O
12/28/24 12/29/24 12/30/24
06:59 06:59 06:59
Intake Total 1095 / 1095
Output Total /
Balance 1010 / 1010
Review of Systems
-
All other systems: Reviewed and negative
Physical Exam
-
General: Well Developed, Well Nourished, Comfortable, Conversant and Appears Chronically Ill
HEENT: Normocephalic, Atraumatic, Moist Mucous Membranes and Oxygen (2-3 L NC)
Respiratory: Clear to Auscultation and Non Labored Respirations; Negative Accessory Resp Muscle Use
Cardiac: Regular Rhythm, S1/S2 and Tachycardic; Negative Murmur, Rub or Gallop
GI: Soft, Nontender, Nondistended and Normal Bowel Sounds; Negative Organomegaly
Rectal: Deferred by Provider
Musculoskeletal: Other (R BKA)
Skin: Other (kasey of LE appear intact )
Neuro: Awake and Alert
Psych: Calm and Intact Judgement/Insight
Data Reviewed
-
Labs: Labs Reviewed by me
--- NOTE | 2024-12-29 08:42 | W.PN.VS ---
Today's Communication / Plan
-
Critically ill female s/p emergent vascular surgery for aorto-iliac occlusion with a background of hypercoagulable state
-Stat CTA A/P/runoff to eval bypass and distal circulation given physical exam findings
-Continue heparin with therapeutic PTT goal
-IVF bolus now, 1 L NS
-Wean pressors as tolerated to keep MAP >65
-Keep NGT in place. NPO
Assessment/Plan
-
Critically ill female s/p emergent vascular surgery for aorto-iliac occlusion with a background of hypercoagulable state
-Stat CTA A/P/runoff to eval bypass and distal circulation given physical exam findings
-Continue heparin with therapeutic PTT goal
-IVF bolus now, 1 L NS
-Wean pressors as tolerated to keep MAP >65
-Keep NGT in place. NPO
Subjective Data
-
Date of Service: December 29, 2024
Extubated
Reports incisional pain
Alert/oriented
Discussed clinical events with bedside nurse
UOP marginal
Lactic acid trending up
No Dopp signals on the right
Pop signal on the left
Objective Data
-
Vital Signs
Temp Pulse Resp BP Pulse Ox
100.7 F H 116 14 98/81 97
12/29/24 08:00 12/29/24 07:30 12/29/24 07:30 12/29/24 06:15 12/29/24 07:30
Intake and Output
12/28/24 12/29/24 12/30/24
06:59 06:59 06:59
Intake Total 1095 / 1315 440 / 440
Output Total 85 / 105 35 / 35
Balance 1010 / 1210 405 / 405
Intake:
IV fluids (Total) 925 / 1145 440 / 440
Heparin gtt 40 / 50 20 / 20
Levophed 285 / 345 120 / 120
Nss 1,000 ml @ 150 mls/hr IV . 300 / 300
Q6H40M MADY Rx#:[id number]
Sterile Water For Injection 300 / 450 300 / 300
1000 ml 1,000 ml @ 150 mls/hr
IV .Q7H40M MADY with Sodium
Bicarbonate 150 Meq Rx#:
[id number]
IV piggybacks 130 / 130
Amount instilled into GI Tube ( 40 / 40
Total)
[place] Sump 40 / 40
Output:
Urine, Cee 85 / 105 35 / 35
Lab Results
12/29/24 06:12
Calcium 8.9 mg/dl (8.4-10.2) D 12/29/24 06:12
Total Bilirubin 0.5 mg/dl (0.2-1.3) 12/28/24 18:31
AST 50 U/L (14-36) H 12/28/24 18:31
ALT 57 U/L (0-35) H 12/28/24 18:31
Alkaline Phosphatase 159 U/L (38-126) H 12/28/24 18:31
Total Protein 7.7 g/dl (6.3-8.2) 12/28/24 18:31
Albumin 4.1 g/dl (3.5-5.0) 12/28/24 18:31
Physical Exam
-
Alert/oriented
NGT in place (clear)
Abd soft, non distended
Dressing clean/dry
B/L LE dressings clean/dry
Right thigh/stump mottled. No Dopp signal audible in groin or pop
Left pop Dopp signal.
Grossly intact motor function to left foot/ankle
No Dopp signal in left foot at DP or PT location
[2024-12-29] MEDS: NSS 1000 IV ×2 (08:45→18:36)
[2024-12-29 08:50] LABS: Glucose - Point of Care 188 mg/dl (70-99)
[2024-12-29] MEDS: NOVOLOG FLEXPEN-LOW RESISTANCE 1 UNITS SC (10:26)
--- NOTE | 2024-12-29 10:30 | W.PN.UPDATE ---
Update Note
Progress Note Update
I personally reviewed the CT angiogram images. On the right her iliac limb is open and she has retrograde flow into the iliac system however the profunda femoral artery outflow appears to be completely thrombosed. This is in keeping with her
physical exam findings over the right thigh and below-knee amputation stump. On the left her iliac limb is open as is the DATABASE MARKETING SPECIALIST/profunda/SFA/pop segment. I do not see flow beyond the distal posterior tibial artery at the ankle. I do not see any
flow into the foot.
My recommendation is immediate return to the operating room for reexploration and thrombectomy of the right groin and the left ankle/posterior tibial exposure. The technical aspects of this procedure were discussed with her and her son (via
telephone) in detail. The benefits and rationale for this approach were discussed with both of them in detail. Operative risks were discussed with them in detail including but not limited to , heart attack, bleeding, stroke, wound healing
complications, infection, continued ischemic limbs, need for additional procedures and possible amputation in the future. I explained that given the current clinical circumstances her risk of limb loss is very high. Both she and her son expressed
a clear understanding of our conversation and agreed to proceed with surgery as detailed above.
Homer Cee III, MD
[facility] Vascular Surgery
[phone] (qdqc)
[2024-12-29 10:37] LABS: Glucose - Point of Care 156 mg/dl (70-99)
[2024-12-29] MEDS: VANCOCIN 540 MG IV (10:42)
--- NOTE | 2024-12-29 10:45 | PTCARENOTE ---
Rec'd care of patient at 0715. Patient alert and oriented. Anxious. ST on tele monitor. Rate in the 110-120's. Levophed infusing @ 16 mcg/min for MAP>65. Right radial jesus leveled and zeroed. Neurovascular checks completed with previous RN. LLE
pink/warm. +Doppler popliteal pulse. Absent dp and pt pulses. On the R BKA, popliteal pulse absent by doppler. Mottled. Severe loss of sensation. Pulse ox 98% on 2L nc. Lung sounds shallow/diminished throughout. RASCON. Hypo BS. Right nare NGT to low
intermittent suction. NPO. Cee in place for critical I/O. Output 15-25 cc's/hr. Bicarb drip infusing through LFA INT. Heparin and Levophed infusing through RAC INT. Left wrist and LAC INTs capped. Dr. Cee contacted about absent pulses, labs,
pressor requirements and decreased urine output. Lactic acid 8.1; bicarb 12; Sales Agent Protective Service increased to 1.2. Dr. Cee at bedside to assess patient. 1L NS bolus and STAT CTA A/P ordered. Repeat labs ordered for 1200. Hospitalist at bedside. Orders for blood
cultures and abx placed.
Around 0900, patient transported to ct scan. Patient c/o increasing pain. Arterial BP 180-190/90's. Levophed titrated to off. PRN Dilaudid administered for pain control. Dr. Cee back at bedside. Plan to return emergently to OR.
--- NOTE | 2024-12-29 10:57 | PTCARENOTE ---
Patient transported to OR.
[2024-12-29 12:04] LABS: ACT-LR - POC 190 Seconds (116-155)
[2024-12-29 12:05] LABS: ACT-LR - POC 158 Seconds (116-155)
[2024-12-29 12:20] LABS: ACT-LR - POC 351 Seconds (116-155)
[2024-12-29 12:28] LABS: APTT 95.5 Sec (23.4-35.0)
[2024-12-29 12:29] LABS: B.E. - POC -5.7 mmol/L; Glucose - POC 166 mg/dl (70-99); HCO3 - POC 21 mmol/L (21-28); Hematocrit - POC 34 % PCV (37-47); Hemodilution- POC No; Hemoglobin Calculated - POC 11.7; Ionized Calcium - POC 0.89 mmol/L (1.15-1.33); Lactate - POC 5.09 mmol/L (0.36-0.75); O2 Saturation %Calculated-POC 99.7 % (94-98); PCO2 - POC 45 mmHg (35-48); PO2 - POC 215 mmHg (83-108); Potassium - POC 5.4 mmol/L (3.5-5.1); Sodium - POC 140 mmol/L (136-145); Specimen Type - POC Arterial; pH - POC 7.28 (7.35-7.45)
[2024-12-29 13:21] LABS: ACT-LR - POC 313 Seconds (116-155)
[2024-12-29 14:08] LABS: B.E. - POC -2.1 mmol/L; Glucose - POC 173 mg/dl (70-99); HCO3 - POC 23 mmol/L (21-28); Hematocrit - POC 31 % PCV (37-47); Hemodilution- POC Yes; Hemoglobin Calculated - POC 10.4; Ionized Calcium - POC 0.88 mmol/L (1.15-1.33); Lactate - POC 2.95 mmol/L (0.36-0.75); O2 Saturation %Calculated-POC 99.8 % (94-98); PCO2 - POC 40 mmHg (35-48); PO2 - POC 248 mmHg (83-108); Potassium - POC 5.7 mmol/L (3.5-5.1); Sodium - POC 140 mmol/L (136-145); Specimen Type - POC Arterial; pH - POC 7.37 (7.35-7.45)
[2024-12-29 14:40] LABS: Blood Urea Nitrogen 13 mg/dl (7-17); Calcium 6.5 mg/dl (8.4-10.2); Carbon Dioxide 20 mmol/L (22-30); Chloride 104 mmol/L (98-107); Estimated Creatinine Clearance 53 ml/min; Glucose 158 mg/dl (70-99); Potassium 5.3 mmol/L (3.5-5.1); Sodium 136 mmol/L (135-145); eGFR 48.87
--- NOTE | 2024-12-29 15:10 | W.IMMPOSTOP ---
Surgical Immed Post Op Note
-
Primary Surgeon: Coleman
Assisting Surgeon: Estefany
Pre-op Diagnosis: Aortic occlusion with acute left lower extremity ischemia
Post-op Diagnosis: Aortic occlusion with acute left lower extremity ischemia
Procedure Performed: Thrombectomy of R profunda femoral artery, L tibial artery
Anesthesia Type: General
Specimen / Cultures: None
Estimated Blood Loss: 50 cc
Complications: None
Operative Findings: Thrombectomy of R profunda femoral artery, L tibial artery. Reexploration of R groin and L ankle.
--- NOTE | 2024-12-29 15:13 | CM ---
CM following re: discharge planning.
Discussed in rounds, reviewed pt's chart, met with pt.
Pt is a 54 year old female, admitted with primary dx of Aortic occlusion with acute left lower extremity ischemia, went to OR today.
Pt lives with son in a 2SH, 2 steps to enter, stays on the 1st floor. Pt ambulates with a walker, has a wheelchair, BSC.
PT and OT will evaluate the pt to determine a level of care at discharge.
Pharmacy: [facility]
D/C plan: uncertain at this time and will depend on pt's progress.
CM will follow with discharge plan updates as hospitalization progresses
[2024-12-29] MEDS: NOVOLOG FLEXPEN-LOW RESISTANCE SC ×2 (15:14→18:48)
--- NOTE | 2024-12-29 15:59 | PHA.VAN.IN ---
Assessment
- Assessment
Renal Function: Appears elevated from baseline (0.6)
Concomitant Antimicrobials: cefepime
Plan
- Plan
Initial / Loading Dose: vanc 2000mg
Maintenance Regimen: dosing by level due to XAVI
Monitoring: random level 12/30 599
Pharmacokinetics Vancomycin I
- -
Patient Age: 54
Patient Sex: Female
Vancomycin Day #: 1
Indication: Other
Requesting Provider: Dr. Pope
Pertinent Antimicrobial Allergies:
no pertinent antimicrobial allergies
Height / Weight:
Height 5 ft 4 in
Actual Weight 88.9 kg
Pertinent Past Medical History: R BKA
- Vital Signs / Lab Results
Temp Pulse Resp BP Pulse Ox
100.0 F 114 11 126/93 99
12/29/24 10:00 12/29/24 15:30 12/29/24 15:30 12/29/24 11:00 12/29/24 15:30
Lab Results - Hematology
12/28/24 12/28/24 12/29/24
18:31 23:19 02:20
WBC 12.7 H 17.8 H 20.6 H
12/29/24
06:12
WBC 23.8 H
Lab Results - Chemistry
12/28/24 12/29/24 12/29/24
18:31 02:20 03:16
BUN 13 Cancelled 11
Creatinine 0.7 Cancelled 0.9
Estimated Creat Clear 98 Cancelled 76
Albumin 4.1
12/29/24 12/29/24
06:12 12:00
BUN 11 13
Creatinine 1.2 H 1.3 H
Estimated Creat Clear 58 53
Albumin
12/29/24 12/29/24
02:20 06:12
Lactic Acid 4.6 H* 8.1 H*
--- NOTE | 2024-12-29 16:14 | PTCARENOTE ---
Rec'd patient as a direct back from OR around 1530. Patient resting comfortably. Drowsy. ST on tele. Left radial jesus zeroed and transduced. Levophed remains off. Pulse ox 100% on 7L simple mask. Lung sounds diminished. Cee draining yellow urine.
No BM. Neurovascular checks as followed: LLE +popliteal and pt doppler pulses. Pale, warm, cap refill >2 sec. Sensation normal. Right BK absent doppler pulse. Mottled, cap refill >2 sec. Abdominal and b/l groin aquacell dressings intact. Right thigh
LEXI drain with sanguineous output. LLE dressing with moderate drainage. Vascular surgery resident at bedside to reinforce dressing. Heparin and Bicarb drips infusing through RIJ triple lumen cath. PTT ordered for 1800. VSS. Core temp 99.0. Rosalba
huggers placed back on per Vascular surgeon.
--- NOTE | 2024-12-29 16:51 | PTCARENOTE ---
Levophed drip restarted for MAP <65.
--- NOTE | 2024-12-29 17:55 | PTCARENOTE ---
Levophed quickly titrated up to 22 mcg/min in order to maintain MAP>65. Right thigh LEXI drain dressing saturated. Total output since post op- 235 cc's of sanguineous drainage. Dr. Cee updated.
--- NOTE | 2024-12-29 18:27 | OR.RPT ---
Operative Report
Operative Report
Date of Operation: 12/29/2024
Pre Op Diagnosis:
1. Ongoing right lower extremity ischemia
2. Left foot ischemia
3. Acute aortoiliac occlusion and bilateral acute limb ischemia status post emergent aortobifemoral bypass
Post Op Diagnosis:
1. Ongoing right lower extremity ischemia
2. Left foot ischemia
3. Acute aortoiliac occlusion and bilateral acute limb ischemia status post emergent aortobifemoral bypass
Procedure:
1. Reexploration right groin
2. Profunda femoral artery thrombectomy
3. Reexploration left posterior tibial artery at the ankle
4. Posterior tibial artery thrombectomy
Surgeon: Homer Cee III, MD
Boiler Testing Technician: Giovanni Allison MD PGY1
Anesthesia: General
Complications: None
Estimated Blood Loss: 100 cc
History and Indications for Procedure: 54-year-old female who is POD#0 from emergent aortobifemoral bypass for acute limb ischemia secondary to acute aorto-iliac occlusion. She has ongoing ischemia to her right lower extremity and left foot by
physical exam and confirmed with cross-sectional imaging. I brought her back to the OR for re-exploration.
Procedure in Detail: Susan Nguyen was correctly identified and placed supine on the operating table. After adequate induction of anesthesia her abdomen, pelvis and bilateral lower extremities were prepped and draped in the usual sterile
fashion. She received preoperative antibiotics. A timeout procedure was performed with the nursing and anesthesia staff confirming the patient's identity as well as the nature and laterality of the procedure.
I started the procedure by reexploring the right groin. [place] and subcutaneous sutures were removed. Self-retaining retractor was placed and I exposed the right femoral anastomosis. The stump of occluded superficial femoral artery was
identified. The anastomosis to the common femoral and profunda femoral artery was identified. There was a strong pulse in the graft, nikolski common femoral artery and distal external iliac artery. There was no pulse or Doppler signal in the
profunda femoral artery beyond the anastomosis. I obtained proximal control on the graft as well as the distal nikolski external iliac artery with vessel loops. I continued careful sharp dissection distally on the profunda femoral artery, exposing
another several centimeters and associated branches. The more distal artery was soft but no pulse was palpable. Distal control was obtained with vessel loops.
Systemic heparin was administered and a therapeutic ACT was confirmed. I secured the proximal vessel loops. I started by making a transverse incision on the distal lewis of the graft. I did not identify any thrombus upon opening the graft. The
artery lumen was inspected and was intact with no disruption or dissection identified at that level. The I temporarily released the proximal vessel loops and there was brisk pulsatile inflow. The vessel loops were resecured. I passed a #3 Giovanny
catheter distally down the profunda femoral artery. I was only able to pass this limited distance before I encountered significant resistance. On the initial sweep I returned some chronic appearing thrombus but did not return any additional
thrombus on subsequent passes. There was little to no backbleeding from the profunda femoral artery. I then attempted to pass a #2 Giovanny catheter distally but was met with similar resistance and could not pass the catheter any further than the
#3. At this point I closed the transverse incision in the graft with a running 5-0 Prolene suture. In an effort to more closely examine the distal profunda I made a transverse arteriotomy on the nikolski profunda femoral artery further distal.
Again there was a little to no backbleeding from this segment. The back wall of the artery was intact and there was no dissection identified. I temporarily released the proximal vessel loops again and there was brisk pulsatile inflow evident
through the profunda arteriotomy. I flushed proximally with heparinized saline solution and resecured the vessel loops. From this profunda femoral arteriotomy I then again attempted to pass #2 and #3 Giovanny catheters but was met with the same
resistance and inability to pass either catheter to any meaningful degree. No additional thrombus was returned. Very sluggish backbleeding was identified after several passes of the Giovanny catheters. I flushed distally with heparinized saline
solution and there was resistance. Finally I injected 5 mg of tPA locally into the distal profunda femoral artery. The arteriotomy was repaired primarily with interrupted 7-0 Prolene sutures. I then released the vessel loops. All suture lines
were closely inspected for hemostasis which was achieved. There was a strong pulse in the graft as well as the common femoral artery and distal external iliac artery. A waterhammer pulse was identified in the very proximal profunda femoral artery
but no pulse or Doppler signal was audible in the more distal profunda femoral artery. I placed a silk tie more distally on the occluded superficial femoral artery stump and sent the proximal aspect of the superficial femoral artery to pathology for
examination. I packed the right groin incision with gauze and focused my attention on the left foot.
I removed the kasey and subcutaneous sutures from the left ankle incision. I exposed the posterior tibial artery once again. Several arteriotomy site closures with Prolene suture were identified at this level on the posterior tibial artery.
There was no pulse in the posterior tibial artery at this level but a pulse was palpable a few centimeters proximal to this area. Proximal and distal control was obtained with vessel loops. I removed 7-0 Prolene sutures from one of the arteriotomy
sites. Thrombus was removed from the lumen of the artery. I then passed a #2 Giovanny catheter proximally. I returned a small amount of thrombus from the initial pass and restored pulsatile inflow through the posterior tibial artery. Subsequent
passes returned no additional thrombus. The proximal artery was flushed with heparinized saline solution and the vessel loop resecured. I then passed the #2 Giovanny catheter distally. On the initial pass I returned a small amount of thrombus. I
was able to pass the catheter well into the foot. Sluggish backbleeding was established following passage of the Giovanny catheter. Additional passes of the catheter returned no additional thrombus. I then flushed the distal posterior tibial
artery with heparinized saline solution and an additional 5 mg of tPA. The arteriotomy was closed primarily with interrupted 7-0 Prolene sutures. The vessel loops were released. At this point a pulse was reestablished in the posterior tibial
artery. A waterhammer Doppler signal was audible in the posterior tibial artery at the level of exposure and further distally on the skin below the incision. The suture lines were closely inspected for hemostasis which was achieved.
Both the right groin and the left ankle incisions were inspected for hemostasis which was achieved. The wounds were both irrigated with saline solution. In the right groin a 19 Jason drain was left and brought out through a separate stab incision
at the skin. The right groin wound was then closed in layers and a sterile dressing was applied. The left ankle incision similarly was closed in layers and sterile dressings were applied.
At the conclusion of the case the patient had a waterhammer Doppler signal in the posterior tibial artery location distal to the incision in the left foot. The patient had mottling of the right thigh and amputation stump with no Doppler signal
identified.
Attestation: I was present and responsible for the entire procedure
Signed:
Homer Cee III, MD
[facility] Vascular Surgery
[phone] (cell)
[2024-12-29 18:31] LABS: Glucose - Point of Care 300 mg/dl (70-99)
--- NOTE | 2024-12-29 18:40 | PTCARENOTE ---
Addendum entered by Felicitas Beach RN 12/29/24 18:42:
BS 300. 10 units Novolog ordered.
Original Note:
Dr. Cee at bedside. 1L NS. CVP monitoring. OFFICE ADMIN for pain control. Repeat labs.
[2024-12-29] MEDS: NOVOLOG FLEXPEN 10 UNITS SC (18:41)
[2024-12-29 18:42] LABS: Hematocrit 25.2 % (37.0-47.0); Hemoglobin 8.5 g/dL (12.0-16.0); Mean Corp Hgb Conc. 33.7 g/dL (33.0-37.0); Mean Corpuscular Hgb 29.8 pg (27.0-31.0); Mean Corpuscular Volume 88.4 fL (81.0-99.0); Mean Platelet Volume 10.4 fL (7.4-10.4); Platelet Count 212 10^3/uL (130-400); Red Blood Cell Count 2.85 10^6/uL (4.20-5.40); Red Cell Dist. Width 13.7 % (11.5-14.5); White Blood Cell Count 19.1 10^3/uL (4.8-10.8)
[2024-12-29 18:43] LABS: Lactic Acid 7.4 mmol/L (0.7-2.0)
[2024-12-29] MEDS: MAXIPIME 1000 MG IV (18:53)
[2024-12-29] MEDS: STERILE WATER FOR INJECTION 10 ML IV (18:53)
--- NOTE | 2024-12-29 18:58 | PTCARENOTE ---
GRAHAM notified of resulted labs. Hgb down to 8.5. Lactic 7.4.
[2024-12-29 19:05] LABS: APTT > 200 Sec (23.4-35.0)
--- NOTE | 2024-12-29 19:30 | PTCARENOTE ---
manager programming, pt aaox3, anxious, c/o pain in RLE- 0.5mg IV dilaudid x 1 given- SENIOR REACTOR OPERATOR ordered. RIJ WNL- Levo gtt/Bicarb infusing per work list, heparin gtt currently on hold. Porsche lee leveled & zeroed. NV checks as documented on work list. Sat 100%
on 2LNC. R dht to LIWS. Cee draining minimal amt yellow urine. care ongoing.
[2024-12-29] MEDS: DILAUDID 0.5 MG IV (19:31)
[2024-12-29 19:55] LABS: Blood Urea Nitrogen 15 mg/dl (7-17); Calcium 6.6 mg/dl (8.4-10.2); Carbon Dioxide 15 mmol/L (22-30); Chloride 105 mmol/L (98-107); Estimated Creatinine Clearance 46 ml/min; Glucose 267 mg/dl (70-99); Sodium 133 mmol/L (135-145); eGFR 41.16
[2024-12-29] MEDS: DILAUDID PCA 30 IV (20:16)
[2024-12-29] MEDS: D5/0.45%NACL 1000 IV (20:30)
--- NOTE | 2024-12-29 21:00 | PTCARENOTE ---
BP labile in 60s, Levo maxed, BDoughertyNP aware. H&H to lab.
[2024-12-29 21:45] LABS: Hemoglobin 5.5 g/dL (12.0-16.0)
[2024-12-30] VITALS (16 sets, daily range): BP systolic 88–144; BP diastolic 52–86; BMI 37.6
[2024-12-30 00:06] LABS: Glucose - Point of Care 193 mg/dl (70-99)
[2024-12-30] MEDS: NOVOLOG FLEXPEN-MODERATE RESISTANCE 1 UNITS SC ×2 (00:12→12:08)
[2024-12-30 01:02] LABS: Hematocrit 31.6 % (37.0-47.0)
[2024-12-30 01:17] LABS: Lactic Acid 6.1 mmol/L (0.7-2.0)
[2024-12-30] MEDS: ZOFRAN 4 MG IV ×2 (01:35→08:08)
[2024-12-30] MEDS: LEVOPHED 250 IV (01:35)
--- NOTE | 2024-12-30 02:00 | PTCARENOTE ---
2u PRBC, 2u FFP admin. levo gtt weaned down to off.
[2024-12-30 03:51] LABS: Lactic Acid 3.2 mmol/L (0.7-2.0)
--- NOTE | 2024-12-30 04:00 | PTCARENOTE ---
pt with intermittent nausea, zofran last given 0135, NGT flushed/verified patency. pt unsure if Dilaudid is causing the nausea. to discuss with this am. no further changes.
--- NOTE | 2024-12-30 04:01 | W.PN.UPDATE ---
Update Note
Progress Note Update
Patient received 2 units of FFP and RBCs overnight.
[2024-12-30 04:04] LABS: APTT 107.3 Sec (23.4-35.0)
[2024-12-30 04:06] LABS: % Basophils 0.1 % (0-2); % Immature Granulocytes 0.6 % (0-0.5); % Lymphocytes 18.8 % (20.5-51.1); % Monocytes 13.6 % (1.7-9.3); % Neutrophils 66.9 % (42.2-75.2); Absolute Immature Granulocytes 0.1 10^3/uL (0-0.05); Absolute Lymphocytes 3.2 10^3/uL (1.2-3.4); Absolute Monocytes 2.3 10^3/uL (0.1-0.6); Absolute Neutrophils 11.3 10^3/uL (1.4-6.5); Hematocrit 26.7 % (37.0-47.0); Hemoglobin 9.4 g/dL (12.0-16.0); Mean Corp Hgb Conc. 35.2 g/dL (33.0-37.0); Mean Corpuscular Hgb 30.9 pg (27.0-31.0); Mean Corpuscular Volume 87.8 fL (81.0-99.0); Mean Platelet Volume 10.4 fL (7.4-10.4); Nucleated Red Blood Cells % 0.2 %; Platelet Count 118 10^3/uL (130-400); Red Blood Cell Count 3.04 10^6/uL (4.20-5.40); Red Cell Dist. Width 12.9 % (11.5-14.5); White Blood Cell Count 16.9 10^3/uL (4.8-10.8)
[2024-12-30 04:20] LABS: Vancomycin Random 17.5 ug/ml
[2024-12-30 04:26] LABS: Blood Urea Nitrogen 21 mg/dl (7-17); Calcium 6.6 mg/dl (8.4-10.2); Carbon Dioxide 24 mmol/L (22-30); Chloride 100 mmol/L (98-107); Estimated Creatinine Clearance 35 ml/min; Glucose 130 mg/dl (70-99); Magnesium 1.9 mg/dl (1.6-2.3); Potassium 4.2 mmol/L (3.5-5.1); Sodium 133 mmol/L (135-145); eGFR 29.14
[2024-12-30] MEDS: CALCIUM GLUCONATE 290 MG IV (06:01)
[2024-12-30] MEDS: STERILE WATER FOR INJECTION 10 ML IV ×2 (06:01→17:41)
[2024-12-30] MEDS: MAXIPIME 1000 MG IV ×2 (06:02→17:41)
[2024-12-30] MEDS: NOVOLOG FLEXPEN-MODERATE RESISTANCE SC ×2 (06:02→17:42)
--- NOTE | 2024-12-30 07:15 | W.PN.INTV ---
Today's Communication / Plan
Recommendations
OR attempts reviewed, plan to likely return again for 3rd time
Overall prognosis is poor given her attempts at intervention
Transfuse further as indicated, remains on IV heparin
Pain control for now, supportive care
Assessment
-
Patient is a 54-year-old female with past medical history of Antithrombin III Deficiency, critical limb ischemia status post right BKA in December 2023 and discharged on Xarelto, history of noncompliance presenting to emergency department with
progressive discoloration, cyanosis and numbness to the left foot. She had admittedly missed a few doses of Xarelto recently. Recent SHANELL in October with SHANELL 0.9 indicating this is a very acute change from prior. CTA obtained showing acute
occlusion of the abdominal aorta just distal to the MARLEY. The right lower extremity is completely occluded. There is reconstitution of flow in the left external iliac into the common femoral, profunda, and SFA, however there is thrombus down the
left lower extremity as well. Patient was immediately taken to the OR by vascular 12/28/24.
Critical limb ischemia on R, s/p emergent OR intervention by Vascular
s/p Reexploration right groin/Profunda femoral artery thrombectomy/Reexploration left posterior tibial artery at the ankle/Posterior tibial artery thrombectomy 12/29/24
s/p Aortobifemoral bypass/Right femoral endarterectomy with profundoplasty/Left femoral popliteal thromboembolectomy/Left posterior tibial thrombectomy/Four-compartment fasciotomy 12/28/24
Noncompliance with Xarelto
Conditions present prior to admission
Chronic critical limb threatening ischemia with no meaningful options for revascularization s/p R BKA 12/26/23
Progression since 09/2023
s/p Selective catheterization of second-order RLE artery/Diagnostic aortobiiliac arteriogram/Diagnostic RLE arteriogram/US-guided percutaneous access to the left common femoral artery 12/23/23
Multiple DVTs
Anti-Thrombin Deficiency
Smoker (1 ppd x 40 years)
Obesity BMI 33.6
Noncompliance
Plan
Patient is s/p intervention by vascular surgery service, POD #1
Possible return to OR for further amputation of RLE
Continue observation following procedure
Follow neurovascular checks per protocol
Follow BP monitoring and parameters as set by primary team
Levophed on for MAP goals and perfusion postop
Cardiac history noted--none
Monitor on telemetry
Weaned off pressors
Pain control per protocol
RASS goal 0
No prior history of pulmonary disease, smoking hx includes 1PPD
Possible underlying COPD
No prior chest films or PFTs for review, can repeat if needed
Encouraged IS
Nebs PRN
Diet advancement per protocol
Aspiration precautions
GI prophylaxis if indicated for stress ulcer prevention in the critically ill
Creat at baseline, follow UO
Critical I/Os
Void trials
Replete electrolytes as needed
Concern for LE ischemia, on vanc for now
Obtain blood cultures
Follow temperatures/CBC
Narrow abx or stop and observe per team
Hb and platelets postoperatively stable
Transfused for hb drop, 3 units
Remains on IV heparin
Follow CBC
DVT prophylaxis recommended if not contraindicated based on procedural history -- heparin IV and mechanical SCDs
Encouraged OOB/PT/OT/ambulation once cleared by surgical team
Overall prognosis appears poor given multiple attempts to intervene on her extremities
Tenuous situation
Diagnostic Data
Chest X-Ray:
CT Scan: CTA AP 12/28/24- Minimal dependent atelectasis in the posterior lower lungs. There is no significant pleural effusion and no significant pericardial effusion.
Thrombus is seen originating from the posterior wall of the distal aorta, past origin of the MARLEY, thrombus appears to occlude the lumen of the distal aorta. There is extension of thrombus into the common iliac arteries bilaterally.
LEFT- residual small filling defect/thrombus within the left external iliac artery; left common femoral artery with no filling defect; proximal thigh, there is a short segment of occlusion of the left superficial femoral artery, extending over a
length of 7 cm; there is loss of contrast enhancement at the trifurcation of the left popliteal artery into the anterior tibial artery and posterior tibial/peroneal trunk.
RIGHT- There is however no significant contrast enhancement of the right common femoral artery. There is no significant contrast enhancement of the right superficial femoral artery or the right profunda femoris. No contrast enhancement of the right
popliteal artery or of the arterial branches within the proximal calf--suggesting total occlusion
Echo:
PFT's:
Reports and relevant images were personally reviewed.
Critical Care time 45 mins -- this includes review of history, physical exam, medications, hemodynamic/O2 parameters, laboratory data, imaging and discussions with care team, pharmacy, nursing and patient.
Subjective Dataa
Subjective Data
Date of Service:
Date of Service: December 30, 2024
Chief Complaint: Supplier Specialist Follow Up
Subjective:
s/p OR 12/29, bilateral thrombectomy
overnight required low dose levophed, off this AM
bleeding at groin noted, transfused 3 units, 2 units FFP
Objective Data
Data Reviewed
Vital Signs / I&O / Oxygen:
Vital Signs
Temp Pulse Resp BP Pulse Ox
99.1 F 100 22 98/64 100
12/30/24 06:00 12/30/24 06:45 12/30/24 06:45 12/30/24 04:00 12/30/24 06:45
Intake and Output
12/29/24 12/30/24 12/31/24
06:59 06:59 06:59
Intake Total 1095 / 1315 6684.5 / 6684.5
Output Total 85 / 105 1137 / 1137
Balance 1010 / 1210 5547.5 / 5547.5
SaO2 100
Nasal Cannula flow liters per 2
minute
Physical Exam
General: Pain and Other (NAD)
HEENT: Normocephalic, Anicteric and Moist Mucous Membranes
Cardiovascular: S1-S2 and Regular Rhythm
Respiratory: Clear and Non-Labored Respirations
GI: Soft, Non Distended and Non Tender
Neurology: Awake, Alert and Oriented
Skin: Warm, Dry and Other (mottling, cyanosis of limbs)
Labs/Micro/Reports
Lab Data
12/30/24 03:26
12/30/24 03:26
Laboratory Results
12/29/24 12/29/24 12/30/24
12:00 18:22 03:26
APTT 95.5 H > 200 H* 107.3 H
--- NOTE | 2024-12-30 07:38 | W.PN.VS ---
Addendum entered and electronically signed by Logan Ponce MD 12/30/24 11:37:
Seen and examined with DILIA Montes De Oca and DILIA Bunch earlier this a.m. Findings and plan as noted and discussed below. Continued mottled [place] 3 ischemic nonblanching insensate below the knee amputation stump on the right side. Some mottling in the
thigh as well. LEXI drainage now scant, but significant drainage overnight. No obvious right lower extremity hematoma. Left lower extremity dressings all clean and dry. Dopplerable waterhammer type distal posterior tibial signal. Left foot with
reasonable capillary refill and pink toe nailbeds. Motor and sensory function intact left foot. Plan/as extensively discussed and outlined below. I am not sure that there is viable options for the right lower extremity given lack of ability to
establish profound outflow. Without outflow she runs the risk of not healing [id number] amputation (that would be the only option at this point). In this setting would likely require hip disarticulation (not performed by us, but by orthopedics
in general, and may require transfer to facility that performs).
Original Note:
Today's Communication / Plan
-
Seen and assessed with .
Assessment/Plan
-
POD 2 Critically ill female s/p emergent vascular surgery for aorto-iliac occlusion with a background of hypercoagulable state
POD 1 Thrombectomy
-Continue heparin with therapeutic PTT goal
-IVF bolus 1 L
-Keep NGT in place. NPO
-Change Dilaudid to morphine PATIENT DAY COORDINATOR for nausea
-Nephrology consult, decrease in urine output, rising creatinine
-Redraw all labs at 1030
-Right groin ultrasound to assess patency of graft
Subjective Data
-
Date of Service: December 30, 2024
Patient stated bedside exam with Dr. Ponce. Patient complains of mild abdominal discomfort and burping. Patient states her pain medication is making her nauseous. Patient received 2 units of packed red blood cells and 2 units of FFP overnight. Off
Levophed at this time.
Objective Data
-
Vital Signs
Temp Pulse Resp BP Pulse Ox
99.1 F 100 22 98/64 100
12/30/24 06:00 12/30/24 06:45 12/30/24 06:45 12/30/24 04:00 12/30/24 06:45
Intake and Output
12/29/24 12/30/24 12/31/24
06:59 06:59 06:59
Intake Total 1095 / 1315 6684.5 / 6684.5
Output Total 85 / 105 1137 / 1137
Balance 1010 / 1210 5547.5 / 5547.5
Intake:
IV fluids (Total) 925 / 1145 4954.5 / 4954.5
BOLUS 1000 / 1000
D5/0.45%NaCl 1,000 ml @ 40 mls/ 380 / 380
hr IV .Q24H PRN Rx#:[id number]
Heparin gtt 40 / 50 143 / 143
Levophed 285 / 345 931.5 / 931.5
Nss 1,000 ml @ 150 mls/hr IV . 300 / 300
Q6H40M MADY Rx#:[id number]
Sterile Water For Injection 300 / 450 2500 / 2500
1000 ml 1,000 ml @ 150 mls/hr
IV .Q7H40M MADY with Sodium
Bicarbonate 150 Meq Rx#:
[id number]
IV piggybacks 130 / 130 920 / 920
Amount instilled into GI Tube ( 40 / 40 60 / 60
Total)
Evangeline Sump 40 / 40 60 / 60
Blood Product Amount Infused ( 750 / 750
mL)
Ffp24 Divided Unit Part 1 Unit 250 / 250
[id number]
Packed Rbc Leukoreduced Unit 250 / 250
[id number]
Packed Rbc Leukoreduced Unit 250 / 250
[id number]
Output:
Drain Output (Total) 480 / 480
Right Upper Leg Ruben-Reynolds 480 / 480
Urine, Cee 85 / 105 657 / 657
Calcium 6.6 mg/dl (8.4-10.2) L* 12/30/24 03:26
Magnesium 1.9 mg/dl (1.6-2.3) 12/30/24 03:26
Total Bilirubin 0.5 mg/dl (0.2-1.3) 12/28/24 18:31
AST 50 U/L (14-36) H 12/28/24 18:31
ALT 57 U/L (0-35) H 12/28/24 18:31
Alkaline Phosphatase 159 U/L (38-126) H 12/28/24 18:31
Total Protein 7.7 g/dl (6.3-8.2) 12/28/24 18:31
Albumin 4.1 g/dl (3.5-5.0) 12/28/24 18:31
Physical Exam
-
AAOx3
No tachypnea on room air
Slightly tachycardic [address] in [address]-60 cc overnight
Abdominal dressing clean, dry, intact, soft, mildly distended
LEXI drain 480 cc overnight, slow down significant this morning
Right groin dressing was reinforced overnight appears dry this morning
Left groin dressing clean, dry, intact
Left leg warm, PT Doppler signal +
Right stump site ecchymotic to the hip, warm, patient admits stump is numb throughout
[2024-12-30] MEDS: NSS 1000 IV (08:08)
--- NOTE | 2024-12-30 08:25 | W.PN.HOSP.TC ---
Today's Communication/Plan
-
see A/P
Assessment / Plan
Assessment / Plan
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
with progressive discoloration and cyanosis with numbness to left foot. Missed a few doses of Xarelto recently. Recent SHANELL in October with SHANELL 0.9 indicating this is a very acute change.
CTA on DOA showed acute occlusion of the abdominal aorta just distal to the MARLEY. The right lower extremity is completely occluded. There is reconstitution of flow in the left external iliac into the common femoral, profunda, and SFA, however there
is thrombus down the left lower extremity as well.
Patient immediately taken to the OR by vascular.
A/P:
# Critical limb ischemia
# History of Antithrombin III deficiency on Xarelto but non-compliant
# History of right lower extremity thrombosis approximately 1 year ago resulting in below-knee amputation of the right lower extremity.
s/p Emergency OR for aortobifem and thrombectomies 12/29/2024
Right groin ultrasound to assess patency of graft
Cont heparin drip per vascular
Keep NGT and NPO
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
# Acute blood loss anemia suspect 2/2 procedure
Patient received 2 units of FFP and 3 units RBCs
Hgb 9.4 today, cont to trend
# XAVI suspect prerenal
SCr baseline 0.9, increased to 2.0 today
Nephrology consult for decrease in urine output and rising creatinine
# SIRS likely due to critical limb ischemia
# ?distributive shock, resolved
unclear if there is infectious component or not
pt has been started with Abx, escalated from ancef to cefepime and Vanc although doubt acute infection
follow blood culture
Off Levo
Follow WBC and trend temp (leucocytosis and fever could be stress response)
# Lactic acidosis likely 2/2 leg ischemia
# Metabolic acidosis, resolved
Cont IVF, defer to renal for IVF choice
trend lactate , improved to 3.2 today
# Acute hypoxic resp insufficiency
Cont O2 support at 2-3L NC
DVT ppx: heparin drip
Code Status - Full code
DW RN
CC time 40 min
Anticipated Discharge: > 48 hours
Subjective/Interval History
-
Date of Service: December 30, 2024
Objective Data
-
Labs:
Laboratory Results
12/29/24 12/30/24 12/30/24
21:28 00:36 03:26
WBC 16.9 H
Hgb 5.5 L* D 11.0 L D 9.4 L
Hct 17.0 L* 31.6 L 26.7 L
Plt Count 118 L D
APTT 107.3 H
Sodium 133 L
Potassium 4.2
Chloride 100
Carbon Dioxide 24
BUN 21 H
Creatinine 2.0 H
Glucose 130 H
Calcium 6.6 L*
Total Bilirubin
AST
ALT
Alkaline Phosphatase
12/30/24
10:30
WBC Pending
Hgb Pending
Hct Pending
Plt Count Pending
APTT Pending
Sodium Pending
Potassium Pending
Chloride Pending
Carbon Dioxide Pending
BUN Pending
Creatinine Pending
Glucose Pending
Calcium Pending
Total Bilirubin Pending
AST Pending
ALT Pending
Alkaline Phosphatase Pending
Vital Signs:
Vital Signs
Temp Pulse Resp BP Pulse Ox
37.3 C 109 22 108/73 100
12/30/24 08:00 12/30/24 08:00 12/30/24 08:00 12/30/24 08:00 12/30/24 08:00
I&O
12/29/24 12/30/24 12/31/24
06:59 06:59 06:59
Intake Total 1095 / 1315 6684.5 / 6831.5 1294 / 1294
Output Total 85 / 105 1137 / 1142
Balance 1010 / 1210 5547.5 / 5689.5 1284 / 1284
Review of Systems
-
Abdomen/GI: Reports Nausea
Physical Exam
-
General: Well Developed, Well Nourished, Comfortable, Conversant and Appears Chronically Ill
HEENT: Normocephalic, Atraumatic, Moist Mucous Membranes and Oxygen (2-3 L NC)
Respiratory: Clear to Auscultation and Non Labored Respirations; Negative Accessory Resp Muscle Use
Cardiac: Regular Rhythm, S1/S2 and Tachycardic; Negative Murmur, Rub or Gallop
GI: Soft, Nontender, Nondistended and Normal Bowel Sounds; Negative Organomegaly
Rectal: Deferred by Provider
Musculoskeletal: Other (R BKA)
Skin: Other (kasey of LE appear intact )
Neuro: Awake and Alert
Psych: Calm and Intact Judgement/Insight
Data Reviewed
-
Labs: Labs Reviewed by me
[2024-12-30] MEDS: MORPHINE PCA 30 IV (09:02)
--- NOTE | 2024-12-30 09:09 | PHA.VAN.FU ---
Vancomycin Assessment / Plan
- Assessment
Renal Function: SCR Increasing
WBC's are: Trending Down
In the past 24 hrs, patient has been: Afebrile
Concomitant Antimicrobials: cefepime
- Assessment - Therapeutic Drug Monitoring
Random Level: 17.5 - drawn ~16.5H after 2g loading dose
- Dosing Plan
Dosing by Level: Hold off on dosing today
- Monitoring Plan
Random Level: 12/31 06
- Follow Up
Pharmacy will continue to follow.
Vancomycin Follow UP
- -
Patient Age: 54
Patient Sex: Female
Vancomycin Day #: 2
Indication: Other
Requesting Provider: Dr. Pope
Pertinent Antimicrobial Allergies:
NKDA
Height / Weight:
Height 5 ft 4 in
Actual Weight 88.9 kg
Pertinent Past Medical History: R BKA
- Vital Signs / Lab Results
Temp Pulse Resp BP Pulse Ox
99.2 F 109 22 108/73 100
12/30/24 08:00 12/30/24 08:00 12/30/24 08:00 12/30/24 08:00 12/30/24 08:00
Lab Results - Hematology
12/28/24 12/28/24 12/29/24
18:31 23:19 02:20
WBC 12.7 H 17.8 H 20.6 H
12/29/24 12/29/24 12/30/24
06:12 18:22 03:26
WBC 23.8 H 19.1 H 16.9 H
Lab Results - Chemistry
12/28/24 12/29/24 12/29/24
18:31 02:20 03:16
BUN 13 Cancelled 11
Creatinine 0.7 Cancelled 0.9
Estimated Creat Clear 98 Cancelled 76
Albumin 4.1
12/29/24 12/29/24 12/29/24
06:12 12:00 18:22
BUN 11 13 15
Creatinine 1.2 H 1.3 H 1.5 H
Estimated Creat Clear 58 53 46
Albumin
12/30/24
03:26
BUN 21 H
Creatinine 2.0 H
Estimated Creat Clear 35
Albumin
12/29/24 12/29/24 12/29/24
02:20 06:12 12:00
Lactic Acid 4.6 H* 8.1 H* Cancelled
12/29/24 12/30/24 12/30/24
18:22 00:36 03:26
Lactic Acid 7.4 H* 6.1 H* 3.2 H
Therapeutic Drug Monitoring
Random Vancomycin 17.5 ug/ml 12/30/24 03:26
[2024-12-30 11:12] LABS: APTT 77.3 Sec (23.4-35.0)
[2024-12-30 11:14] LABS: Hematocrit 21.4 % (37.0-47.0); Hemoglobin 7.7 g/dL (12.0-16.0); Mean Corpuscular Hgb 31.3 pg (27.0-31.0); Mean Platelet Volume 10.5 fL (7.4-10.4); Platelet Count 107 10^3/uL (130-400); Red Blood Cell Count 2.46 10^6/uL (4.20-5.40); Red Cell Dist. Width 13.1 % (11.5-14.5); White Blood Cell Count 15.8 10^3/uL (4.8-10.8)
[2024-12-30 11:31] LABS: ALT (SGPT) 54 U/L (0-35); AST (SGOT) 286 U/L (14-36); Albumin 1.8 g/dl (3.5-5.0); Alkaline Phosphatase 57 U/L (38-126); Blood Urea Nitrogen 25 mg/dl (7-17); Calcium 6.8 mg/dl (8.4-10.2); Carbon Dioxide 30 mmol/L (22-30); Chloride 100 mmol/L (98-107); Estimated Creatinine Clearance 29 ml/min; Glucose 134 mg/dl (70-99); Lactic Acid 1.4 mmol/L (0.7-2.0); Magnesium 1.8 mg/dl (1.6-2.3); Phosphorus 5.2 mg/dl (2.5-4.5); Potassium 4.5 mmol/L (3.5-5.1); Sodium 132 mmol/L (135-145); Total Bilirubin 0.7 mg/dl (0.2-1.3); Total Protein 3.7 g/dl (6.3-8.2); eGFR 23.41
--- NOTE | 2024-12-30 11:47 | W.CON.NEPH ---
Consultation
-
Date/Time Consultation Requested: December 30, 2024 at 7 AM
Date/Time Consultation Performed: December 30, 2024 at 9 AM
Requesting Provider: Dr. Pope
Performing Provider: Dr. Salazar
Reason for Consultation: Acute kidney injury
Medical History
-
Chief Complaint: Acute kidney injury
History of Present Illness:
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
progressive discoloration and cyanosis with numbness to left foot. Missed a few doses of Xarelto recently.
CTA showed acute occlusion of the abdominal aorta just distal to the MARLEY. The right lower extremity is completely occluded with reconstitution of flow in the left external iliac into the common femoral, profunda, and SFA. thrombus down the left
lower extremity as well.
She would urgently taken to OR by vascular for aortobifem and thrombectomies 12/29/2024
She has acute blood loss with a hemoglobin of 5.5. Significant hypotension with a systolic blood pressure in the 60s with decreasing urine output.
Renal consult for acute kidney injury with a creatinine of 2.4 with a baseline of 0.9
Past Medical History
Antithrombin III deficiency, history of noncompliance complicated by critical limb ischemia status post right BKA in December 2023
Social History
Tobacco: Non-Smoker
Alcohol: None
Family History
Family History: Not Pertinent
Allergies / Home Medications
Allergy/AdvReac Type Severity Reaction Status Date / Time
No Known Allergies Allergy Verified 12/28/24 18:01
�Medication �Instructions �Recorded �Confirmed �Type
rivaroxaban 20 mg tablet (Xarelto) 20 mg PO QPM #30 tabs 01/06/24 12/28/24 Rx
Review of Systems
-
Pain of her lower extremities no shortness of breath or chest pain
All other systems: Negative unless noted
Physical Exam
Vital Signs
Vital Signs
Temp Pulse Resp BP Pulse Ox
99.2 F 109 22 97/61 96
12/30/24 08:00 12/30/24 11:30 12/30/24 11:30 12/30/24 11:19 12/30/24 10:30
Lab Results
WBC 15.8 10^3/uL (4.8-10.8) H 12/30/24 10:49
RBC 2.46 10^6/uL (4.20-5.40) L 12/30/24 10:49
Hgb 7.7 g/dL (12.0-16.0) L 12/30/24 10:49
Hct 21.4 % (37.0-47.0) L 12/30/24 10:49
Plt Count 107 10^3/uL (130-400) L 12/30/24 10:49
Sodium 132 mmol/L (135-145) L 12/30/24 10:49
Potassium 4.5 mmol/L (3.5-5.1) 12/30/24 10:49
Chloride 100 mmol/L (98-107) 12/30/24 10:49
Carbon Dioxide 30 mmol/L (22-30) 12/30/24 10:49
BUN 25 mg/dl (7-17) H 12/30/24 10:49
Creatinine 2.4 mg/dL (0.6-1.0) H 12/30/24 10:49
eGFR 23.41 12/30/24 10:49
Glucose 134 mg/dl (70-99) H 12/30/24 10:49
Calcium 6.8 mg/dl (8.4-10.2) L* 12/30/24 10:49
Phosphorus 5.2 mg/dl (2.5-4.5) H 12/30/24 10:49
Albumin 1.8 g/dl (3.5-5.0) L D 12/30/24 10:49
Physical Exam
General no acute distress
HEENT no cephalic atraumatic extraocular muscle intact no scleral icterus no JVD neck supple
lungs clear to auscultation bilateral
heart regular S1-S2 positive
abdomen soft nontender positive bowel sounds
extremities right lower extremity BKA
Neurologically nonfocal alert and oriented x 3
Skin no lesions no abrasions no petechiae
Psych normal affect no bizarre behavior
Data Reviewed
-
CT Scan: Report Reviewed by me
Labs: Labs Reviewed by me, Discussed with Physician and Discussed with Nurse
Critical Care Time (in minutes): 35
Assessment/Plan
-
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
progressive discoloration and cyanosis with numbness to left foot. Missed a few doses of Xarelto recently.
CTA showed acute occlusion of the abdominal aorta just distal to the MARLEY. The right lower extremity is completely occluded with reconstitution of flow in the left external iliac into the common femoral, profunda, and SFA. thrombus down the left
lower extremity as well.
She would urgently taken to OR by vascular for aortobifem and thrombectomies 12/29/2024
She has acute blood loss with a hemoglobin of 5.5. Significant hypotension with a systolic blood pressure in the 60s with decreasing urine output.
Renal consult for acute kidney injury with a creatinine of 2.4 with a baseline of 0.9
Impression.
Acute kidney injury secondary to hemodynamic instability blood loss hemoglobin of 5.5 hypotension likely early ATN.
Acute lower extremity ischemia status post revascularization.
Antithrombin III deficiency.
Acute metabolic acidosis with lactic acidosis peaked at 8.1 currently down to 1.4.
Plan.
She received IV bicarbonate with improved acidosis lactate has resolved.
Start lactated Ringer's.
She is oliguric with weight gain since admission. Blood pressure remains soft we will continue supportive care with pressors and IV fluids.
Consider loop diuretic over the next 12 to 24 hours.
Discussed with the patient about possibilities of dialysis if she does not have improved urine output. She is understanding of our discussion.
Renal dose all medications for GFR of less than 10
Suggested changing from morphine to Dilaudid as well will defer to vascular or primary to order
Would repeat labs this evening.
Total Time Spent with Patient (in minutes): 35
[2024-12-30 11:50] LABS: Glucose - Point of Care 151 mg/dl (70-99)
[2024-12-30] MEDS: LR 1000 IV (12:08)
[2024-12-30 12:11] LABS: Creatine Phosphokinase 23018 U/L (30-135)
[2024-12-30] MEDS: CALCIUM GLUCONATE 100 IV (13:05)
--- NOTE | 2024-12-30 13:44 | W.PN.INTV ---
Today's Communication / Plan
Recommendations
Patient to return to OR today
Pain Control
Electrolyte and RBC repletion as needed
Fluids for XAVI 2/2 ATN
Assessment
-
Patient is a 54 year old female with a past medical history of antithrombin-III deficiency and peripheral arterial disease who presented to ED 2 days ago with suddenly progressive discoloration and cyanosis of the left foot. In ED, PT and DP
pulses not palpable, and CT angiogram exhibited complete occlusion of the RLE and thrombus within the distal aorta with extension into the bilateral iliacs and lower extremities. Patient with immediate operative intervention and subsequent
thrombectomy. Admitted to the ICU for q1h neurovascular checks and pressor support of soft blood pressures.
Assessment
Critical Limb Ischemia
Aortoiliac Thrombosis
Acute Blood Loss Anemia
XAVI Likely 2/2 ATN
Lactic Acidosis
Acute Hypoxic Respiratory Insufficiency
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
Chronic critical limb threatening ischemia with no meaningful options for revascularization s/p R BKA 12/26/23
Progression since 09/2023
s/p Selective catheterization of second-order RLE artery/Diagnostic aortobiiliac arteriogram/Diagnostic RLE arteriogram/US-guided percutaneous access to the left common femoral artery 12/23/23
Multiple DVTs
Anti-Thrombin Deficiency
Smoker (1 ppd x 40 years)
Obesity BMI 33.6
Noncompliance
Plan
Neuro
q1h neurovascular checks
RASS goal 0
Pain not controlled today; likely 2/2 reperfusion pain
- Full dose Acetominphen for mild pain
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
- Defer decision to start Gabapentin to Vascular team
Cardiovascular
BP monitoring; Levophed for MAP goal> 65 and perfusion in the postanesthesia setting
Respiratory
No history of pulmonary disease but 1PPD for 40 years
Consider CXR vs CT Chest prior to discharge or on outpatient basis
Smoking Cessation Counseling
Incentive Spirometry
Tachypnea likely 2/2 pain; pain control as above.
Gastrointestinal
NG Tube and NPO as patient may require additional trips to OR
Aspiration Precautions
Start Famotidine for GI prophylaxis in the setting of patient acuity, stress, blood losses
Follow Cr in the setting of likely ATN
Nephrology Following
Voiding Trials and Electrolyte Repletion as Needed
Infectious Disease
Blood Cultures Negative for 24 hours
1 Day of Vancomycin and Cefepime, though doubt infection
Consider discontinuation or narrowing of antibiotic choices
Follow temperature curve/WBC
Heme/Onc
Received 3U pRBC so far, 1 post operative and 2 in the ICU
Currently on Heparin Drip at 7U/hr
PTT to be closely monitored
Consult Heme/onc for AC recommendations in the setting of ATIIID
NPO/FullCode/Heparin
Subjective Dataa
Subjective Data
Date of Service:
Date of Service: December 30, 2024
Chief Complaint: Clay Burner Follow Up
Subjective:
Critically ill female with PMHx of AT3 deficiency who is POD#2 emergent vascular surgery for aorto-iliac occlusion and POD#1 for thrombectomy. Patient continues to have pain in the left lower extremity, that waxes and wanes. Also complains of nausea
with pain medication.
Review of Systems
General: Fever (n) and Pain
Cardiopulmonary: Dyspnea (n) and Chest Pain (n)
GI: Abdominal Pain (n)
Objective Data
Data Reviewed
Vital Signs / I&O / Oxygen:
Vital Signs
Temp Pulse Resp BP Pulse Ox
98.2 F 115 19 88/58 97
12/30/24 13:30 12/30/24 13:30 12/30/24 13:30 12/30/24 13:30 12/30/24 13:30
Intake and Output
12/29/24 12/30/24 12/31/24
06:59 06:59 06:59
Intake Total 1095 / 1315 6684.5 / 6831.5 1953
Output Total 85 / 105 1137 / 1142
Balance 1010 / 1210 5547.5 / 5689.5 1928
SaO2 97
Nasal Cannula flow liters per 2
minute
Physical Exam
General: Respiratory Distress (n), Pain (waxing and waning) and Fever (n)
HEENT: Normocephalic, Anicteric and Other (NG tube in place)
Cardiovascular: S1-S2, Regular Rhythm, Murmur (n), Rub (n) and Other (mild tachycardia)
Respiratory: Clear, Wheeze (n), Crackles (n), Rhonchi (n) and Other (mild tachypnea)
GI: Soft, Distended, Non Tender and Normal Bowel Sounds
Neurology: Awake, Alert, AO x 3 and No Motor Deficits
Skin: Warm and Other (Abdominal dressing clean, dry, intact; LEXI drain draining progressively less; Right groin dressing appears dry. LLE dressing intact with mild swelling distal, but good color and pulses positive )
Labs/Micro/Reports
Lab Data
12/30/24 10:49
12/30/24 10:49
Laboratory Results
12/29/24 12/30/24 12/30/24
18:22 03:26 10:49
APTT > 200 H* 107.3 H 77.3 H
Microbiology
12/29/24 10:42 Blood/Venous Blood Culture - Preliminary
No Growth in 24 hours- Final report to follow
--- NOTE | 2024-12-30 14:22 | W.PN.ANS.POP ---
Anesthesia Post Operative
- Anesthesia Post Op Note
Vital Signs Stable-See Nursing Note: Yes (patient being treated for low blood pressure with pressors and PRBCs)
Airway Patent: Yes
Adequate Pain Control: Yes
Change in Mental Status: No
Current Postoperative Nausea & Vomiting: No
Anesthesia Complications: No
General Anesthetic Recall: No
Unplanned Admission: No
Post Op Hydration Adequate: Yes
[2024-12-30] MEDS: DILAUDID PCA 30 IV (14:44)
[2024-12-30 15:17] LABS: Glycohemoglobin (HgbA1c) 5.5 % (4.0-5.6)
--- NOTE | 2024-12-30 17:33 | W.PN.UPDATE ---
Update Note
Progress Note Update
I discussed with patient her anatomy based on imaging and operative findings by my colleagues. Discussed that she did not have a discernible target outflow of the performed on the right lower extremity. Therefore his thigh and below the knee site
are ischemic. There is not really any great viable option for revascularization here. I discussed that with her. Therefore the option would be to attempt an [id number] amputation, but more likely she would need a hip disarticulation.
Discussed with her that we do not perform those here, and therefore would require transfer to a facility that could do that or at least evaluate her for that. She will discuss over with her son. She is fully understanding and appreciative.
[2024-12-30 17:48] LABS: Glucose - Point of Care 133 mg/dl (70-99)
--- NOTE | 2024-12-30 18:00 | PTCARENOTE ---
0700- Rec'd care of patient. Patient alert and oriented. Anxious. SUPERVISOR EVAPORATOR pump for pain control. ST on tele. +Doppler dp, pt and popliteal pulses on LLE. Absent popliteal pulse on R BKA. Mottled. No capillary refill. Pulse ox 100% on 2Lnc. Hypo BS.
Right nare [place] sump to low intermittent suction. C/o nausea. Zofran administered. Cee in place for critical I/O. Output 5 cc/hr. Midline, b/l groin, LLE incisions covered with aquacell dressings. Right thigh LEXI drain with scant sanguineous
drainage. Heparin/Bicarb/SUPERVISOR EVAPORATOR infusing through RIJ triple lumen. CVP monitoring on. Left radial jesus leveled and zeroed. Levophed remains off. Vascular surgery team at bedside. Plan of care discussed. Duplex ultrasound of the aorta and iliac
arteries ordered. Additional 1L NS bolus ordered and administered. Nephrology consulted. Repeat labs ordered for 1030. Patient c/o nausea from SUPERVISOR EVAPORATOR pump. Drip changed to Morphine.
1130- Patient washed and repositioned for comfort. Right BKA observed to be developing blisters. Vascular OUTCOMES ANALYST notified.
1145- Repeat labs resulted. Hgb 7.7, Hct 21.4. 2 units PRBCs ordered. Heparin drip therapeutic. Ca 6.8- 2gram repletion ordered. CPK- [id number]. Seismograph Computer up to 2.4. Urine output 0 cc/hr. Grocery Team Member notified. Repeat labs ordered for 1800. IV Lasix and IVFs
ordered for post administration of blood products. No other changes.
1445- SUPERVISOR EVAPORATOR pump transitioned back to Dilaudid due to kidney function. Patient stating pain controlled at current time.
1600- No major changes in assessment. Patient resting comfortably. Neurovascular checks unchanged. Right BKA blistering worsened. Automation Tech at bedside to discuss plan of care/ possible transfer to tertiary center with patient. Patient requesting
to discuss with son prior to making a decision.
1700- 2 units PRBCs transfused. Vitals stable. Dr. Ponce at bedside to discuss options with patient. Patient discussed with son. Patient agreeable to transfer to tertiary center. Dr. Ponce, Hospitalist and Automation Tech notified.
--- NOTE | 2024-12-30 19:30 | PTCARENOTE ---
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 L omar AL WNL. Sat 94% on 2LNC. R NGT to LIWS. Cee with no UO- IV lasix given now per JAN order. NV checks as
documented on work list. POC discussed with pt- tx to tertiary care center in progress, BDoughertyNP at bedside to update pt and her son. care ongoing. call chowdary with pt.
[2024-12-30] MEDS: LASIX 120 MG IV (19:34)
[2024-12-30] MEDS: LR IV ×2 (19:35→19:38)
[2024-12-30 19:53] LABS: Hematocrit 29.8 % (37.0-47.0); Hemoglobin 10.5 g/dL (12.0-16.0); Mean Corp Hgb Conc. 35.5 g/dL (33.0-37.0); Mean Corpuscular Hgb 30.1 pg (27.0-31.0); Mean Corpuscular Volume 84.8 fL (81.0-99.0); Mean Platelet Volume 10.3 fL (7.4-10.4); Platelet Count 88 10^3/uL (130-400); Red Blood Cell Count 3.49 10^6/uL (4.20-5.40); Red Cell Dist. Width 13.9 % (11.5-14.5)
[2024-12-30 20:21] LABS: Blood Urea Nitrogen 30 mg/dl (7-17); Calcium 6.9 mg/dl (8.4-10.2); Carbon Dioxide 27 mmol/L (22-30); Chloride 100 mmol/L (98-107); Estimated Creatinine Clearance 25 ml/min; Glucose 132 mg/dl (70-99); Magnesium 1.9 mg/dl (1.6-2.3); Potassium 5.1 mmol/L (3.5-5.1); Sodium 130 mmol/L (135-145); eGFR 17.91
[2024-12-30] MEDS: D5/0.45%NACL 1000 IV (21:12)
--- NOTE | 2024-12-30 21:33 | W.PN.UPDATE ---
Update Note
Progress Note Update
I had spoken to hospitalist about transfer to tertiary care facility re: needing R hip disarticulation. Favored soon transfer given metabolic derangements and progression of ischemic changes/mottling to right limb (including thigh).
I directly spoke to [facility] and spoke to Dr. Mariscal at [facility] at length relaying patient history, and he was willing to accept the case, but thought should be run by orthopedics to see if that would be better mode of transfer for
hip disarticulation. Was connected to Dr. Moody, orthopedics and spoke to him regarding patient history and rec for R hip disarticulation at this point. He accepted patient - patient to be transferred to [facility] to SICU.
Plan relayed to hospitalist.
[2024-12-30] MEDS: COMPAZINE 10 MG IV (22:36)
--- NOTE | 2024-12-30 23:08 | PTCARENOTE ---
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 no changes in assessment.
[2024-12-30 23:53] LABS: Glucose - Point of Care 133 mg/dl (70-99)
[2024-12-31] VITALS: BP 106/68
[2024-12-31] MEDS: NOVOLOG FLEXPEN-MODERATE RESISTANCE SC (00:14)
--- NOTE | 2024-12-31 01:50 | PTCARENOTE ---
vss, tx team to bedside, pt tx to P.
--- NOTE | 2024-12-31 16:18 | W.DCSUMMARY ---
Discharge Summary
Discharge Data
Date of Admission: 12/29/24
Date of Discharge: 12/30/24
-
Pending Results: No
Hospital Course
Principal Diagnosis:
Left lower extremity critical limb ischemia
Acute blood loss anemia post op
Acute kidney injury (XAVI) suspect prerenal.
SIRS likely due to critical limb ischemia and possible distributive shock.
Lactic acidosis likely 2/2 leg ischemia with metabolic acidosis.
Chronic Diagnoses:�
Antithrombin III deficiency
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
History of right lower extremity thrombosis approximately 1 year ago resulting in below-knee amputation of the right lower extremity.
Consultations:�
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
Vascular surgery
Nephrology
Procedures:�
Emergency OR for aortobifem and thrombectomies 12/29/2024 by vascular surgery
Clinical course:�
This is a 54-year-old female with past medical history as stated above, who apparently missed a few doses of home Xarelto, presented to the hospital with progressive discoloration, cyanosis and numbness of her left foot.
She was immediately taken to the OR by vascular surgery for critical limb ischemia.
Problem 1:
Left lower extremity critical limb ischemia.
This is in setting of antithrombin III deficiency but not compliant with Xarelto.
The patient underwent emergent OR for aortobifem and thrombectomies on 12/29/2024.
She was continued with heparin drip per vascular surgery.
She was transferred to [facility] for R hip disarticulation per vascular surgery recommendation due to metabolic derangements and progression of ischemic changes/mottling to right limb (including thigh).
Problem 2:
Acute blood loss anemia suspect 2/2 procedure.
She received a total of 2 units of FFP and 5 units RBCs during her hospital stay.
Her hemoglobin improved from 5.5 (lowest) to 10.5 at the time of discharge.
Problem 3:
XAVI suspect prerenal.
Her creatinine was up to 3.0 from baseline 0.9.
Problem 4:
SIRS likely due to critical limb ischemia and possible distributive shock.
She was started with empiric antibiotic; blood culture was negative though.
She was started with Levophed which was weaned off.
Problem 5:
Lactic acidosis likely 2/2 leg ischemia with metabolic acidosis.
Her lactic acid did improve from 8.1 (peak) to 1.4 (prior to discharge) with bicarb IV fluid.
She was transferred to [facility] SICU on 12/30/2024. Accepted by Dr. Moody, orthopedic.
Discharge Plan
-
Patient Disposition: Acute Care Hospital
Discharge Date and Time
Discharge Date/Time: 12/31/24 02:00
Print Language: MONGOLIAN
== END 2024-12-31 02:00 | disposition short-term general hospital (02) | DRG 270 ==
LOC: ICU 02:43
PROVIDERS: Nurse Practitioner; Nurse Practitioner Primary Care; Physician Assistant; Surgery; ADMITTING PHYSICIAN Internal Medicine; ATTENDING PHYSICIAN Internal Medicine; CONSULT PHYSICIAN Internal Medicine; CONSULT PHYSICIAN Internal Medicine Nephrology; CONSULT PHYSICIAN Student in an Organized Health Care Education/Training Program; EMERGENCY PHYSICIAN Emergency Medicine; FAMILY PHYSICIAN Surgery Vascular Surgery
PROC: 04CN0ZZ Extirpation of Matter from Left Popliteal Artery, Open Approach (ICD-10-PCS; 2024-12-28)
PROC: 04100JK Bypass Abdominal Aorta to Bilateral Femoral Arteries with Synthetic Substitute, Open Approach (ICD-10-PCS; 2024-12-28)
PROC: 04CK0ZZ Extirpation of Matter from Right Femoral Artery, Open Approach (ICD-10-PCS; 2024-12-28)
PROC: 04CL0ZZ Extirpation of Matter from Left Femoral Artery, Open Approach (ICD-10-PCS; 2024-12-28)
PROC: 0KNT0ZZ Release Left Lower Leg Muscle, Open Approach (ICD-10-PCS; 2024-12-28)
PROC: 04CS0ZZ Extirpation of Matter from Left Posterior Tibial Artery, Open Approach (ICD-10-PCS; 2024-12-28)
PROC: 04JY0ZZ Inspection of Lower Artery, Open Approach (ICD-10-PCS; 2024-12-29)
PROC: 3E05317 Introduction of Other Thrombolytic into Peripheral Artery, Percutaneous Approach (ICD-10-PCS; 2024-12-29)
PROC: 30243L1 Transfusion of Nonautologous Fresh Plasma into Central Vein, Percutaneous Approach (ICD-10-PCS; 2024-12-29)
PROC: 30243N1 Transfusion of Nonautologous Red Blood Cells into Central Vein, Percutaneous Approach (ICD-10-PCS; 2024-12-29)
DX: I70.223 Atherosclerosis of native arteries of extremities with rest pain, bilateral legs (principal); N17.0 Acute kidney failure with tubular necrosis; R57.8 Other shock; D68.59 Other primary thrombophilia; I74.09 Other arterial embolism and thrombosis of abdominal aorta; I75.89 Atheroembolism of other site; I74.3 Embolism and thrombosis of arteries of the lower extremities; E87.21 Acute metabolic acidosis; R65.10 Systemic inflammatory response syndrome (SIRS) of non-infectious origin without acute organ dysfunction; I74.5 Embolism and thrombosis of iliac artery; D62 Acute posthemorrhagic anemia; E66.9 Obesity, unspecified; F17.210 Nicotine dependence, cigarettes, uncomplicated; R09.02 Hypoxemia; R06.89 Other abnormalities of breathing; Z89.511 Acquired absence of right leg below knee; Z79.01 Long term (current) use of anticoagulants; Z86.718 Personal history of other venous thrombosis and embolism; Z91.148 Patient's other noncompliance with medication regimen for other reason; Z68.33 Body mass index [BMI] 33.0-33.9, adult
CPT/HCPCS: 88304; 88305; 27602; 34201; 34203; 35540; 75635; 80048; 80053; 80202; 82550; 82962; 83036; 83605; 83735; 84100; 85014; 85018; 85025; 85027; 85610; 85730; 86850; 86900; 86901; 86920; 87040; 93005; 93978; 96374; 96376; 99291; C1757; J2997; P9016; P9059; Q9967

== ENCOUNTER → 2025-03-03 12:26 | Outpatient (REF) | payer OTHER, SELFPAY | LOC: WOUND 12:26 | PROVIDERS: ATTENDING PHYSICIAN Surgery; FAMILY PHYSICIAN Family Medicine | DX: T81.31XA Disruption of external operation (surgical) wound, not elsewhere classified, initial encounter (principal); S71.001A Unspecified open wound, right hip, initial encounter; L97.322 Non-pressure chronic ulcer of left ankle with fat layer exposed; D68.59 Other primary thrombophilia; Y83.8 Other surgical procedures as the cause of abnormal reaction of the patient, or of later complication, without mention of misadventure at the time of the procedure; X58.XXXA Exposure to other specified factors, initial encounter | CPT/HCPCS: 11042; 99204 ==

== ENCOUNTER → 2025-03-04 08:07 | Outpatient (REF) | payer OTHER, SELFPAY | LOC: RAD 08:07 | PROVIDERS: ATTENDING PHYSICIAN Physician Assistant | DX: I99.8 Other disorder of circulatory system (principal); I77.9 Disorder of arteries and arterioles, unspecified | CPT/HCPCS: 93923; 93925; 93978 ==

== ENCOUNTER → 2025-03-11 10:48 | Outpatient (REF) | payer OTHER, SELFPAY | LOC: WOUND 10:48 | PROVIDERS: ATTENDING PHYSICIAN Surgery; FAMILY PHYSICIAN Family Medicine | DX: T81.31XA Disruption of external operation (surgical) wound, not elsewhere classified, initial encounter (principal); S71.001A Unspecified open wound, right hip, initial encounter; L97.322 Non-pressure chronic ulcer of left ankle with fat layer exposed; D68.59 Other primary thrombophilia; Y83.8 Other surgical procedures as the cause of abnormal reaction of the patient, or of later complication, without mention of misadventure at the time of the procedure; X58.XXXA Exposure to other specified factors, initial encounter | CPT/HCPCS: 11042; 11045; 97605 ==

== ENCOUNTER → 2025-03-18 11:17 | Outpatient (REF) | payer OTHER, SELFPAY | LOC: WOUND 11:17 | PROVIDERS: ATTENDING PHYSICIAN Surgery; FAMILY PHYSICIAN Family Medicine | DX: T81.31XA Disruption of external operation (surgical) wound, not elsewhere classified, initial encounter (principal); S71.001A Unspecified open wound, right hip, initial encounter; L97.322 Non-pressure chronic ulcer of left ankle with fat layer exposed; D68.59 Other primary thrombophilia; Y83.8 Other surgical procedures as the cause of abnormal reaction of the patient, or of later complication, without mention of misadventure at the time of the procedure | CPT/HCPCS: 11045; 97597; 97605 ==

== ENCOUNTER → 2025-03-25 11:10 | Outpatient (REF) | payer OTHER, SELFPAY | LOC: WOUND 11:10 | PROVIDERS: ATTENDING PHYSICIAN Surgery; FAMILY PHYSICIAN Family Medicine | DX: T81.31XA Disruption of external operation (surgical) wound, not elsewhere classified, initial encounter (principal); S71.001A Unspecified open wound, right hip, initial encounter; L97.322 Non-pressure chronic ulcer of left ankle with fat layer exposed; D68.59 Other primary thrombophilia; Y83.8 Other surgical procedures as the cause of abnormal reaction of the patient, or of later complication, without mention of misadventure at the time of the procedure; Y84.8 Other medical procedures as the cause of abnormal reaction of the patient, or of later complication, without mention of misadventure at the time of the procedure | CPT/HCPCS: 11042; 97605 ==

== ENCOUNTER → 2025-04-01 11:14 | Outpatient (REF) | payer OTHER, SELFPAY | LOC: WOUND 11:14 | PROVIDERS: ATTENDING PHYSICIAN Surgery; FAMILY PHYSICIAN Family Medicine | DX: T81.31XA Disruption of external operation (surgical) wound, not elsewhere classified, initial encounter (principal); S71.001A Unspecified open wound, right hip, initial encounter; L97.322 Non-pressure chronic ulcer of left ankle with fat layer exposed; D68.59 Other primary thrombophilia; Y83.8 Other surgical procedures as the cause of abnormal reaction of the patient, or of later complication, without mention of misadventure at the time of the procedure | CPT/HCPCS: 97605; 99213 ==

== ENCOUNTER → 2025-04-15 12:29 | Outpatient (REF) | payer OTHER, SELFPAY | LOC: WOUND 12:29 | PROVIDERS: ATTENDING PHYSICIAN Surgery; FAMILY PHYSICIAN Family Medicine | DX: T81.31XA Disruption of external operation (surgical) wound, not elsewhere classified, initial encounter (principal); S71.001A Unspecified open wound, right hip, initial encounter; L97.322 Non-pressure chronic ulcer of left ankle with fat layer exposed; D68.59 Other primary thrombophilia; Y83.8 Other surgical procedures as the cause of abnormal reaction of the patient, or of later complication, without mention of misadventure at the time of the procedure; X58.XXXA Exposure to other specified factors, initial encounter | CPT/HCPCS: 97605; 99213 ==

== ENCOUNTER → 2025-05-20 11:46 | Outpatient (REF) | payer OTHER, SELFPAY | LOC: WOUND 11:46 | PROVIDERS: ATTENDING PHYSICIAN Surgery; FAMILY PHYSICIAN Family Medicine | DX: T81.31XA Disruption of external operation (surgical) wound, not elsewhere classified, initial encounter (principal); S71.001A Unspecified open wound, right hip, initial encounter; L97.322 Non-pressure chronic ulcer of left ankle with fat layer exposed; D68.59 Other primary thrombophilia; Y83.8 Other surgical procedures as the cause of abnormal reaction of the patient, or of later complication, without mention of misadventure at the time of the procedure | CPT/HCPCS: 11042 ==